=== PATIENT | female | born 1990 | race Caucasian/White ===

== ENCOUNTER → 2020-06-04 15:49 | Outpatient (CLI) | payer OTHER, SELFPAY ==
--- NOTE | ~2020-06-04 | US_ITS ---
EXAMINATION: US OB <=14 wk fetus w TV DATE: 06/04/2020 16:21 INDICATION: Establish viability and dating of during first trimester TECHNIQUE: Real-time pelvic ultrasound utilizing both a transvaginal and transabdominal probe was pe rformed. The interpreting radiologist was not present for the study. COMPARISON: None. FINDINGS: The retroverted uterus measures 9.0 x 6.4 x 7.1 cm. There is an intrauterine gestational sac. A yolk sac and pole are identified. The crown rump length measures 2.3 cm, which correlates with an e stimated gestational age of 9 weeks and 0 days. heart motion is identified measuring 171 beats per minute (bpm) by M-mode Doppler.8 x 5 x 5 mm hypoechoic subchorionic hematoma. The right ovary measures 3.1 x 1.9 x 2.6 cm. The left ovary measures 2.2 x 1.6 x 1.5 cm. 1.3 x 1.1 x 0.8 cm anechoic fluid collection along side the left ovary and favor small amount of free fluid over an exophytic cyst. IMPRESSION: 1. Single living fetus with heart rate of 171 bpm. 2. Gestational age by ultrasound of 9 weeks 0 day(s) +/- 6 day(s) with ultrasound estimated date of delivery (JAMARCUS) of 01/07/2021. 3. Very small subchorionic hematoma. Reviewed, dictated and finalized at [facility]. SALESPERSON IMPRESSION: 1. Single living fetus with heart rate of 171 bpm. 2. Gestational age by ultrasound of 9 weeks 0 day(s) +/- 6 day(s) with ultraso und estimated date of delivery (JAMARCUS) of 01/07/2021. 3. Very small subchorionic hematoma.
== END ==
PROVIDERS: Visit Provider Student in an Organized Health Care Education/Training Program
DX: Z32.00 Encounter for pregnancy test, result unknown (principal); Z3A.09 9 weeks gestation of pregnancy
CPT/HCPCS: 76801; 76817

== ENCOUNTER 2020-08-06 11:30 | Outpatient (CLI) | payer BC, SELFPAY ==
[2020-08-06 12:07] LABS: Add Urine Microscopic? YES; Appearance Urine Clear (Clear); Bacteria Urine Trace /hpf; Bilirubin Urine Negative (Negative); Blood Urine Negative (Negative); Color Urine Yellow (Yellow); Glucose Urine UA Negative (Negative); Ketones Urine Negative (Negative); Leukocyte Esterase Ur Negative LEU/UL (NEGATIVE); Mucus Urine Few /lpf; Nitrate Urine Negative (Negative); Protein Urine 1+ mg/dL (Negative); RBC Urine 0-2 /hpf (0-2); Squamous Epithelial Cell Urine Many /hpf (Few); WBC Urine 0-3 /hpf (0-3)
[2020-08-06 12:11] LABS: Basophils Percent Auto 0.2 % (0.2-1.2); Eosinophils Absolute Auto 0.2 K/mm3 (0-0.3); Eosinophils Percent Auto 1.8 % (0-4.4); Hematocrit 38.9 % (37.0-47.0); Immature Granulocyte Absolute 0.06 K/mm3 (0.00-0.031); Immature Granulocyte Percent A 0.5 % (0-0.5); Lymphocytes Absolute Auto 1.93 K/mm3 (0.9-3.2); Lymphocytes Percent Auto 17.6 % (18.3-44.2); Mean Corpuscular HGB Conc 33.4 g/dl (32-36); Mean Corpuscular Hemoglobin 30.2 pg (26-34); Mean Corpuscular Volume 90.3 fl (80-100); Mean Platelet Volume 9.1 fl (7.4-10.4); Monocytes Percent Auto 8.9 % (2.6-8.5); Neutrophils Absolute Auto 7.8 K/mm3 (1.3-6.7); Platelet Count Result 291 k/mm3 (150-375); Red Blood Count 4.31 M/mm3 (4.2-5.4); Red Cell Distribution Width 12.5 % (11.5-14.5)
[2020-08-06 13:00] LABS: Thyroid Stimulating Hormone 0.821 uIU/mL (0.465-4.680)
[2020-08-06 13:09] LABS: HIV 1/2 Ab P24 Ag Result Negative (Negative)
[2020-08-06 13:15] LABS: Vitamin D 25 Hydroxy 20.3 ng/mL
[2020-08-06 13:25] LABS: Hepatitis B Surface Antigen Negative (Negative); Rubella IgG Antibody 15.6 IU/ML
[2020-08-06 13:37] LABS: Hepatitis C Virus Antibody Negative (Negative)
[2020-08-07 14:28] LABS: Rapid Plasma Reagin Non-Reactive (NonReactive)
== END 2020-08-06 11:31 | disposition home or self-care (01) ==
LOC: ANHLAB 11:33
PROVIDERS: Visit Provider Student in an Organized Health Care Education/Training Program
DX: Z34.90 Encounter for supervision of normal pregnancy, unspecified, unspecified trimester (principal); Z3A.00 Weeks of gestation of pregnancy not specified
CPT/HCPCS: 36415; 81001; 82306; 84443; 85025; 86592; 86703; 86762; 86787; 86803; 86850; 86900; 86901; 87086; 87088; 87340; G0432

== ENCOUNTER 2020-10-02 15:16 | Outpatient (CLI) | payer BC, SELFPAY ==
[2020-10-02 16:50] LABS: Basophils Percent Auto 0.2 % (0.2-1.2); Eosinophils Absolute Auto 0.2 K/mm3 (0-0.3); Eosinophils Percent Auto 1.8 % (0-4.4); Hematocrit 34.3 % (37.0-47.0); Hemoglobin 11.2 g/dL (12.0-15.0); Immature Granulocyte Absolute 0.05 K/mm3 (0.00-0.031); Immature Granulocyte Percent A 0.4 % (0-0.5); Lymphocytes Absolute Auto 2.49 K/mm3 (0.9-3.2); Lymphocytes Percent Auto 20.7 % (18.3-44.2); Mean Corpuscular HGB Conc 32.7 g/dl (32-36); Mean Corpuscular Hemoglobin 29.2 pg (26-34); Mean Corpuscular Volume 89.3 fl (80-100); Mean Platelet Volume 8.8 fl (7.4-10.4); Monocytes Absolute Auto 0.9 K/mm3 (0.1-0.6); Monocytes Percent Auto 7.1 % (2.6-8.5); Neutrophils Absolute Auto 8.4 K/mm3 (1.3-6.7); Neutrophils Percent Auto 69.8 % (45.5-73.1); Platelet Count Result 260 k/mm3 (150-375); Red Blood Count 3.84 M/mm3 (4.2-5.4); Red Cell Distribution Width 12.6 % (11.5-14.5)
[2020-10-02 17:03] LABS: Glucose 1 Hour PP 50gm Dose 100 mg/dL
== END 2020-10-02 15:17 | disposition home or self-care (01) ==
PROVIDERS: Visit Provider Student in an Organized Health Care Education/Training Program
DX: Z34.82 Encounter for supervision of other normal pregnancy, second trimester (principal)
CPT/HCPCS: 36415; 82947; 85025

== ENCOUNTER 2020-12-04 12:39 | Outpatient (CLI) | payer BC, SELFPAY ==
[2020-12-04 13:23] LABS: Basophils Percent Auto 0.3 % (0.2-1.2); Eosinophils Absolute Auto 0.3 K/mm3 (0-0.3); Eosinophils Percent Auto 2.7 % (0-4.4); Hematocrit 33.5 % (37.0-47.0); Hemoglobin 10.5 g/dL (12.0-15.0); Immature Granulocyte Absolute 0.08 K/mm3 (0.00-0.031); Immature Granulocyte Percent A 0.7 % (0-0.5); Lymphocytes Absolute Auto 2.27 K/mm3 (0.9-3.2); Lymphocytes Percent Auto 18.9 % (18.3-44.2); Mean Corpuscular HGB Conc 31.3 g/dl (32-36); Mean Corpuscular Hemoglobin 26.8 pg (26-34); Mean Corpuscular Volume 85.5 fl (80-100); Mean Platelet Volume 9.3 fl (7.4-10.4); Monocytes Absolute Auto 1.2 K/mm3 (0.1-0.6); Monocytes Percent Auto 10.1 % (2.6-8.5); Neutrophils Absolute Auto 8.1 K/mm3 (1.3-6.7); Neutrophils Percent Auto 67.3 % (45.5-73.1); Platelet Count Result 258 k/mm3 (150-375); Red Blood Count 3.92 M/mm3 (4.2-5.4); Red Cell Distribution Width 13.3 % (11.5-14.5)
[2020-12-04 14:07] LABS: HIV 1/2 Ab P24 Ag Result Negative (Negative)
[2020-12-07 09:27] LABS: Rapid Plasma Reagin Non-Reactive (NonReactive)
== END 2020-12-04 12:40 | disposition home or self-care (01) ==
PROVIDERS: Visit Provider Student in an Organized Health Care Education/Training Program
DX: Z34.90 Encounter for supervision of normal pregnancy, unspecified, unspecified trimester (principal)
CPT/HCPCS: 36415; 85025; 86592; 86703; G0432

== ENCOUNTER 2020-12-30 11:25 | Outpatient (CLI) | payer BC, SELFPAY ==
[2020-12-30 12:15] LABS: Hematocrit 32.4 % (37.0-47.0); Hemoglobin 10.3 g/dL (12.0-15.0); Mean Corpuscular HGB Conc 31.8 g/dl (32-36); Mean Corpuscular Hemoglobin 26.4 pg (26-34); Mean Corpuscular Volume 83.1 fl (80-100); Mean Platelet Volume 9.8 fl (7.4-10.4); Platelet Count Result 235 k/mm3 (150-375); Red Cell Distribution Width 14.6 % (11.5-14.5); White Blood Count 8.9 K/mm3 (4.5-10.0)
[2020-12-31 06:49] LABS: Rapid Plasma Reagin Non-Reactive (NonReactive)
== END 2020-12-30 11:26 | disposition home or self-care (01) ==
LOC: ANHLAB 11:28
PROVIDERS: Visit Provider Student in an Organized Health Care Education/Training Program
DX: O34.211 Maternal care for low transverse scar from previous cesarean delivery (principal); Z3A.39 39 weeks gestation of pregnancy
CPT/HCPCS: 36415; 85027; 86592; 86850; 86900; 86901

== ENCOUNTER 2020-12-31 05:35 | Inpatient (IN) | payer BC, SELFPAY ==
--- NOTE | 2020-12-15 12:53 | PC.NURSE ---
VERIFIED WITH OR SCHEDULE AND PATIENT--C/S ON 12/31/20 AT 0730 PATIENT GIVEN REQUISITION FOR LAB DRAW ON 12/30/20
[2020-12-31] VITALS (54 sets, daily range): BP systolic 82–132; BP diastolic 42–81; PULSE 55–231; RESP 15–20; TEMP 36.3–36.9; O2SAT 95–100; BMI 40.6
[2020-12-31] MEDS: LACTATED RINGERS 1,000 ML 999 ML IV CONT ×3 (05:58→07:00)
--- NOTE | 2020-12-31 06:53 | LDADM ---
This patient, Yana Allan, was admitted to Labor/Delivery/Recovery 120 on 12/31/20 at 05:35. Plans for labor, pain management and were discussed with patient. Patient/family oriented to hospital policies and general routines including ID bracelet, bed and alarms, visiting hours, pain management, procedures, bathroom and other care routines, personal items, smoking policy, room service/diet and guest tray routines, infant security routines, and visiting hours. Patient/Family are encouraged to report perceived risks to care and to ask questions if they do not understand what they are told or what they should do. See OBIX for further documentation.
--- NOTE | 2020-12-31 07:11 | WPDANESEPPF ---
Anes - Initial Pre Proc Eval Procedure: Operation Date: 12/31/20 07:30 Proposed Procedures p Repeat Section - Sigrid Corley MD Date/Time: 12/31/20 07:11 Surgeon: Sigrid Corley MD Pre Op Diagnosis: Patient Data Age: 30 Gender: F Height: 1.6 m Weight: 104 kg Last Vital Signs Pulse 98 12/31/20 06:46 BP 130/59 L 12/31/20 06:46 Allergies Allergy/AdvReac Type Severity Reaction Status Date / Time mushroom Allergy Unknown Hives Verified 12/31/20 06:26 sesame oil Allergy Unknown Hives Verified 12/31/20 06:26 sunflower oil Allergy Unknown Hives Verified 12/31/20 06:26 Home Medications Medication Instructions Recorded Confirmed Type docosahexaenoic acid 200 mg capsule 200 mg PO DAILY 07/30/19 12/31/20 History Patient hx anesthesia problems: none Family hx anesthesia problems: none PMFSH Past Medical History Medical History Asthma LGSIL on Pap smear of cervix Surgical History Surgical History Delivery by section History of colposcopy Family History Family History Other Unknown family medical history Social History Social History Smoking status: Never smoker Second hand tobacco smoke exposure: No Alcohol intake: never Substance use: never Spiritual care concerns: No Anes - Eval Final PreProcedure Day of Procedure 12/31/20 07:11 Patient weight: morbidly obese Heart: regular rate and rhythm Lungs: clear to auscultation and normal air movement Airway: Mallampati scale class II Neurological: alert and oriented Last oral intake: >/= 8 hours ASA classification: III Emergent: no Anesthetic plan: proceed Anesthesia type and monitoring: regional spinal Informed Consent: The patient's anesthetic plan and its attendant risks and benefits were discussed with the patient/family/POA. Questions were solicited and answers provided to the satisfaction of the patient/family/POA.
--- NOTE | 2020-12-31 07:14 | PM.IMHP ---
H&P: HPI History of Present Illness Date/Time: 12/31/20 07:14 The patient is a 30-year-old last menstrual period 04/02/2020 currently 39 weeks gestation with estimated due date of 01/08/2020. Patient is dated by LMP consistent with ultrasound on 06/04/2020 at 9 weeks gestation. Patient presents to Labor and delivery for a scheduled repeat section. Fetus also in breech presentation. Patient reports feeling well today without complaints. Denies any vaginal bleeding, leakage of fluid, or contractions. Reports good movement. Previous section was performed for breech presentation. Chief Complaint: Previous section x 1 Breech presentation Review of Systems Review of Systems: All systems reviewed & are unremarkable except as noted in HPI and below Constitutional: Constitutional: Reports as per HPI, Reports no additional constitutional complaints, Denies chills, Denies fever(s), Denies headache(s) and Denies night sweats Eyes: Eyes: Reports as per HPI and Reports no additional eye complaints ENT: Reports system reviewed and no additional complaints, except as documented, Reports as per HPI, Reports Normal hearing present and Denies headache(s) Cardiovascular: Cardiovascular: Reports as per HPI, Reports no additional cardiovascular complaints, Denies chest pain and Denies dyspnea Respiratory: Respiratory: Reports as per HPI, Reports no additional respiratory complaints, Denies cough and Denies dyspnea Gastrointestinal: Gastrointestinal: Reports as per HPI, Reports no additional gastrointestinal complaints, Denies abdominal pain, Denies change in bowel habits, Denies change in stool character, Denies nausea and Denies vomiting Genitourinary: Genitourinary: Reports no additional female genitourinary complaints, Reports as per HPI, Denies abnormal vaginal bleeding, Denies genital lesions, Denies hot flashes, Denies dyspareunia, Denies pelvic pain, Denies sexual dysfunction, Denies urinary incontinence, Denies vaginal discharge, Denies vaginal dryness and Denies vaginal odor Musculoskeletal: Musculoskeletal: Reports no additional musculoskeletal complaints and Reports as per HPI Integumentary/Breasts: Skin/Breast: Reports system reviewed and no additional complaints, except as docu, Reports as per HPI, Denies breast pain and Denies nipple discharge Neurologic: Reports system reviewed and no additional complaints, except as documented, Reports as per HPI, Reports Normal hearing present and Denies headache(s) Psychiatric: Psychiatric: Reports no additional psychiatric complaints, Reports as per HPI, Denies anxiety and Denies depression Endocrine: Endocrine: Reports no additional endocrine complaints and Reports as per HPI Hematologic/Lymphatic: Hematologic/Lymphatic: Reports no additional hematologic/lymphatic complaints and Reports as per HPI Allergic/Immunologic: Allergic/Immunologic: Reports no additional allergic/immunologic complaints and Reports as per HPI PMFSH Past Medical History Medical History Asthma LGSIL on Pap smear of cervix Surgical History Surgical History Delivery by section History of colposcopy Family History Family History Other Unknown family medical history Social History Social History Smoking status: Never smoker Second hand tobacco smoke exposure: No Alcohol intake: never Substance use: never Spiritual care concerns: No Meds Home Medications and Allergies Home Medications Medication Instructions Recorded Confirmed Type docosahexaenoic acid 200 mg capsule 200 mg PO DAILY 07/30/19 12/31/20 History Allergies Allergy/AdvReac Type Severity Reaction Status Date / Time mushroom Allergy Unknown Hives Verified 12/31/20 06:26 sesame oi
[2020-12-31] MEDS: ceFAZolin 2 GM/D5W 50 ML 2 GM/50 ML BAG IVPB (07:16)
--- NOTE | 2020-12-31 07:21 | WPDHPUPDATE1 ---
History and Physical Update Update Date/Time: 12/31/20 07:21 History and Physical has been reviewed, including an updated exam of the patient. There are NO changes in the patient's condition. Risks, benefits, and alternatives have been discussed and questions answered. Patient agrees to proceed with procedure.
[2020-12-31] MEDS: KETOROLAC 30 MG/ML VIAL (*BKC) IV PUSH (09:15)
--- NOTE | 2020-12-31 09:23 | W.PM.PROC2 ---
Procedure Note - Detailed Date of Procedure 12/31/20 Pre-op Diagnosis Previous section x 1 Breech presentation Post-op Diagnosis same Procedure Performed Repeat low transverse section via Pfannenstiel Surgeon Sigrid Corley MD Staffing Coordinator Bonnie Limon Anesthesia spinal Findings Live female in cephalic presentation, apgars 8/9, weighing 8 lbs. 5 oz.; clear amniotic fluid; normal appearing uterus, ovaries, and fallopian tubes; two small approximately 1 cm paratubal cysts noted, one on the left side and one on the right side Description of Procedure The patient was taken to the operating room, where she self-transferred to the operating room table. Spinal anesthesia was administered and found to be adequate. The patient was placed in dorsal supine position with a leftward tilt. She was prepped and draped in the usual sterile fashion. Spinal anesthesia was tested and found to be adequate. A Pfannenstiel skin incision was made with a scalpel and carried through to underlying layer of fascia with the Bovie. Dense scar tissue was noted. The fascia was incised in the midline and the incision was extended laterally with the use of forceps and Naylor scissors. The inferior aspect of the fascial incision was grasped with Mary clamps, elevated, and the underlying rectus muscle were dissected off with Naylor scissors. Attention was then turned to the superior aspect of the fascial incision, which in a similar manner, was grasped with Mary clamps, elevated, and the underlying rectus muscles were also dissected off with Naylor scissors. The rectus muscles were in the midline and the peritoneal cavity was entered bluntly. This incision was extended superiorly and inferiorly with good visualization of the bladder and care was taken to avoid blood vessels. A bladder blade was inserted. The vesicouterine peritoneum was identified and incised sharply with Metzenbaum scissors. This incision was extended laterally with Metzenbaum scissors and a bladder flap was created digitally. The bladder blade was replaced. A low-transverse uterine incision was made with a scalpel. This incision was extended laterally with bandage scissors. Amniotomy was performed. Clear amniotic fluid was noted. Infant's buttocks were identified and guided to the uterine incision. The buttocks were then delivered through the incision. Infant was in michael breech presentation as both legs were fully extended towards head. The sacral crests were grasped and was slowly guided through incision. Terminal meconium was noted and infant voided. The was grasped with a blue towel. When infant was delivered to a level above the abdomen, the right lower extremity was flexed and completely delivered. The infant was gently rotated to the right and the left lower extremity was delivered. The infant was then guided to the level of the scapulae. was rotated to the left and the right upper extremity was flexed and delivered. The infant was then rotated to the right and the left upper extremity was flexed and delivered. The head was then flexed and delivered easily and without difficulty. The entire was delivered atraumatically. Infant's nose and mouth were suctioned bulb suction. The cord was clamped and cut and the was handed off to waiting nursing staff. A segment of cord was collected for cord gases. Cord blood was also collected. The placenta was then delivered manually with gentle uterine massage. Uterus was exteriorized and cleared of all clots and debris. The uterine incision was reapproximated with 0 Vicryl in a running, locked fashion. A second imbricating layer using 0 Monocryl performed. A small area of bleeding inferior to the uterine incision was noted. A single figure of eight suture was placed. Excellent hemostasis was noted. On inspection, the uterus, ovaries, and fallopian tubes appeared to be normal bilaterally. Two small 1cm paratubal cysts were noted, one o
[2020-12-31] MEDS: OXYTOCIN 30 UNITS/NS 500 ML 30 UNITS/500 ML BAG 125 UNITS IV CONT (10:21)
--- NOTE | 2020-12-31 12:02 | PC.NURSE ---
Patient transferred to post room #281 via stretcher. Support person present. Oriented to unit, room, information board, rooming in, admission packet and security measures. Patient verbalizes understanding.
[2020-12-31] MEDS: DEXTROSE 5%/0.45% SOD CHL 1,000 ML 125 ML IV CONT (15:00)
[2020-12-31] MEDS: HYDROcodone/acetaminophen (*CRX) 5-325 MG TABLET 1 TAB PO (21:40)
[2020-12-31] MEDS: IBUPROFEN 600 MG TABLET PO (21:40)
[2021-01-01 03:00] VITALS: BP 101/57; PULSE 90; RESP 16; TEMP 36.9
[2021-01-01 04:54] LABS: Basophils Percent Auto 0.3 % (0.2-1.2); Eosinophils Absolute Auto 0.1 K/mm3 (0-0.3); Hematocrit 28.9 % (37.0-47.0); Hemoglobin 8.7 g/dL (12.0-15.0); Immature Granulocyte Absolute 0.06 K/mm3 (0.00-0.031); Immature Granulocyte Percent A 0.6 % (0-0.5); Lymphocytes Absolute Auto 2.19 K/mm3 (0.9-3.2); Lymphocytes Percent Auto 20.5 % (18.3-44.2); Mean Corpuscular HGB Conc 30.1 g/dl (32-36); Mean Corpuscular Hemoglobin 25.3 pg (26-34); Mean Platelet Volume 10.2 fl (7.4-10.4); Monocytes Absolute Auto 1.1 K/mm3 (0.1-0.6); Monocytes Percent Auto 10.3 % (2.6-8.5); Neutrophils Absolute Auto 7.2 K/mm3 (1.3-6.7); Neutrophils Percent Auto 67.3 % (45.5-73.1); Platelet Count Result 216 k/mm3 (150-375); Red Blood Count 3.44 M/mm3 (4.2-5.4); Red Cell Distribution Width 14.5 % (11.5-14.5); White Blood Count 10.7 K/mm3 (4.5-10.0)
[2021-01-01 08:15] VITALS: BP 97/56; PULSE 89; RESP 18; TEMP 37.3; O2SAT 99
[2021-01-01] MEDS: POLYSACCHARIDE IRON COMPLEX 150 MG CAPSULE PO ×2 (08:31→17:09)
[2021-01-01] MEDS: DOCUSATE SODIUM 100 MG CAPSULE PO ×2 (08:31→17:09)
[2021-01-01] MEDS: MULTIVIT/MIN/PREN/FOL AC/IRON TABLET 1 TAB PO (08:32)
[2021-01-01] MEDS: IBUPROFEN 600 MG TABLET PO ×3 (08:32→20:47)
--- NOTE | 2021-01-01 08:52 | WPDANLDPN2 ---
Anes-Prog Note L&D Date/Time: 01/01/21 08:52 Comfortable throughout: section Neuraxial method: spinal Epidural/Spinal procedure site: clean & non-tender Neuro status: Neuro function grossly intact. Cardiovascular status: normal Respiratory status: normal Airway patency: baseline Mental status: baseline Post-Op hydration status: normal Vital Signs: Last Vital Signs Temp 36.9 C 01/01/21 03:00 Pulse 90 01/01/21 03:00 Resp 16 01/01/21 03:00 BP 101/57 L 01/01/21 03:00 Pulse Ox 99 12/31/20 16:15 Pain score (VAS): 0 I/O: Intake & Output 12/31/20 01/01/21 01/01/21 23:59 07:59 15:59 Intake Total 2700 Output Total 125 1300 Balance 2575 -1300 Post-procedural complaints: none Patient feedback: Patient satisfied with anesthetic care.
--- NOTE | 2021-01-01 08:52 | WPDANLDNPN2 ---
Anes-Prog Note L&D-Neuraxial Date/Time: 01/01/21 08:52 Neuraxial medications: intrathecal PF morphine Opiod-related complaints: none Patient feedback: Patient satisfied with post-operative pain management.
--- NOTE | 2021-01-01 10:22 | P.PNOB_ITS ---
OB - PN: Subj Subjective Date/time seen: 01/01/21 10:22 Patient doing well this morning. Pain well controlled with medication. Denies any headache, chest pain, shortness of breath, nausea, or vomiting. Tolerating PO diet. Ndiaye catheter recently removed. Ambulating without difficulty. Has voided once. No flatus yet. OB - PN: Obj Data Labs CBC & Chem 7: 01/01/21 03:41 Labs: Laboratory Results - last 24 hr 01/01/21 03:41 WBC 10.7 H RBC 3.44 L Hgb 8.7 L Hct 28.9 L MCV 84.0 MCH 25.3 L MCHC 30.1 L RDW 14.5 Plt Count 216 MPV 10.2 Immature Gran % (Auto) 0.6 H Neut % (Auto) 67.3 Lymph % (Auto) 20.5 [place] % (Auto) 10.3 H Eos % (Auto) 1.0 Baso % (Auto) 0.3 Lymph # (Auto) 2.19 [place] # (Auto) 1.1 H Eos # (Auto) 0.1 Baso # (Auto) 0.0 Abs Immat Gran (auto) 0.06 H Absolute Neuts (auto) 7.2 H Absolute Nucleated RBC 0.0 Nucleated RBC % 0.0 OB - PN A/P Assessment and Plan (1) Delivery by section for breech presentation: Code(s): O32.1XX0 - Maternal care for breech presentation, not applicable or unspecified Status: Acute Assessment and Plan: POD#1 doing well pain management PRN encourage ambulation and use of IS possible dc home tomorrow Time Spent With Patient Time: Total time spent is greater than 50% in coordination of care (as documented) at patient's floor/unit and/or counseling patient: Exam Const: General: cooperative, healthy appearing, comfortable and no acute distress GI: Inspection: non-distended GI Palp: Yes Soft to palpation and Yes Tenderness to palpation present (GI) (appropriately tender) Other: incision c/d/i Extrem: Right lower extremity: edema Details: 2+ Left lower extremity: edema Details: 2+ Other: no calf tenderness
[2021-01-01] MEDS: HYDROcodone/acetaminophen (*CRX) 5-325 MG TABLET 1 TAB PO ×2 (14:43→19:10)
[2021-01-01 20:45] VITALS: BP 115/61; PULSE 96; RESP 18; TEMP 36.5; O2SAT 98
[2021-01-02] MEDS: HYDROcodone/acetaminophen (*CRX) 5-325 MG TABLET 1 TAB PO (02:30)
[2021-01-02] MEDS: IBUPROFEN 600 MG TABLET PO ×2 (02:31→10:22)
[2021-01-02 08:00] VITALS: BP 124/74; PULSE 88; RESP 18; TEMP 36.8; O2SAT 99
--- NOTE | 2021-01-02 08:09 | PM.OBPNVD ---
OB - PN: Subj Subjective Date/time seen: 01/02/21 08:09 Patient comments: no complaints, pain well controlled, tolerating diet, flatus present and other (Ambulating and voiding without problems. Lochia similar to menses) baby status: doing well OB - PN: Obj Data Labs CBC & Chem 7: 01/01/21 03:41 OB - PN A/P Plan day: 2 (s/p C section, doing well) Plan: routine care and discharge home (Follow up in 2 weeks) Time Spent With Patient Time: Total time spent is greater than 50% in coordination of care (as documented) at patient's floor/unit and/or counseling patient: Time with patient: less than 15 minutes Exam Const: General: no acute distress Resp: Auscultation: clear to auscultation bilaterally Cardio: Rate: regular rate Rhythm: regular rhythm GI: Inspection: non-distended, incision (Intact without erythema, drainage, or induration) and other (Fundus firm and nontender below umbilicus) GI Palp: Yes abdominal tenderness (appropriate) and Yes Soft to palpation Extrem: General: no edema
--- NOTE | 2021-01-02 08:10 | PM.OBDSVD ---
DS: Admitting Diagnosis Admitting Diagnosis Admitting Diagnosis: breech presentation, prior C section DS: Discharge Diagnosis Discharge Diagnosis (1) Delivery by section for breech presentation: Code(s): O32.1XX0 - Maternal care for breech presentation, not applicable or unspecified Status: Acute OB - DS: Summary OB Procedures : None OB Procedures Intrapartum: OB Procedures: : None Peripartum Data Delivery Method: Section Procedures: Procedures Operation Date: 12/31/20 07:30 Actual Procedure Side Surgeon p Repeat Section Sigrid Corley MD complications: none Status at Discharge Functional status at discharge: independent ambulation Overall status at discharge: patient is progressing back to baseline Time Spent with Patient Time attestation: Total time spent providing and/or coordinating discharge services: Time spent: Less than 30 minutes Discharge Plan Discharge Attending physician on discharge: Sigrid Corley Discharging Clinician: Nina Apodaca Patient Disposition: Home, Self-Care Activity: may shower and pelvic rest Diet: as tolerated Wound Care Instructions: incision open to air Patient Instructions: Antibiotic Form Stand Alone Forms: General Discharge Information Follow-up/Referrals: Sigrid Corley MD [Physician] - 2 Weeks Discharge Medications: New hydrocodone-acetaminophen 5-325 mg Tablet 1 tablet PO Q4H PRN (Reason: Moderate Pain (4-6)) Qty: 30 RF: 0 ibuprofen 600 mg Tablet 600 mg PO Q6H PRN (Reason: Cramping) Qty: 60 RF: 0 Continued DHA 200 mg capsule 200 mg PO DAILY RF: 0 Date of admission: 12/31/20 05:35 Primary Care Provider: PHYSICIAN,[employer] INSTRUCTOR Admitting Provider: Sigrid Corley Attending physician on admission: Sigrid Corley Condition: Stable
[2021-01-02] MEDS: POLYSACCHARIDE IRON COMPLEX 150 MG CAPSULE PO (10:21)
[2021-01-02] MEDS: MULTIVIT/MIN/PREN/FOL AC/IRON TABLET 1 TAB PO (10:22)
[2021-01-02] MEDS: DOCUSATE SODIUM 100 MG CAPSULE PO (10:22)
[2021-01-04 10:31] VITALS: BP 136/87; PULSE 83; RESP 20; TEMP 36.9; O2SAT 100
== END 2021-01-02 14:14 | disposition home or self-care (01) | DRG 788 ==
LOC: ANHOB2 01-02 13:11 → ANHLDR 01-05 06:59 → ANHOB2 01-05 06:59
PROVIDERS: Admitting Provider Student in an Organized Health Care Education/Training Program; Visit Provider Obstetrics & Gynecology
PROC: 10D00Z1 Extraction of Products of Conception, Low, Open Approach (ICD-10-PCS; CPT 59514; principal; 2020-12-31 07:30)
DX: O34.211 Maternal care for low transverse scar from previous cesarean delivery (principal); O32.1XX0 Maternal care for breech presentation, not applicable or unspecified; O34.83 Maternal care for other abnormalities of pelvic organs, third trimester; Z3A.39 39 weeks gestation of pregnancy; Z37.0 Single live birth; N83.8 Other noninflammatory disorders of ovary, fallopian tube and broad ligament
CPT/HCPCS: 36415; 85025; A9270; J0131; J0690; J1885; J2274; J2370; J2405; J2590; J7120

== ENCOUNTER → 2022-12-22 15:35 | Outpatient (CLI) | payer OTHER, SELFPAY ==
--- NOTE | ~2022-12-22 | US_ITS ---
. US OB <=14 wk fetus w TV DATE: 12/22/2022 16:04 INDICATION: age and viability determination TECHNIQUE: Real-time imaging and Doppler analysis COMPARISON: None FINDINGS: The uterus measures 9.5 cm height, 5.0 cm AP and 5.1 cm transverse dimension. A normally sh aped intrauterine gestational sac is noted in the uterine fundus, with normal surrounding hyperechoge nicity consistent with normal decidual reaction. Yolk sac and pole are identified, with h eart rate of 176 bpm. There is an approximately 2.6 x 9 x 6 mm sonolucency and another 2.7 x 6.4 x 3 mm sonolucency subjace nt to the gestational sac, suggesting small areas of subchorionic hemorrhage, undermining only a smal l percentage of the gestational sac. [place]-rump length averages 2.04 cm, consistent with estimated gestational age of 8 weeks 4 days +/- 5 days, with JAMARCUS of 07/30/2023. Approximately 1 cm left ovarian cyst. Smaller right ovarian follicular cyst. No abnormal pelvic free fluid collection is detected. IMPRESSION: Estimated gestational age of 8 weeks 4 days +/- 5 days, with JAMARCUS of 07/30/2023 2 small areas of subchorionic hemorrhage, undermining only a very small percentage of the gestational sac Reviewed, dictated and finalized at [facility] Reviewed, dictated and finalized at [facility]. IMPRESSION: Estimated gestational age of 8 weeks 4 days +/- 5 days, with JAMARCUS of 07/30/2023 2 small areas of subchorionic hemorrhage, undermining only a very small percent age of the gestational sac
== END ==
PROVIDERS: PCP Family Medicine Sports Medicine; Visit Provider Registered Nurse
DX: Z36.87 Encounter for antenatal screening for uncertain dates (principal); O46.91 Antepartum hemorrhage, unspecified, first trimester; Z3A.08 8 weeks gestation of pregnancy
CPT/HCPCS: 76801; 76817

== ENCOUNTER 2023-01-13 16:28 | Outpatient (CLI) | payer OTHER, SELFPAY ==
--- NOTE | ~2023-01-13 | US_ITS ---
EXAMINATION: US OB <= 14 weeks fetus DATE: 01/13/2023 17:02 INDICATION: Abnormal ultrasound finding on screening during first trimester of TECHNIQUE: Real-time pelvic ultrasound utilizing transabdominal probe was performed. The [place] val[place]ia radiologist was not present for the study. COMPARISON: 12/22/2022 FINDINGS: There is an intrauterine gestational sac with single fetus. The crown rump length measures 5.4 cm, wh ich correlates with an estimated gestational age of 12 weeks and 0 days. heart motion is identi fied measuring 157 beats per minute (bpm) by M-mode Doppler. Placenta appears to be forming on the le ft. No evident subchorionic hematoma. The right ovary measures 3.0 x 1.7 x 2.2 with internal vascular flow on color Doppler. The left ovary is not visualized. There is no free fluid in the pelvis. IMPRESSION: 1. Single living fetus with heart of 157 bpm. 2. [place]-rump length concordant within 2 days of the previously estimated gestational age by ultrasou nd of 11 weeks 5 days with ultrasound estimated date of delivery (JAMARCUS) of 07/30/2023 based upon prior ultrasound performed on 12/22/2022. 3. No evident subchorionic hematoma. Reviewed, dictated and finalized at [facility]. IMPRESSION: 1. Single living fetus with heart of 157 bpm. 2. [place]-rump length concordant within 2 days of the previously estimated gesta tional age by ultrasound of 11 weeks 5 days with ultrasound estimated date of d elivery (JAMARCUS) of 07/30/2023 based upon prior ultrasound performed on 12/22/2022. 3. No evident subchorionic hematoma.
== END 2023-01-13 16:29 | disposition home or self-care (01) ==
PROVIDERS: PCP Family Medicine Sports Medicine; Visit Provider Obstetrics & Gynecology
DX: O28.3 Abnormal ultrasonic finding on antenatal screening of mother (principal); Z3A.11 11 weeks gestation of pregnancy
CPT/HCPCS: 76801

== ENCOUNTER 2023-01-19 09:45 | Outpatient (CLI) | payer OTHER, SELFPAY ==
[2023-01-19 10:34] LABS: Basophils Percent Auto 0.3 % (0.2-1.2); Eosinophils Absolute Auto 0.1 K/mm3 (0-0.3); Eosinophils Percent Auto 1.8 % (0-4.4); Hematocrit 38.5 % (37.0-47.0); Hemoglobin 12.6 g/dL (12.0-15.0); Immature Granulocyte Absolute 0.02 K/mm3 (0.00-0.031); Immature Granulocyte Percent A 0.3 % (0-0.5); Lymphocytes Absolute Auto 1.71 K/mm3 (0.9-3.2); Lymphocytes Percent Auto 23.7 % (18.3-44.2); Mean Corpuscular HGB Conc 32.7 g/dl (32-36); Mean Corpuscular Hemoglobin 28.6 pg (26-34); Mean Corpuscular Volume 87.3 fl (80-100); Mean Platelet Volume 9.1 fl (7.4-10.4); Monocytes Absolute Auto 0.6 K/mm3 (0.1-0.6); Monocytes Percent Auto 7.6 % (2.6-8.5); Neutrophils Absolute Auto 4.8 K/mm3 (1.3-6.7); Neutrophils Percent Auto 66.3 % (45.5-73.1); Platelet Count Result 314 k/mm3 (150-375); Red Blood Count 4.41 M/mm3 (4.2-5.4); Red Cell Distribution Width 13.4 % (11.5-14.5); White Blood Count 7.2 K/mm3 (4.5-10.0)
[2023-01-19 10:40] LABS: Appearance Urine Clear (Clear); Bilirubin Urine Negative (Negative); Blood Urine Negative (Negative); Color Urine Yellow (Yellow); Glucose Urine UA Negative (Negative); Ketones Urine Trace mg/dL (Negative); Leukocyte Esterase Ur Negative LEU/UL (NEGATIVE); Nitrate Urine Negative (Negative); Protein Urine Negative (Negative); Specific Grav Ur 1.028 (1.001-1.035)
[2023-01-19 10:46] LABS: Add Urine Microscopic? NO
[2023-01-19 11:15] LABS: Thyroid Stimulating Hormone 0.184 uIU/mL (0.465-4.680)
[2023-01-19 11:24] LABS: HIV 1/2 Ab P24 Ag Result Negative (Negative)
[2023-01-19 11:36] LABS: Rubella IgG Antibody 17.2 IU/ML
[2023-01-19 11:40] LABS: Hepatitis B Surface Antigen Negative (Negative)
[2023-01-19 11:50] LABS: Hepatitis C Virus Antibody Negative (Negative)
[2023-01-20 16:39] LABS: Rapid Plasma Reagin Non-Reactive (NonReactive)
[2023-01-23 18:32] LABS: Hematocrit 38.2 % (35.0-45.0); Hemoglobin 12.7 g/dL (11.7-15.5); MCH 28.6 pg (27.0-33.0); RDW 13.9 % (11.0-15.0); Red Blood Cell Count 4.44 Mill/uL (3.80-5.10)
== END 2023-01-19 09:46 | disposition home or self-care (01) ==
PROVIDERS: PCP Family Medicine Sports Medicine; Visit Provider Obstetrics & Gynecology
DX: Z34.90 Encounter for supervision of normal pregnancy, unspecified, unspecified trimester (principal); Z3A.00 Weeks of gestation of pregnancy not specified
CPT/HCPCS: 36415; 81003; 82306; 83021; 84443; 85025; 86592; 86703; 86762; 86787; 86803; 86850; 86900; 86901; 87086; 87088; 87147; 87340; G0432

== ENCOUNTER 2023-02-26 22:29 | Inpatient (IN) | payer OTHER, SELFPAY ==
[2023-02-26 22:36] VITALS: BP 133/87; PULSE 89; RESP 16; TEMP 36.2; O2SAT 100
--- NOTE | 2023-02-26 23:24 | ED.GENADULT ---
HPI - General Adult General Chief complaint: Vaginal Bleeding Stated complaint: 18 weeks vag bleeding. Time Seen by Provider: 02/26/23 22:43 History of Present Illness HPI narrative: This is a 32-year-old female G5 P 2021 with miscarriages at 12 weeks x2 presenting ED with vaginal bleeding. Patient is currently 18 weeks . There this morning she started have some cramping and is now having some spotting with increased bleeding. She has not gone through more than 1 pad. Patient reach out to her OBGYN Dr. Prabhakar was advised to come to the emergency room for evaluation. Related Data Home Medications Medication Instructions Recorded Confirmed docosahexaenoic acid 200 mg 200 mg PO DAILY 07/30/19 01/20/23 capsule ( DHA) Allergies Allergy/AdvReac Type Severity Reaction Status Date / Time mushroom Allergy Unknown Hives Verified 02/14/23 11:04 sesame oil Allergy Unknown Hives Verified 02/14/23 11:04 sunflower oil Allergy Unknown Hives Verified 02/14/23 11:04 PMFSH Past Medical History Medical History Asthma LGSIL on Pap smear of cervix Miscarriage x2 Surgical History Surgical History Delivery by section x2 History of colposcopy Family History Family History Other Unknown family medical history Social History Social History Smoking status: Never smoker Second hand tobacco smoke exposure: No Alcohol intake: never Substance use: never Lack of Transportation: No Lack of Food: Never True Current Housing: I Have Housing Concerned About Future Housing: No Difficulty Paying Gas/Electric Bills: No Difficulty Paying for Meds: No Currently Unemployed: No Education: Associate Degree Difficulty w/ Childcare or Family Care: No Spiritual care concerns: No Exam Narrative: APPEARANCE: No apparent distress. Head: atraumatic. EYES: EOMI, NOSE: Atraumatic NECK: Trachea midline RESPIRATORY: No increased rate of breathing CARDIOVASCULAR: RRR, ABDOMINAL: soft nontender no guarding or rebound MUSCULOSKELETAl: No obvious deformities NEURO: Alert. Moving 4/4 extremities SKIN:: Warm, dry. Normal color PSYCHIATRIC: Normal affec point of care transabdominal OB ultrasound revealed an intrauterine fetus with no visible heart rate.t Course Vital Signs Vital signs: Vital Signs Temperature 97.1 F L 02/26/23 22:36 Pulse Rate 89 02/26/23 22:36 Respiratory Rate 16 02/26/23 22:36 Blood Pressure 133/87 02/26/23 22:36 Pulse Oximetry 100 02/26/23 22:36 Oxygen Delivery Room Air 02/26/23 22:36 Temperature 97.1 F L 02/26/23 22:36 Pulse Rate 89 02/26/23 22:36 Respiratory Rate 16 02/26/23 22:36 Blood Pressure 133/87 02/26/23 22:36 Pulse Oximetry 100 02/26/23 22:36 Oxygen Delivery Room Air 02/26/23 22:36 Medical Decision Making MDM Narrative Medical decision making narrative: -Presentation: 32-year-old female presenting with abdominal cramping and spotting. -DDX includes but is not limited to: Intrauterine demise, spotting of , postcoital bleeding -Co-morbidities complicating care: multiple miscarriages at 12 weeks -Social determinants of health: lives with her -External Chart Review: review of OBGYN notes from February 14 - from independent Sources: at bedside -Independent interpretation of studies: point of care transabdominal ultrasound revealed no heart rate. -Discussion of Management/Consultants: Dr. Prabhakar - OB -Shared decision making / Disposition: no for heart tones on my point of care transabdominal ultrasound. No formal ultrasounds are available this time. Case was discussed with Dr. Prabhakar would like the patient admitted to [facility]
[2023-02-26 23:46] LABS: Appearance Urine Cloudy (Clear); Bacteria Urine None Seen /hpf; Bilirubin Urine Negative (Negative); Blood Urine 3+ (Negative); Color Urine Dark Yellow (Yellow); Glucose Urine UA Negative (Negative); Ketones Urine 1+ mg/dL (Negative); Leukocyte Esterase Ur 1+ LEU/UL (Negative); Nitrate Urine Negative (Negative); Non Pathogenic Casts 0-2; Protein Urine Trace mg/dL (Negative); RBC Urine >100 /hpf (0-2); Squamous Epithelial Cell Urine None seen /hpf (Few); pH Urine 5.5 (5.0-9.0)
[2023-02-26 23:49] LABS: Add Urine Microscopic? YES
[2023-02-26 23:53] LABS: Basophils Percent Auto 0.2 % (0.2-1.2); Eosinophils Absolute Auto 0.1 K/mm3 (0-0.3); Eosinophils Percent Auto 0.7 % (0-4.4); Hematocrit 35.9 % (37.0-47.0); Hemoglobin 11.9 g/dL (12.0-15.0); Immature Granulocyte Absolute 0.04 K/mm3 (0.00-0.031); Immature Granulocyte Percent A 0.3 % (0-0.5); Lymphocytes Absolute Auto 2.57 K/mm3 (0.9-3.2); Mean Corpuscular HGB Conc 33.1 g/dl (32-36); Mean Corpuscular Hemoglobin 28.5 pg (26-34); Mean Corpuscular Volume 86.1 fl (80-100); Monocytes Absolute Auto 0.9 K/mm3 (0.1-0.6); Monocytes Percent Auto 6.4 % (2.6-8.5); Neutrophils Absolute Auto 9.9 K/mm3 (1.3-6.7); Neutrophils Percent Auto 73.4 % (45.5-73.1); Platelet Count Result 253 k/mm3 (150-375); Red Blood Count 4.17 M/mm3 (4.2-5.4); Red Cell Distribution Width 12.9 % (11.5-14.5); White Blood Count 13.5 K/mm3 (4.5-10.0)
[2023-02-26] MEDS: ACETAMINOPHEN 500 MG TABLET 1000 MG PO (23:55)
[2023-02-27] VITALS (52 sets, daily range): BP systolic 90–130; BP diastolic 41–99; PULSE 52–244; RESP 15–16; TEMP 36.5–37.1; O2SAT 92–100
[2023-02-27 00:04] LABS: Partial Thromboplastin Time 26.2 SECONDS (22.3-36.8); Prothrombin Time 13.5 Seconds (11.1-14.7)
[2023-02-27] MEDS: LACTATED RINGERS 1,000 ML 125 ML IV CONT (00:30)
[2023-02-27] MEDS: HYDROmorphone HCL INJ (*CRX) 1 MG/ML SYR 0.5 MG IV PUSH (00:35)
--- NOTE | 2023-02-27 00:50 | WPDANESEPP ---
Anes - Eval Pre Procedure Procedure: labor epidural Date/Time: 02/27/23 00:50 Surgeon: merlin Preop Diagnosis: pain during labor, demise Pre Op Diagnosis: demise Patient Data Age: 32 Gender: F Height: 1.63 m Weight: 106.7 kg Last Vital Signs Temp 36.2 C L 02/26/23 22:36 Pulse 58 L 02/27/23 00:31 Resp 16 02/26/23 22:36 BP 119/68 02/27/23 00:31 Pulse Ox 98 02/27/23 00:33 O2 Del Method Room Air 02/26/23 22:36 Allergies Allergy/AdvReac Type Severity Reaction Status Date / Time mushroom Allergy Unknown Hives Verified 02/14/23 11:04 sesame oil Allergy Unknown Hives Verified 02/14/23 11:04 sunflower oil Allergy Unknown Hives Verified 02/14/23 11:04 Home Medications Medication Instructions Recorded Confirmed Type docosahexaenoic acid 200 mg 200 mg PO DAILY 07/30/19 01/20/23 History capsule ( DHA) ondansetron HCl 4 mg tablet 4 mg PO Q6H PRN nausea and 02/14/23 Rx vomiting #20 tabs Laboratory Tests 02/26/23 02/26/23 23:32 23:48 WBC 13.5 H K/mm3 (4.5-10.0) RBC 4.17 L M/mm3 (4.2-5.4) Hgb 11.9 L g/dL (12.0-15.0) Hct 35.9 L % (37.0-47.0) MCV 86.1 fl (80-100) MCH 28.5 pg (26-34) MCHC 33.1 g/dl (32-36) RDW 12.9 % (11.5-14.5) Plt Count 253 k/mm3 (150-375) MPV 9.0 fl (7.4-10.4) Immature Gran % (Auto) 0.3 % (0-0.5) Neut % (Auto) 73.4 H % (45.5-73.1) Lymph % (Auto) 19.0 % (18.3-44.2) [place] % (Auto) 6.4 % (2.6-8.5) Eos % (Auto) 0.7 % (0-4.4) Baso % (Auto) 0.2 % (0.2-1.2) Lymph # (Auto) 2.57 K/mm3 (0.9-3.2) [place] # (Auto) 0.9 H K/mm3 (0.1-0.6) Eos # (Auto) 0.1 K/mm3 (0-0.3) Baso # (Auto) 0.0 K/mm3 (0.0-0.1) Abs Immat Gran (auto) 0.04 H K/mm3 (0.00-0.031) Absolute Neuts (auto) 9.9 H K/mm3 (1.3-6.7) Absolute Nucleated RBC 0.0 K/mm3 (0.0-0.012) Nucleated RBC % 0.0 % (0.0-0.2) PT 13.5 Seconds (11.1-14.7) INR 1.0 APTT 26.2 SECONDS (22.3-36.8) Sodium Pending Potassium Pending Chloride Pending Carbon Dioxide Pending Anion Gap Pending BUN Pending Creatinine Pending Estim Creat Clear Calc Pending Estimated GFR Pending Glucose Pending Calcium Pending Beta HCG, Quant 683.61 mIU/ML Urine Color Dark yellow (Yellow) Urine Appearance Cloudy H (Clear) Urine pH 5.5 (5.0-9.0) Ur Specific [place] 1.020 (1.001-1.035) Urine Protein Trace mg/dL (Negative) Urine Glucose (UA) Negative mg/dL (Negative) Urine Ketones 1+ H mg/dL (Negative) Ur Blood (Man) 3+ H (Negative) Urine Nitrate Negative (Negative) Urine Bilirubin Negative (Negative) Urine Urobilinogen 1.0 mg/dL (<2.0) Leukocyte Esterase Rfl 1+ H ANALI/UL (Negative) Urine RBC >100 H /hpf (0-2) Urine WBC 6-10 H /hpf Ur Squamous Epith Cells None seen /hpf (Few) Urine Bacteria None seen /hpf Urine Casts 0-2 Patient hx anesthesia problems: none Family hx anesthesia problems: none Results Review: All pre-operative results and documents have been reviewed as part of the pre-operative evaluation. [facility] Past Medical History Medical History Asthma LGSIL on Pap smear of cervix Miscarriage x2 Surgical History Surgical History Delivery by section x2 History of colposcopy Family History Family History Other Unknown family medical history Social History Social History Smoking status: Never smoker Second
[2023-02-27] MEDS: fentaNYL CITRATE INJ (*CRX) 100 MCG/2 ML VIAL 50 MCG IV PUSH (00:56)
[2023-02-27 01:22] LABS: Anion Gap 9 mmol/L (8-16); Blood Urea Nitrogen 4 mg/dL (7-17); Calcium 8.4 mg/dL (8.4-10.2); Carbon Dioxide 20 mmol/L (22-30); Chloride 107 mmol/L (98-107); Estimated CRCL calculation 195 ml/min; Estimated Glomerular Filt Rate > 60; Glucose 125 mg/dL (65-110); Potassium 3.5 mmol/L (3.4-5.0); Sodium 136 mmol/L (137-145)
[2023-02-27 01:42] LABS: Free T4 Free Thyroxine 1.26 ng/mL (0.78-2.19); Hemoglobin A1C 5.4 % (<5.7); Thyroid Stimulating Hormone 0.382 uIU/mL (0.465-4.680)
[2023-02-27] MEDS: OXYTOCIN 30 UNITS/NS 500 ML 30 UNITS/500 ML BAG 999 UNITS IV CONT (02:47)
[2023-02-27] MEDS: miSOPROStol 200 MCG TABLET 600 MCG VAGINAL (02:50)
[2023-02-27 02:54] LABS: Barbiturate Screen Urine Negative (Negative); Benzodiazepines Screen Urine Negative (Negative)
--- NOTE | 2023-02-27 02:59 | PM.IMHP ---
H&P: HPI History of Present Illness Date/Time: 02/27/23 02:59 Chief Complaint: demise Narrative: Patient at 19 weeks by LMP presented to ED with complaints of vaginal bleeding. She had mild spotting early afternoon and was told to rest and if increased or cramping then call back. She called with increase bleeding and instructed to go to ED. In ED, cardiac activity could not be detected by ultrasound. She then started having severe contractions. I did another bedside ultrasound while she was in the ED and I also could not detect heart tones. The fetus was in the lower uterus. Normal amount of amniotic fluid noted. She was informed of diagnosis of demise and need to proceed with induction of labor. PNC significant for GBS in urine. She did not take all of antibiotics. Review of Systems Review of Systems: All systems reviewed & are unremarkable except as noted in HPI and below Constitutional: Constitutional: Reports no additional constitutional complaints and Denies headache(s) Eyes: Eyes: Denies spots in vision ENT: Reports system reviewed and no additional complaints, except as documented and Denies headache(s) Cardiovascular: Cardiovascular: Denies chest pain and Denies dyspnea Respiratory: Respiratory: Denies dyspnea Gastrointestinal: Gastrointestinal: Reports no additional gastrointestinal complaints Genitourinary: Genitourinary: Reports amenorrhea Musculoskeletal: Musculoskeletal: Reports no additional musculoskeletal complaints Integumentary/Breasts: Skin/Breast: Denies breast mass and Denies rash Neurologic: Denies headache(s) Psychiatric: Psychiatric: Reports no additional psychiatric complaints PMFSH Past Medical History Medical History Asthma LGSIL on Pap smear of cervix Miscarriage x2 Surgical History Surgical History Delivery by section x2 History of colposcopy Family History Family History Other Unknown family medical history Social History Social History Smoking status: Never smoker Second hand tobacco smoke exposure: No Alcohol intake: never Substance use: never Lack of Transportation: No Lack of Food: Never True Current Housing: I Have Housing Concerned About Future Housing: No Difficulty Paying Gas/Electric Bills: No Difficulty Paying for Meds: No Currently Unemployed: No Education: Don't Know Difficulty w/ Childcare or Family Care: No Spiritual care concerns: No Meds Home Medications and Allergies Home Medications Medication Instructions Recorded Confirmed Type docosahexaenoic acid 200 mg 200 mg PO DAILY 07/30/19 01/20/23 History capsule ( DHA) ondansetron HCl 4 mg tablet 4 mg PO Q6H PRN nausea and 02/14/23 Rx vomiting #20 tabs Allergies Allergy/AdvReac Type Severity Reaction Status Date / Time mushroom Allergy Unknown Hives Verified 02/14/23 11:04 sesame oil Allergy Unknown Hives Verified 02/14/23 11:04 sunflower oil Allergy Unknown Hives Verified 02/14/23 11:04 Vital Signs Vital Signs - 24 hr 02/26/23 22:36 02/27/23 00:20 02/27/23 00:21 Temperature 97.1 F L Pulse Rate 89 52 L Respiratory Rate 16 Blood Pressure 133/87 115/50 L Pulse Oximetry 100 100 Oxygen Delivery Room Air 02/27/23 00:31 02/27/23 00:33 02/27/23 01:01 Temperature Pulse Rate 58 L 62 Respiratory Rate Blood Pressure 119/68 127/58 L Pulse Oximetry 98 92 Oxygen Delivery 02/27/23 01:02 02/27/23 01:06 02/27/23 01:07 Temperature Pulse Rate 67 Respiratory Rate Blood Pressure 130/99 H Pulse Oximetry 96 96 Oxygen Delivery 02/27/23 01:10 02/27/23 01:12 02/27/23 01:13 Temperature Pulse Rate 78 69 Respiratory Rate Blood Pressure 111/61 110/
--- NOTE | 2023-02-27 03:13 | PM.OBPRVD ---
OB - Delivery Note Procedure Delivery date: 02/27/23 Procedure: Spontaneous vaginal delivery Route of delivery: Episiotomy description: None Specimen: Yes (placenta) Anesthesia type: Epidural Disposition: Floor Narrative: She was admitted and had epidural placed. With a few hours of arriving on L and D prior to misoprostol, she had leaking blood tinged fluid, fetus was in vagina. She was placed in lithotomy position and pushed once and delivered a nonviable male infant. No heart activity or breathing. The cord was wrapped around under the arm, around the neck and the trunk. The abdomen appeared more macerated than the rest of the fetus. The cord was cut and the placenta was palpated at the lower cervix. She pushed twice and the placenta delivered intact. The membranes appeared partially sheared. Some membranes was retrieved from the lower uterine segment and bleeding improved. Vaginal swab cultures were obtained. No lacerations. EBL 50cc. [place] Baby Date of : 02/27/23 Weeks of gestation at delivery: 19 gender: Male presentation: vertex score one minute: 0 score five minutes: 0
[2023-02-27] MEDS: OXYTOCIN 30 UNITS/NS 500 ML 30 UNITS/500 ML BAG 125 UNITS IV CONT (03:21)
[2023-02-27] MEDS: AZITHROMYCIN 500 MG/NS 250 ML 500 MG/250 ML BAG 250 MG IVPB (03:34)
[2023-02-27 03:51] LABS: Amphetamine Screen Urine Negative (Negative); Cannabinoid Screen Urine Negative (Negative); Cocaine Screen Urine Negative (Negative); Methadone Screen Urine Negative (Negative); Opiate Screen Urine Positive (Negative); Phencyclidine Screen Urine Negative (Negative)
--- NOTE | 2023-02-27 04:21 | PC.NURSE ---
This RN notified [facility] of demise at 0424.
[2023-02-27 04:28] LABS: Rubella IgG Antibody 11.1 IU/ML
[2023-02-27 07:41] LABS: Rapid Plasma Reagin Non-Reactive (NonReactive)
--- NOTE | 2023-02-27 10:05 | PC.NURSE ---
Dr. Prabhakar at the bedside. All questions answered by provider and discharge instruction given. Order received to discharge pt.
--- NOTE | 2023-02-27 10:09 | PM.OBPNVD ---
OB - PN: Subj Subjective Date/time seen: 02/27/23 10:09 Interval history: She denies cramping. She has ambulated in room. Minimal bleeding. Patient comments: no complaints OB - PN: Obj Data Labs 02/26/23 23:48 02/26/23 23:48 Labs: Laboratory Results - last 24 hr 02/26/23 02/26/23 02/27/23 23:32 23:48 00:30 WBC 13.5 H RBC 4.17 L Hgb 11.9 L Hct 35.9 L MCV 86.1 MCH 28.5 MCHC 33.1 RDW 12.9 Plt Count 253 MPV 9.0 Immature Gran % (Auto) 0.3 Neut % (Auto) 73.4 H Lymph % (Auto) 19.0 [place] % (Auto) 6.4 Eos % (Auto) 0.7 Baso % (Auto) 0.2 Lymph # (Auto) 2.57 [place] # (Auto) 0.9 H Eos # (Auto) 0.1 Baso # (Auto) 0.0 Abs Immat Gran (auto) 0.04 H Absolute Neuts (auto) 9.9 H Absolute Nucleated RBC 0.0 Nucleated RBC % 0.0 PT 13.5 INR 1.0 APTT 26.2 Sodium 136 L Potassium 3.5 Chloride 107 Carbon Dioxide 20 L Anion Gap 9 BUN 4 L Creatinine 0.40 L Estim Creat Clear Calc 195 Estimated GFR > 60 Glucose 125 H Hemoglobin A1c 5.4 Calcium 8.4 TSH 0.382 L Free T4 1.26 Beta HCG, Quant 683.61 Urine Color Dark yellow Urine Appearance Cloudy H Urine pH 5.5 Ur Specific [place] 1.020 Urine Protein Trace Urine Glucose (UA) Negative Urine Ketones 1+ H Ur Blood (Man) 3+ H Urine Nitrate Negative Urine Bilirubin Negative Urine Urobilinogen 1.0 Leukocyte Esterase Rfl 1+ H Urine RBC >100 H Urine WBC 6-10 H Ur Squamous Epith Cells None seen Urine Bacteria None seen Urine Casts 0-2 Urine Opiates Screen Positive A Urine Methadone Screen Negative Ur Barbiturates Screen Negative Ur Phencyclidine Scrn Negative Ur Amphetamine Screen Negative U Benzodiazepines Scrn Negative Urine Cocaine Screen Negative U Cannabinoids Screen Negative RPR Rubella IgG Antibody 11.1 Blood Type B Positive Antibody Screen Negative 02/27/23 00:31 WBC RBC Hgb Hct MCV MCH MCHC RDW Plt Count MPV Immature Gran % (Auto) Neut % (Auto) Lymph % (Auto) [place] % (Auto) Eos % (Auto) Baso % (Auto) Lymph # (Auto) [place] # (Auto) Eos # (Auto) Baso # (Auto) Abs Immat Gran (auto) Absolute Neuts (auto) Absolute Nucleated RBC Nucleated RBC % PT INR APTT Sodium Potassium Chloride Carbon Dioxide Anion Gap BUN Creatinine Estim Creat Clear Calc Estimated GFR Glucose Hemoglobin A1c Calcium TSH Free T4 Beta HCG, Quant Urine Color Urine Appearance Urine pH Ur Specific [place] Urine Protein Urine Glucose (UA) Urine Ketones Ur Blood (Man) Urine Nitrate Urine Bilirubin Urine Urobilinogen Leukocyte Esterase Rfl Urine RBC Urine WBC Ur Squamous Epith Cells Urine Bacteria Urine Casts Urine Opiates Screen Urine Methadone Screen Ur Barbiturates Screen Ur Phencyclidine Scrn Ur Amphetamine Screen U Benzodiazepines Scrn Urine Cocaine Screen U Cannabinoids Screen RPR Non-reactive [place]ella IgG Antibody Blood Type Antibody Screen OB - PN A/P Assessment and Plan (1) demise: Status: Acute Assessment and Plan: Doing well. Declined chromosome analysis. Discussed precautions. Follow up in 2-3 weeks. Time Spent With Patient Time: Total time spent is greater than 50% in coordination of care (as documented) at patient's floor/unit and/or counseling patient:
[2023-02-27] MEDS: POLYSACCHARIDE IRON COMPLEX 150 MG CAPSULE PO (10:24)
[2023-02-27] MEDS: MULTIVIT/MIN/PREN/FOL AC/IRON TABLET 1 TAB PO (10:25)
[2023-03-02 10:22] LABS: CMV IgM Antibody <30.00 AU/mL (<30.00)
[2023-03-02 22:50] LABS: Lupus dRVVT Screen 37 sec (<=45); PTT-LA Screen 30 sec (<=40)
[2023-03-03 11:55] LABS: CMV IgG Antibody <0.60 U/mL (<0.60)
[2023-03-03 17:06] LABS: Toxoplasma IgG Antibody <7.20 IU/mL (<7.20)
[2023-03-03 19:31] LABS: Toxoplasma IgM Antibody <8.00 AU/mL (<8.00)
[2023-03-03 22:38] LABS: Anti Cardio Antibody IgM <2.0 MPL-U/mL (<20.0); Anti Cardiolipin Antibody IgA <2.0 APL-U/mL (<20.0); Anti Cardiolipin Antibody IgG <2.0 GPL-U/mL (<20.0); PS/PT AB IgG <9 U (<=30); PS/PT AB IgM 15 U (<=30)
[2023-03-04 01:58] LABS: Anti Cardio Antibody IgM 2.1 MPL-U/mL (<20.0); Anti Cardiolipin Antibody IgA <2.0 APL-U/mL (<20.0); Anti Cardiolipin Antibody IgG <2.0 GPL-U/mL (<20.0)
--- NOTE | 2023-03-23 21:21 | PM.OBDSVD ---
DS: Admitting Diagnosis Discharge Date 02/27/23 Admitting Diagnosis demise DS: Discharge Diagnosis Discharge Diagnosis (1) demise: Status: Acute OB - DS: Summary Hospital Course Hospital Course: She was admitted from ED after being diagnosed with demise. She started going into labor in ED. She was transferred to OB floor. demise labs drawn. She had epidural. She subsequently had a vaginal delivery of a nonviable fetus. The cord was around arm, neck and upper torso at delivery. No other obvious abnormalities seen. Placenta delivered soon after and intact. She had minimal bleeding. She was doing ok the following morning. She had adequate pain control and was discharged to home. OB Procedures : Ultrasound OB Procedures Intrapartum: Spontaneous Vag Delivery OB Procedures: : None Peripartum Data Infant Delivery Method: Natural Vaginal Time Spent with Patient Time attestation: Total time spent providing and/or coordinating discharge services: DS: Data Data Completed and Pending Completed studies during hospitalization: Pending at discharge 02/27/23 05:52 Surgical [PTH] Routine Discharge Plan Discharge Attending physician on discharge: Wilner Prabhakar Consulting providers: Olga Lozada; Phil Hutchinson Discharging Clinician: Wilner Prabhakar Anticipated Discharge Date/Time: 02/27/23 10:13 Patient Disposition: Home, Self-Care Activity: may shower and pelvic rest Diet: regular Discharge Instructions: Follow-Up: Call your Provider's office for an appointment to be seen in: [facility] to [facility] for a follow-up visit: Appointment Date/Time: at What to expect at your follow-up visit: Call [phone] if you are unable to keep your appointment time. EPISIOTOMY/PERINEAL CARE: * Until bleeding stops, use your brooke bottle after urinating * Change your pad frequently throughout the day * You may take sitz baths several times a day (fill your bathtub with warm water and soak for 20 minutes.) Do NOT bathe in the water * No tub baths until seen by your physician - You may shower BLEEDING: * Each individual will experience vaginal bleeding, but it will vary with each situation and individual woman. * Vaginal bleeding will go thru cycles-from bright red, to pinkish to a white, creamy discharge. This is considered normal. You may also experience a brownish discharge which is also normal. DIET AND NUTRITION: * Eat at least 3 regular, well-balanced meals per day: include all 4 food groups daily. * You may prefer 6 small meals. * Drink 6-8 glasses of water or non-caffeinated beverages per day. * Loss of appetite is common with loss. We encourage you to try to eat; this will help with both your physical and emotional health. ACTIVITY: * Rest as much as possible during the day. * Do not exercise or lift anything heavier than 10 pounds (such as laundry or other children.) * Avoid stairs or driving as much as possible, especially if you are taking pain medication. * Do not put anything into the vagina. No douching, tampons, or sexual activity until seen and released by your physician. * Listen to your body, and do not do what is uncomfortable or painful. EMOTIONAL HEALTH: * This is a very difficult and sad time for you and your family, friends, and other children. It may be helpful to refer to the booklets on loss that you received. * It is okay to be sad and to cry. Denial, anger, and guilt are also normal stages that you and your family may go thru during this time. Each person reaches these stages at their own pace. * Keep the lines of communication open between family and friends, and ask for help if needed. NOTIFY PHYSICIAN IF YOU HAVE ANY QUESTIONS OR IF ANY OF THE FOLLOWING SYMPTOMS OCCUR: * If your episiotomy or incision becomes red, swollen, or more painful than what you have experienced in the h
== END 2023-02-27 10:46 | disposition home or self-care (01) | DRG 807 ==
LOC: ANHED 23:30 → ANHLDR 02-27 10:15
PROVIDERS: Admitting Provider Obstetrics & Gynecology; Emergency Provider Emergency Medicine; PCP Family Medicine Sports Medicine; Visit Provider Obstetrics & Gynecology
DX: O02.1 Missed abortion (principal); Z37.1 Single stillbirth; O69.81X0 Labor and delivery complicated by cord around neck, without compression, not applicable or unspecified; Z3A.18 18 weeks gestation of pregnancy
CPT/HCPCS: 36415; 80048; 80307; 81001; 83036; 84439; 84443; 84702; 85025; 85610; 85613; 85730; 86146; 86147; 86592; 86644; 86645; 86695; 86696; 86747; 86762; 86777; 86850; 86900; 86901; 87070; 87075; 87081; 87086; 87088; 87147; 87181; 87186; 87205; 88307; 99285; A9270; G0378; J0456; J1170; J2590; J2795; J3010; J7120

== ENCOUNTER 2024-01-17 08:18 | Outpatient (CLI) | payer OTHER, SELFPAY ==
--- NOTE | ~2024-01-17 | US_ITS ---
EXAMINATION: US OB <=14 wk fetus w TV DATE: 01/17/2024 08:47 INDICATION: with inconclusive viability. TECHNIQUE: Real-time transabdominal and transvaginal pelvic ultrasound was performed. COMPARISON: Ultrasound 01/13/2023 FINDINGS: TRANSABDOMINAL ULTRASOUND: The uterus measures 7.0 x 5.6 x 4.7 cm. TRANSVAGINAL ULTRASOUND: There is an intrauterine gestational sac. A yolk sac is identified. The fet al crown rump length measures 5 mm, which correlates with an estimated gestational age of 6 weeks and 2 day(s) (+/-) 4 day(s). heart motion is identified measuring 131 beats per minute (bpm) by M- mode Doppler. The right ovary measures 2.1 x 2.5 x 2.1 cm. The left ovary measures 1.4 x 1.2 x 1.7 cm . There is physiologic free fluid in the pelvis. IMPRESSION: 1. Single living intrauterine gestation with estimated date of delivery of 09/09/2024. Reviewed, dictated and finalized at location A. IMPRESSION: 1. Single living intrauterine gestation with estimated date of delivery of 08/18.
== END 2024-01-17 08:19 ==
LOC: GOSHIMG 08:21
PROVIDERS: PCP Family Medicine Sports Medicine; Visit Provider Nurse Practitioner Family
DX: O36.80X0 Pregnancy with inconclusive fetal viability, not applicable or unspecified (principal); Z3A.00 Weeks of gestation of pregnancy not specified
CPT/HCPCS: 76801; 76817

== ENCOUNTER 2024-02-14 16:14 | Outpatient (CLI) | payer OTHER, SELFPAY ==
[2024-02-14 16:36] LABS: Basophils Percent Auto 0.4 % (0.2-1.2); Eosinophils Absolute Auto 0.4 K/mm3 (0-0.3); Eosinophils Percent Auto 3.3 % (0-4.4); Hemoglobin 13.5 g/dL (12.0-15.0); Immature Granulocyte Absolute 0.03 K/mm3 (0.00-0.031); Immature Granulocyte Percent A 0.3 % (0-0.5); Lymphocytes Absolute Auto 2.21 K/mm3 (0.9-3.2); Lymphocytes Percent Auto 20.4 % (18.3-44.2); Mean Corpuscular HGB Conc 32.9 g/dl (32-36); Mean Corpuscular Hemoglobin 28.1 pg (26-34); Mean Corpuscular Volume 85.2 fl (80-100); Mean Platelet Volume 9.1 fl (7.4-10.4); Monocytes Absolute Auto 0.9 K/mm3 (0.1-0.6); Monocytes Percent Auto 7.9 % (2.6-8.5); Neutrophils Absolute Auto 7.3 K/mm3 (1.3-6.7); Neutrophils Percent Auto 67.7 % (45.5-73.1); Platelet Count Result 339 k/mm3 (150-375); Red Blood Count 4.81 M/mm3 (4.2-5.4); Red Cell Distribution Width 13.3 % (11.5-14.5); White Blood Count 10.8 K/mm3 (4.5-10.0)
[2024-02-14 17:07] LABS: Add Urine Microscopic? YES; Appearance Urine Clear (Clear); Bacteria Urine 2+ /hpf; Bilirubin Urine Negative (Negative); Blood Urine Negative (Negative); Color Urine Yellow (Yellow); Glucose Urine UA Negative (Negative); Ketones Urine Trace mg/dL (Negative); Leukocyte Esterase Ur Negative LEU/UL (Negative); Nitrate Urine Negative (Negative); Non Pathogenic Casts 0-2; Protein Urine Trace mg/dL (Negative); RBC Urine 0-2 /hpf (0-2); Specific Grav Ur 1.032 (1.001-1.035); Squamous Epithelial Cell Urine Moderate /hpf (Few)
[2024-02-14 17:36] LABS: Hemoglobin A1C 5.7 % (<5.7)
[2024-02-14 17:40] LABS: Hepatitis B Surface Antigen Negative (Negative); Rubella IgG Antibody 20.6 IU/ML
[2024-02-14 17:47] LABS: HIV 1/2 Ab P24 Ag Result Negative (Negative)
[2024-02-14 17:56] LABS: Hepatitis C Virus Antibody Negative (Negative)
[2024-02-15 10:33] LABS: Rapid Plasma Reagin Non-Reactive (NonReactive)
[2024-02-16 17:17] LABS: Hematocrit 42.3 % (35.0-45.0); Hemoglobin 13.7 g/dL (11.7-15.5); MCH 27.8 pg (27.0-33.0); MCV 85.8 fL (80.0-100.0); RDW 13.6 % (11.0-15.0); Red Blood Cell Count 4.93 Million/uL (3.80-5.10)
== END 2024-02-14 16:15 | disposition home or self-care (01) ==
LOC: ANHLAB 16:15
PROVIDERS: PCP Family Medicine Sports Medicine; Visit Provider Obstetrics & Gynecology
DX: Z34.90 Encounter for supervision of normal pregnancy, unspecified, unspecified trimester (principal)
CPT/HCPCS: 36415; 81001; 83021; 83036; 85025; 86592; 86703; 86762; 86787; 86803; 86850; 86900; 86901; 87340; G0432

== ENCOUNTER 2024-06-08 09:52 | Outpatient (CLI) | payer OTHER, SELFPAY ==
[2024-06-08 11:35] LABS: Basophils Percent Auto 0.2 % (0.2-1.2); Eosinophils Absolute Auto 0.3 K/mm3 (0-0.3); Eosinophils Percent Auto 2.9 % (0-4.4); Hemoglobin 10.5 g/dL (12.0-15.0); Immature Granulocyte Absolute 0.04 K/mm3 (0.00-0.031); Immature Granulocyte Percent A 0.4 % (0-0.5); Lymphocytes Absolute Auto 1.78 K/mm3 (0.9-3.2); Lymphocytes Percent Auto 19.5 % (18.3-44.2); Mean Corpuscular HGB Conc 30.9 g/dl (32-36); Mean Corpuscular Hemoglobin 26.7 pg (26-34); Mean Corpuscular Volume 86.5 fl (80-100); Mean Platelet Volume 8.9 fl (7.4-10.4); Monocytes Absolute Auto 0.6 K/mm3 (0.1-0.6); Monocytes Percent Auto 6.6 % (2.6-8.5); Neutrophils Absolute Auto 6.4 K/mm3 (1.3-6.7); Neutrophils Percent Auto 70.4 % (45.5-73.1); Platelet Count Result 271 k/mm3 (150-375); Red Blood Count 3.93 M/mm3 (4.2-5.4); Red Cell Distribution Width 13.6 % (11.5-14.5); White Blood Count 9.1 K/mm3 (4.5-10.0)
[2024-06-08 11:46] LABS: Glucose 1 Hour PP 50gm Dose 149 mg/dL
== END 2024-06-08 09:53 | disposition home or self-care (01) ==
LOC: ANHLAB 09:54
PROVIDERS: PCP Family Medicine Sports Medicine; Visit Provider Obstetrics & Gynecology
DX: Z34.90 Encounter for supervision of normal pregnancy, unspecified, unspecified trimester (principal)
CPT/HCPCS: 36415; 82947; 85025

== ENCOUNTER 2024-07-01 07:07 | Outpatient (CLI) | payer OTHER, SELFPAY ==
[2024-07-01 07:33] LABS: Glucose Fasting Gestational 89 mg/dL (>/=95)
[2024-07-01 09:13] LABS: Glucose 1 Hour Gest 136 mg/dL (>/=180)
[2024-07-01 10:05] LABS: Glucose 2 Hour Gest 80 mg/dL (>/= 155)
[2024-07-01 10:59] LABS: Glucose 3 Hour Gest 107 mg/dL (>/=140)
--- OUTSIDE RECORDS SUMMARY | 2024-07-06 15:53 | XMS_ITS | Clinical Summary ---
Author Organization [address] - [address] [address] Phone Care Team Providers Care Ramp Jockey Name Role Phone Nando Briscoe MD Primary Care Provider [phone] Allergies No known active allergies Medications No known medications Active Problems Problem Noted Date Diagnosed Date hydronephrosis duri ng in third trimester, antepartum 10/24/2016 Encounters Date Type Department Care Team Description 06/17/2024 9:13 AM INSPECTOR [employer] - 06/17/2024 11:59 PM INSPECTOR FINAL [employer] Hospital Encounter [facility] Elian Sharma [address] [place] [phone] Davian Gonzalez MD Discharge Disposition: Home or Self Care 04/22/2024 9:13 AM CDT - 04/22/2024 11:59 PM CDT Hospital Encounter [facility] Elian Sharma [address] [place] [phone] Ashlee Richter MD Discharge Disposition: Home or Self Care 04/09/2024 External Device Data STL ABSTRACTION Provider, Abstract from Last 3 Months Social History Tobacco Use Types Packs/Day Years Used Date Smoking Tobacco: Never Assessed Sex and Gender Information Value Date Recorded Sex Assigned at Not on file Gender Identity Not on file Sexual Orientation Not on file Last Filed Vital Signs Vital Sign Reading Time Taken Comments Blood Pressure 120/70 10/24/2016 3:48 PM CDT Pulse - - Temperature 36.2 ??C (97.2 ??F) 10/24/2016 3:48 PM CD T Respiratory Rate - - Oxygen Saturation - - Inhaled Oxygen Concentration - - Weight 99.8 kg (220 lb) 10/24/2016 3:48 PM CDT Height 160 cm (5' 3 ) 10/24/2016 3:48 PM CDT Body Mass Index 38.97 10/24/2016 3:48 PM CDT Plan of Treatment Upcoming Encounters Date Type Department Care Team (Late st Contact Info) Description 07/15/2024 1:00 PM INSPECTOR FINAL [employer] Appointment [facility] [address] El[address] Sharma [address] [place] [address] Davian Gonzalez MD [address] [facility] [address] [place] [address] Health Maintenance Due Date Last Done Comments DTAP/TDAP/TD VACCINES (1 - Tdap) 2009 HEPATITIS B VACCINES (1 of 3 - 19+ 3-dose series) 2009 CERVICAL CANCER SCREENING 2020 INFLUENZA VACCINE (#1) 2024 HPV VACCINES Aged Out No longer eligi ble based on patient's age to complete this topic PNEUMOCOCCAL VACCINE 0-64 YEARS Aged Out No longer eligible based on patient's age to complete this topic Procedures Procedure Name Priority Date/Time Associated Diagnosis Comments US OB FOLLOW UP PER FETUS Routine 06/17/2024 9:42 AM INSPECTOR FIN[employer] Obesity affecting in third trimester, unspecified obesity type History of US OB DETAIL SINGLE GEST Routine 04/22/2024 10:05 AM CDT Encounter for routine screening for malformation using ultrasound from Last 3 Months Results * US OB FOLLOW UP PER FETUS (06/17/2024 9:42 AM INSPECTOR FINAL ASSEM[employer]LECTRICAL) Anatomical Region Laterality Modality Pelvis Ultrasound 06/17/2024 9:25 AM INSPECTOR FINAL [employer] Narrative 06/17/2024 9:47 AM INSPECTOR FINAL ASSEMBLY [employer]LECTRICAL STL FOLLOW UP ----- Pat. Name: YANA ALLAN Study Date: 06/17/2024 9:25am Pat. NO: [id number] Referring ??MD: ASHLEE RICHTER MD Site: [employer] Manager: Sherry Pak RDMS : 1990 Age: 33 ----- INDICATION ----- Screening Follow-Up Previous Miscarriage ? loss @ 18 weeks G3 Maternal Obesity (BMI>40) Complicating Maternal Care for Low Transverse Scar from ? x 2 Previous Delivery (Previous ) CODING ----- Diagnoses ? Z3A.28: Weeks of gestation ?O34.211: Maternal care for low transverse scar from previous delivery ?O99.213: Obesity complicating ?O09.293: Supervision of with other poor reproductive or obstetric history ?Z3A.28: Weeks of gestation ?O99.213: Obesity complicating ?O09.293: Supervision of with other poor reproductive or obstetric history ?Z36.3: Encounter for screening for malformations ?Z3A.28: Weeks of gestation ?O99.213: Obesity complicating ?O09.293: Supervision of with other poor reproductive or obstetric history ?Z36.2: Encounter for other screening follow-up Procedures ?11973: Ultrasound, uterus, real time with image documentation, follow up, transabdominal ?approach per fetus HISTORY ----- OB History ? 4. Para 2 ?Hu children born living (T) 2. Miscarriages 1 ?T2A1L2 MATERNAL ASSESSMENT ----- Physical Exam ? Weight 118 kg. Initial weight 109 kg, 240 lb. BMI 46.07 kg/m??. Initial BMI 42.53 kg/m??. Weight gain 9 kg, ?20 lb METHOD ----- Transabdominal ultrasound examination ----- Hu . Number of fetuses: 1 DATING ----- GA by prior assessment 28 w + 3 d JAMARCUS by prior assessment: 09/06/2024 Ultrasound examination on: 06/17/2024 GA by U/S based upon: AC, BPD, EFW, Femur, HC GA by U/S 28 w + 4 d JAMARCUS by U/S: 09/05/2024 Method of dating: Restore dating from previous exam Assigned: based on stated JAMARCUS, selected on 03/28/2024 Assigned GA 28 w + 3 d Assigned JAMARCUS: 09/06/2024 BIOMETRY ----- BPD ?73.4 ? mm ?29w 3d ?71% ?Hadlock OFD ?96.9 ? mm ?31w 2d ?98% ?Valorie HC ? 271.9 ?mm ?29w 5d ?57% ?Hadlock AC ? 239.2 ?mm ?28w 1d ?36% ?Hadlock Femur ?51.7 ? mm ?27w 4d ?15% ?Hadlock HC / AC ?1.14 ? 76% ?Nicolaides Weight Calculation: EFW ? 1,194 ? g ? 27w 6d ?30% ?Hadlock EFW (lb,oz) ? 2 lb 10 ? oz EFW by ?Hadlock ([id number]) Extremities / Bony Struc Biometry: FL / BPD ?0.70 FL / HC ? 0.19 FL / AC ? 0.22 GENERAL EVALUATION ----- Cardiac activity present. FHR 126 bpm. movements: present. Presentation: cephalic Placenta: Placental site: anterior Umbilical cord: Cord vessels: 3 vessel cord Amniotic fluid: Amount of AF: normal amount. MVP 5.0 cm. MARGOT 16.8 cm. Q1 4.2 cm, Q2 3.3 cm, Q3 4.3 cm, Q4 5.0 cm ANATOMY ----- The following structures appear normal: Head / Neck ? Cranium. Lateral ventricles. Choroid plexus. Midline falx. Cavum septi pellucidi. Cerebellum. Cisterna ?magna. Face ?Profile. Heart / Thorax ?4-chamber view. RVOT view. LVOT view. 3-vessel view. ?Diaphragm. Abdomen ? Stomach. Kidneys. Bladder. GROWTH OVERVIEW ----- Exam date ?GA ?BPD (mm) ? HC (mm) ?AC (mm) ? FL (mm) ?HL (mm) ?EFW (g) 04/22/2024 ?20w 3d ?47.8 ?51% ?175.1 ? 24% ?153.6 ?48% ?33.4 ?43% ?31.7 ?57% ?356 ?47% 06/17/2024 ?28w 3d ?73.4 ?71% ?271.9 ? 57% ?239.2 ?36% ?51.7 ?15% ? 1,194 ? 30% COMMENT ----- Patient's name and date of were verified by the farmworker fry[employer] farm prior to the exam IMPRESSION ----- Hu @ 28w 3d complicated by BMI and prior deliveries. - The biometry is consistent with dates with the EFW at the 30% percentile. - Amniotic fluid indices are within normal limits. - Limited anatomy is unremarkable. - The placenta is anterior and without evidence of placenta accreta spectrum, though color Doppler imaging was not performed. A follow up is scheduled in 4 weeks to follow growth and to reassess the placenta. Thank you for allowing us to participate in the care of this patient. Procedure Note Saray You MD - 06/17/2024 STL FOLLOW UP ----- Pat. Name:Jose Luis ALLAN Date:06/17/2024 9:25am Pat. NO: [id number] MD:ASHLEE RICHTER MD [facility] RDMS :1990Age:33 ----- INDICATION ----- Screening Follow-Up Previous Miscarriage loss @ 18 weeks G3 Maternal Obesity (BMI>40) Complicating Maternal Care for Low Transverse Scar from x 2 Previous Delivery (Previous ) CODING ----- Diagnoses Z3A.28: Weeks of gestation O34.211: Maternal care for low transverse scarfrom previous delivery O99.213: Obesity complicating O09.293: Supervision of with other poorreproductive or obstetric history Z3A.28: Weeks of gestation O99.213: Obesity complicating O09.293: Supervision of with other poorreproductive or obstetric history Z36.3: Encounter for screening formalformations Z3A.28: Weeks of gestation O99.213: Obesity complicating O09.293: Supervision of with other poorreproductive or obstetric history Z36.2: Encounter for other screeningfollow-up Procedures 42860: Ultrasound, uterus, real time withimage documentation, follow up, transabdominal approach per fetus HISTORY ----- OB History 4. Para 2 Hu children born living (T) 2. Miscarriages1 T2A1L2 MATERNAL ASSESSMENT ----- Physical Exam Weight 118 kg. Initial weight 109 kg, 240 lb. BMI46.07 kg/m??. Initial BMI 42.53 kg/m??. Weight gain 9 kg, 20 lb METHOD ----- Transabdominal ultrasound examination ----- Hu . Number of fetuses: 1 DATING ----- GA by prior [id number] w + 3 d JAMARCUS by prior assessment:09/06/2024 Ultrasound examination on:06/17/2024 GA by U/S based upon:AC, BPD, EFW, Femur, HC GA by U/S28 w + 4 d JAMARCUS by U/S:09/05/2024 Method of dating:Restore dating from previous exam Assigned:based on stated JAMARCUS, selected on 03/28/2024 Assigned GA28 w + 3 d Assigned JAMARCUS:09/06/2024 BIOMETRY ----- BPD 73.4 mm 29w 3d 71%Hadlock OFD 96.9 mm 31w 2d 98%Valorie HC 271.9 mm 29w 5d 57%Hadlock AC 239.2 mm 28w 1d 36%Hadlock Femur 51.7 mm 27w 4d 15%Hadlock HC / AC 1.14 76%Nicolaides Weight Calculation: EFW 1,194 g 27w 6d30% Hadlock EFW (lb,oz) 2 lb 10 oz EFW by Hadlock ([id number]) Extremities / Bony Struc Biometry: FL / BPD 0.70 FL / HC 0.19 FL / AC 0.22 GENERAL EVALUATION ----- Cardiac activity present. FHR 126 bpm. movements: present.Presentation: cephalic Placenta: Placental site: anterior Umbilical cord: Cord vessels: 3 vessel cord Amniotic fluid: Amount of AF: normal amount. MVP 5.0 cm. MARGOT 16.8 cm. Q14.2 cm, Q2 3.3 cm, Q3 4.3 cm, Q4 5.0 cm ANATOMY ----- The following structures appear normal: Head / Neck Cranium. Lateral ventricles. Choroid plexus.Midline falx. Cavum septi pellucidi. Cerebellum. Cisterna magna. Face Profile. Heart / Thorax 4-chamber view. RVOT view. LVOT view. 3-vesselview. Diaphragm. Abdomen Stomach. Kidneys. Bladder. GROWTH OVERVIEW ----- Exam date GA BPD (mm) HC (mm) AC (mm) FL(mm) HL (mm) EFW (g) 04/22/2024 20w 3d 47.8 51% 175.1 24% 153.6 48%33.4 43% 31.7 57% 356 47% 06/17/2024 28w 3d 73.4 71% 271.9 57% 239.2 36%51.7 15% 1,194 30% COMMENT ----- Patient's name and date of were verified by the farmworker fryer farm prior tothe exam IMPRESSION ----- Hu @ 28w 3d complicated by BMI and prior cesareandeliveries. - The biometry is consistent with dates with the EFW at the 30%percentile. - Amniotic fluid indices are within normal limits. - Limited anatomy is unremarkable. - The placenta is anterior and without evidence of placenta accretaspectrum, though color Doppler imaging was not performed. A follow up is scheduled in 4 weeks to follow growth and to reassessthe placenta. Thank you for allowing us to participate in the care of this patient. Davian Gonazlez MD US ORDERABLES * US OB DETAIL SINGLE GEST (04/22/2024 10:05 AM CDT) Anatomical Region Laterality Modality Pelvis Ultrasound 04/22/2024 9:22 AM CDT Narrative 04/22/2024 10:20 AM CDT STL COMP ----- Pat. Name: YANA ALLAN Study Date: 04/22/2024 9:22am Pat. NO: [id number] Referring ??MD: ASHLEE RICHTER MD Site: [employer] Manager: Sherry Pak RDMS : 1990 Age: 33 ----- INDICATION ----- Anatomy Survey Previous Miscarriage ? loss @ 18 weeks G3 Maternal Obesity (BMI>40) Complicating Maternal Care for Low Transverse Scar from ? x 2 Previous Delivery (Previous ) CODING ----- Diagnoses ? Z3A.20: Weeks of gestation ?O34.211: Maternal care for low transverse scar from previous delivery ?O99.212: Obesity complicating ?O09.292: Supervision of with other poor reproductive or obstetric history ?Z3A.20: Weeks of gestation ?O99.212: Obesity complicating ?O09.292: Supervision of with other poor reproductive or obstetric history ?Z36.3: Encounter for screening for malformations Procedures ?05343: Ultrasound, uterus, real time with image documentation, and maternal evaluation ?plus detailed anatomic examination, transabdominal approach HISTORY ----- OB History ? 4. Para 2 ?Hu children born living (T) 2. Miscarriages 1 ?T2A1L2 MATERNAL ASSESSMENT ----- Physical Exam ? Weight 109 kg. BMI 42.53 kg/m?? METHOD ----- Transabdominal ultrasound examination ----- Hu . Number of fetuses: 1 DATING ----- GA by prior assessment 20 w + 3 d JAMARCUS by prior assessment: 09/06/2024 Ultrasound examination on: 04/22/2024 GA by U/S based upon: AC, BPD, EFW, Femur, HC GA by U/S 20 w + 3 d JAMARCUS by U/S: 09/06/2024 Method of dating: Restore dating from previous exam Assigned: based on stated JAMARCUS, selected on 03/28/2024 Assigned GA 20 w + 3 d Assigned JAMARCUS: 09/06/2024 BIOMETRY ----- BPD ?47.8 ? mm ? 20w 3d ? 51% ?Hadlock OFD ?61.8 ? mm ? 21w 1d ? 77% ?Valorie HC ? 175.1 ?mm ? 20w 0d ? 24% ?Hadlock Cerebellum tr ?20.4 ? mm ? 20w 1d ? 40% ?Palacio Nuchal fold ?5.0 ?mm AC ? 153.6 ?mm ? 20w 4d ? 48% ?Hadlock Femur ?33.4 ? mm ? 20w 3d ? 43% ?Hadlock Humerus ?31.7 ? mm ? 20w 4d ? 57% ?Valorie HC / AC ?1.14 ?31% ? Nicolaides Weight Calculation: EFW ?356 ? g ?20w 3d ?47% ?Hadlock EFW (lb,oz) ?0 lb 13 ? oz EFW by ?Hadlock ([id number]) Head / Face / Neck Biometry: Demographer ? 6.2 ? mm CM ? 5.4 ? mm ? 60% ?Nicolaides Outer IOD ? 31.4 ?mm ? 20w 2d ?21% ?Valorie Extremities / Bony Struc Biometry: FL / BPD ? 0.70 ?39% ?Hadlock FL / HC ?0.19 ?55% ?Hadlock FL / AC ?0.22 ?43% ?Hadlock GENERAL EVALUATION ----- Cardiac activity present. FHR 141 bpm. movements: present. Presentation: cephalic Placenta: Placental site: anterior Umbilical cord: Cord vessels: 3 vessel cord Amniotic fluid: Amount of AF: normal amount. MVP 5.8 cm ANATOMY ----- The following structures appear normal: Head / Neck ? Cranium. Lateral ventricles. Choroid plexus. Midline falx. Cavum septi pellucidi. Cerebellum. Cisterna ?magna. Thalami. ?Nuchal fold. Face ?Lips. Profile. Nose. Palate. Orbits. Heart / Thorax ?4-chamber view. RVOT view. LVOT view. 3-vessel view. 1-pyimrc-xgeasdx view. Situs. Aortic arch view. ?Ductal arch view. Superior vena cava. Inferior vena cava. High short axis view. Cardiac rhythm. ?Diaphragm. Abdomen ? Abdominal wall. Stomach. Kidneys. Bladder. Spine ? Cervical spine. Thoracic spine. Lumbar spine. Sacral spine. Extremities / ? Arms. Right hand. Left hand. Legs. Right foot. Left foot. Skeleton MATERNAL STRUCTURES ----- Cervix ?Visualized ?Approach - Transabdominal: Cervical length 39.1 mm Right Ovary ? Normal ?Size 21 mm x 23 mm x 20 mm. Vol 4.8 cm?Cyst(s) Size 14 mm x 15 mm x 19 mm. Mean 16.0 mm. Vol 2.089 cm?? Left Ovary ?Suboptimal GROWTH OVERVIEW ----- Exam date ?GA ?BPD (mm) ? HC (mm) ?AC (mm) ? FL (mm) ?HL (mm) ?EFW (g) 04/22/2024 ?20w 3d ?47.8 ?51% ?175.1 ? 24% ?153.6 ?48% ?33.4 ?43% ?31.7 ?57% ?356 ?47% COMMENT ----- Patient's name and date of were verified by the farmworker [employer] before the exam IMPRESSION ----- Viable at 20 weeks gestation complicated by maternal obesity and previous x 2 The biometry is consistent with the established gestational age No structural malformations or markers of aneuploidy were identified Amniotic fluid volume is normal Anterior placenta with normal placental cord insertion appreciated; placenta is not low-lying and there are no ultrasound findings to suggest the presence of a placenta accreta spectrum disorder Normal cervical length based upon transabdominal ultrasound assessment Ultrasound cannot identify all structural malformations nor exclude a diagnosis of aneuploidy Recommendations: -Recommend a follow-up ultrasound at 28 weeks gestation to assess growth and development. Follow-up ultrasound was scheduled at 28 weeks gestation -Recommend serial growth ultrasounds in the third trimester -Recommend twice-weekly modified biophysical profile starting at 36 weeks gestation Procedure Note Davian Gonzalez MD - 04/22/2024 STL COMP ----- Pat. Name:Jose Luis ALLAN Date:04/22/2024 9:22am Pat. NO: [id number] MD:ASHLEE RICHTER MD [facility]herry Pak RDMS :1990Age:33 ----- INDICATION ----- Anatomy Survey Previous Miscarriage loss @ 18 weeks G3 Maternal Obesity (BMI>40) Complicating Maternal Care for Low Transverse Scar from x 2 Previous Delivery (Previous ) CODING ----- Diagnoses Z3A.20: Weeks of gestation O34.211: Maternal care for low transverse scarfrom previous delivery O99.212: Obesity complicating O09.292: Supervision of with other poorreproductive or obstetric history Z3A.20: Weeks of gestation O99.212: Obesity complicating O09.292: Supervision of with other poorreproductive or obstetric history Z36.3: [facility] Procedures 20994: Ultrasound, uterus, real time withimage documentation, and maternal evaluation plus detailed anatomic examination,transabdominal approach HISTORY ----- OB History 4. Para 2 Hu children born living (T) 2. Miscarriages1 T2A1L2 MATERNAL ASSESSMENT ----- Physical Exam Weight 109 kg. BMI 42.53 kg/m?? METHOD ----- Transabdominal ultrasound examination ----- Hu . Number of fetuses: 1 DATING ----- GA by prior [id number] w + 3 d JAMARCUS by prior assessment:09/06/2024 Ultrasound examination on:04/22/2024 GA by U/S based upon:AC, BPD, EFW, Femur, HC GA by U/S20 w + 3 d JAMARCUS by U/S:09/06/2024 Method of dating:Restore dating from previous exam Assigned:based on stated JAMARCUS, selected on 03/28/2024 Assigned GA20 w + 3 d Assigned JAMARCUS:09/06/2024 BIOMETRY ----- BPD 47.8 mm 20w 3d51% Hadlock OFD 61.8 mm 21w 1d77% Valorie HC 175.1 mm 20w 0d24% Hadlock Cerebellum tr 20.4 mm 20w 1d40% Palacio Nuchal fold 5.0 mm AC 153.6 mm 20w 4d48% Hadlock Femur 33.4 mm 20w 3d43% Hadlock Humerus 31.7 mm 20w 4d57% Valorie HC / AC 1.14 31%Dwayne Weight Calculation: EFW 356 g 20w 3d 47%Hadlock EFW (lb,oz) 0 lb 13 oz EFW by Hadlock ([id number]) Head / Face / Neck Biometry: Demographer 6.2 mm CM 5.4 mm 60%Nicolaides Outer IOD 31.4 mm 20w 2d 21%Valorie Extremities / Bony Struc Biometry: FL / BPD 0.70 39%Hadlock FL / HC 0.19 55%Hadlock FL / AC 0.22 43%Hadlock GENERAL EVALUATION ----- Cardiac activity present. FHR 141 bpm. movements: present.Presentation: cephalic Placenta: Placental site: anterior Umbilical cord: Cord vessels: 3 vessel cord Amniotic fluid: Amount of AF: normal amount. MVP 5.8 cm ANATOMY ----- The following structures appear normal: Head / Neck Cranium. Lateral ventricles. Choroid plexus.Midline falx. Cavum septi pellucidi. Cerebellum. Cisterna magna. Thalami. Nuchal fold. Face Lips. Profile. Nose. Palate. Orbits. Heart / Thorax 4-chamber view. RVOT view. LVOT view. 3-vesselview. 5-owmcaa-stssqtx view. Situs. Aortic arch view. Ductal arch view. Superior vena cava. Inferiorvena cava. High short axis view. Cardiac rhythm. Diaphragm. Abdomen Abdominal wall. Stomach. Kidneys. Bladder. Spine Cervical spine. Thoracic spine. Lumbar spine.Sacral spine. Extremities / Arms. Right hand. Left hand. Legs. Right foot.Left foot. Skeleton MATERNAL STRUCTURES ----- Cervix Visualized Approach - Transabdominal: Cervical length 39.1mm Right Ovary Normal Size 21 mm x 23 mm x 20 mm. Vol 4.8 cm?? Cyst(s) Size 14 mm x 15 mm x 19 mm. Mean 16.0 mm.Vol 2.089 cm?? Left Ovary Suboptimal GROWTH OVERVIEW ----- Exam date GA BPD (mm) HC (mm) AC (mm) FL(mm) HL (mm) EFW (g) 04/22/2024 20w 3d 47.8 51% 175.1 24% 153.6 48%33.4 43% 31.7 57% 356 47% COMMENT ----- Patient's name and date of were verified by the farmworker fryer farm beforethe exam IMPRESSION ----- Viable at 20 weeks gestation complicated by maternal obesity andprevious x 2 The biometry is consistent with the established gestational age No structural malformations or markers of aneuploidy wereidentified Amniotic fluid volume is normal Anterior placenta with normal placental cord insertion appreciated;placenta is not low-lying and there are no ultrasound findings to suggest the presence of a placenta accreta spectrum disorder Normal cervical length based upon transabdominal ultrasound assessment Ultrasound cannot identify all structural malformations nor exclude adiagnosis of aneuploidy Recommendations: -Recommend a follow-up ultrasound at 28 weeks gestation to assess fetalgrowth and development. Follow-up ultrasound was scheduled at 28 weeks gestation -Recommend serial growth ultrasounds in the third trimester -Recommend twice-weekly modified biophysical profile starting at 36 weeksgestation Ashlee Richter MD ORDERABLES from Last 3 Months Care Teams Ramp Jockey Relationship Specialty Start Date End Date Nando Briscoe MD [address] [place] [phone] PCP - General Family Practice 04/26/16
--- OUTSIDE RECORDS SUMMARY | 2024-07-06 15:53 | XMS_ITS | Encounter Summary ---
Author Organization [facility] Address [address] [place] [address] Care Team Providers Care Mill Beam Fitter Name Role Phone Nando Briscoe MD Primary Care Provider [phone] Reason for Referral * Radiology Services (Routine) - Closed Specialty Diagnoses / Procedures Referred By Contac t Referred To Contact Diagnoses Obesity affecting in third trimester, unspecified obesity type History of Procedures US OB FOLLOW UP PER FETUS Davian Gonzalez MD [address] [address] [facility] Maternal And [facility] Elian Sharma [address] [place] [phone] Referral ID Status Reason Start Date Expiration Date Visits Re quested Visits Authorized [id number] Closed 04/22/2024 05/23/2025 1 1 MINOUS PAVING MACHINE OPERATOR Reason for Visit * Radiology Services (Routine) - Closed Specialty Diagnoses / Procedures Referred By Contac t Referred To Contact Diagnoses Obesity affecting in third trimester, unspecified obesity type History of Procedures US OB FOLLOW UP PER FETUS Davian Gonzalez MD [address], [place] [address] [facility] Maternal And [facility] [place] Elian Sharma [address] [place] [phone] Referral ID Status Reason Start Date Expiration Date Visits Re quested Visits Authorized [id number] Closed 04/22/2024 05/23/2025 1 1 Encounter Details Date Type Department Care Team (Latest Contact Info) Description 06/17/2024 9:13 AM BITUMINOUS PAVING MACHINE OPERATOR - 06/17/2024 11:59 PM BITUMINOUS PAVING MACHINE OPERATOR Hospital Encounter [facility] [address] [place] [phone] Davian Gonzalez MD [address] [address] Discharge Disposition: Home or Self Care Social History Tobacco Use Types Packs/Day Years Used Date Smoking Tobacco: Never Assessed Sex and Gender Information Value Date Recorded Sex Assigned at Not on file Gender Identity Not on file Sexual Orientation Not on file documented as of this encounter Plan of Treatment Upcoming Encounters Date Type Department Care Team (Late st Contact Info) Description 07/15/2024 1:00 PM BITUMINOUS PAVING MACHINE OPERATOR Appointment [facility] [address] [place] [phone] Davian Gonzalez MD [address] [place] [address] documented as of this encounter Procedures Procedure Name Priority Date/Time Associated Diagnosis Comments US OB FOLLOW UP PER FETUS Routine 06/17/2024 9:42 AM BITUMINOUS PAVING MACHINE OPERATOR Obesity affecting in third trimester, unspecified obesity type History of documented in this encounter Results * US OB FOLLOW UP PER FETUS (06/17/2024 9:42 AM BITUMINOUS PAVING MACHINE OPERATOR) Anatomical Region Laterality Modality Pelvis Ultrasound 06/17/2024 9:25 AM BITUMINOUS PAVING MACHINE OPERATOR Narrative 06/17/2024 9:47 AM BITUMINOUS PAVING MACHINE OPERATOR STL FOLLOW UP ----- Pat. Name: YANA ALLAN Study Date: 06/17/2024 9:25am Pat. NO: [id number] Referring ??MD: ASHLEE RICHTER MD Site: [place] Boot Repairer: Sherry Pak RDMS : 1990 Age: 33 [...] ?Z36.2: Encounter for other screening follow-up Procedures ?19443: Ultrasound, uterus, real time with image documentation, [...] lb 10 ? oz EFW by ?Hadlock ([id number]) Extremities / Bony Struc Biometry: FL / [...] ? 57% ?239.2 ?36% ?51.7 ?15% ? 194 ? 30% COMMENT ----- Patient's name and date of were verified by the ring facer prior to the exam IMPRESSION ----- Hu [...] Name:Jose Luis ALLAN Date:06/17/2024 9:25am Pat. NO: [id number] MD:ASHLEE RICHTER MD [facility]Sherry Pak RDMS :1990Age:33 ----- INDICATION ----- Screening [...] history Z36.2: Encounter for other screeningfollow-up Procedures 71587: Ultrasound, uterus, real time withimage documentation, follow [...] fetuses: 1 DATING ----- GA by prior [email or web address] w + 3 d JAMARCUS by prior assessment:09/06/2024 Ultrasound examination on:06/17/2024 GA by U/S based upon:AC, BPD, EFW, Femur, HC GA by U/S28 w + 4 d JAMARCUS by U/S:09/05/2024 Method of dating:Restore dating from previous exam Assigned:based on stated JAMARCUS, selected on 03/28/2024 Assigned GA28 w + 3 d Assigned JAMARUCS:09/06/2024 BIOMETRY ----- BPD 73.4 mm 29w 3d 71%Hadlock OFD 96.9 mm 31w 2d 98%Valorie HC 271.9 mm 29w 5d 57%Hadlock AC 239.2 mm 28w 1d 36%Hadlock Femur 51.7 mm 27w 4d 15%Hadlock HC / AC 1.14 76%Nicolaides Weight Calculation: EFW 1,194 g 27w 6d30% Hadlock EFW (lb,oz) 2 lb 10 oz EFW by Hadlock ([id number]) Extremities / Bony Struc Biometry: FL / [...] and date of were verified by the ring facer prior tothe exam IMPRESSION ----- Hu @ [...] in the care of this patient. Davian Gonzalez MD ORDERABLES documented in this encounter Visit Diagnoses Diagnosis Obesity affecting in third trimester, unspecified obesity type History of Other postprocedural status documented in this encounter Care Teams Mill Beam Fitter Relationship Specialty Start Date End Date Nando Briscoe MD [address] [place] [address] PCP - General Family Practice 04/26/16 documented as of this encounter
--- OUTSIDE RECORDS SUMMARY | 2024-07-06 15:54 | XMS_ITS | Encounter Summary ---
Author Organization [facility] Address [address] [place] [address] Care Team Providers Care Pharmaceutical Sales Name Role Phone Nando Briscoe MD Primary Care Provider [phone] Reason for Referral * Outpatient Services (Routine) - Closed Specialty Diagnoses / Procedures Referred By Contac t Referred To Contact Diagnoses Maternal obesity affecting , antepartum Suspected damage to fetus from other disease in mother, affecting management of mother, antepartum condition or complication, not applicable or unspecified fetus Procedures US OB FOLLOW UP PER FETUS Davian Gonzalez MD [address] [address] Referral ID Status Reason Start Date Expiration Date Visits Re quested Visits Authorized [id number] Closed 09/22/2016 10/23/2017 1 1 Reason for Visit * Auth/Cert Specialty Diagnoses / Procedures Referred By Contac t Referred To Contact Radiology [facility] Maternal And [facility] [address] [place] [address] Referral ID Status Reason Start Date Expiration Date Visits Re quested Visits Authorized [id number] 1 1 Encounter Details Date Type Department Care Team (Latest Contact Info) Description 11/03/2016 3:30 PM CDT - 11/03/2016 11:59 PM CDT Hospital Encounter [facility] and [facility] [address] [place] [address] Davian Gonzalez MD [address] [place] [address] Discharge Disposition: Home or Self Care Social History Tobacco Use Types Packs/Day Years Used Date Smoking Tobacco: Never Assessed Comments Yes Sex and Gender Information Value Date Recorded Sex Assigned at Not on file Gender Identity Not on file Sexual Orientation Not on file documented as of this encounter Plan of Treatment Upcoming Encounters Date Type Department Care Team (Late st Contact Info) Description 07/15/2024 1:00 PM HOUSE PRINCIPAL Appointment [facility] Maternal and [facility] [address] [place] [phone] Davian Gonzalez MD [address] [place] [address] documented as of this encounter Procedures Procedure Name Priority Date/Time Associated Diagnosis Comments US OB FOLLOW UP PER FETUS Routine 11/03/2016 4:22 PM CDT Maternal obesity affecting , antepartum Suspected damage to fetus from other disease in mother, affecting management of mother, antepartum condition or complication, not applicable or unspecified fetus documented in this encounter Results * US OB FOLLOW UP PER FETUS (11/03/2016 4:22 PM CDT) Anatomical Region Laterality Modality Pelvis Ultrasound 11/03/2016 3:45 PM CDT Impressions 11/03/2016 4:15 PM CDT IMPRESSION ----- Interval growth is appropriate. There is stable bilateral pyelectasis noted. The right renal pelvis measures 9.3mm carmine left renal pelvis measures 7.7 mm. There is a grade 2 hydronephrosis of the right kidney which is stable. The left kidney is suboptimally imaged but appears consistent with a grade 1 hydronephrosis. There is renal parenchyma noted, the bladder is normal in appearance. There is no evidence of hydroureter. Normal fluid and placentation. Narrative 11/03/2016 4:15 PM CDT Follow Up Basic ----- Pat. Name: YANA ALLAN Study Date: 11/03/2016 3:45pm Pat. NO: [id number] Referring ??MD: ASHLEE RICHTER MD Site: [place] Sub Prior: Carolina Jimenes RDMS : 1990 Age: 26 ----- INDICATION ----- Pyelectasis Maternal Obesity (bmi>30 but bmi<40) CODING ----- Procedures ?72395: OB follow-up/Target per fetus. HISTORY ----- OB History ?: 1. MATERNAL ASSESSMENT ----- Physical Exam ? Weight 100 kg. BMI 38.98 kg/m?. METHOD ----- Transabdominal ultrasound examination. ----- Hu . Number of fetuses: 1. DATING ----- LMP on: 03/04/2016 Cycle: regular cycle GA by LMP 34 w + 6 d JAMARCUS by LMP: 12/09/2016 Ultrasound examination on: 11/03/2016 GA by U/S based upon: AC, BPD, EFW, Femur, HC GA by U/S 35 w + 2 d JAMARCUS by U/S: 12/06/2016 Assigned: Dating performed on 04/28/2016, based on the LMP Assigned GA 34 w + 6 d Assigned JAMARCUS: 12/09/2016 BIOMETRY ----- Main Biometry: BPD ?82.6 ? mm ?11% ? 33w 2d ? Hadlock HC ? 325.1 ?mm ?66% ? 36w 6d ? Hadlock AC ? 322.7 ?mm ?88% ? 36w 1d ? Hadlock Femur ?67.2 ? mm ?34% ? 34w 4d ? Hadlock Weight Calculation: EFW ?2,696 ?g ? 65% ? 35w 3d ? Hadlock EFW (lb,oz) ?5 lb ? oz ? 15 Calculated by ?Hadlock ([id number]) Proportionality Ratios: HC / AC ?1.01 ? 34% ?Nicolaides FL / BPD ? 0.81 ? FL / AC ?0.21 ? GENERAL EVALUATION ----- Cardiac activity: present. FHR 138 bpm. movements: visualized. Presentation: breech. Placenta: Placental site: posterior. Umbilical cord: Cord vessels: 3 vessel cord. Amniotic fluid: MARGOT 10.8 cm. Q1 2.3 cm, Q2 3.0 cm, Q3 5.5 cm. ANATOMY ----- The following structures were visualized with normal appearance: Head: Head shape and size appear normal. Brain: Lateral cerebral ventricles, midline falx and cavum septi pellucidi appear normal. Thorax: No thoracic abnormalities detected. Heart: Cardiac rhythm appears normal. Stomach: Stomach size and situs appear normal. Bladder: size and shape. The following structures were abnormal: Kidneys ? Right kidney: Hydronephrosis of the right kidney; Rt renal pelvis 9.3 mm. Left kidney: Pyelectasis of the ?left kidney 7.7 mm. The following structures were visualized: Upper extremities. Lower extremities. Other findings: Face ?previously seen. Spine ? previously seen. Heart ? Four chamber view: previously seen. Abdominal wall ?previously seen. FOLLOW-UP ----- follow-up is recommended, the patient has previously met with Dr. Goldberg and is planning for followup. Procedure Note Lorraine Quintero DO - 11/03/2016 Follow Up Basic ----- Pat. Name:Jose Luis ALLAN Date:11/03/2016 3:45pm Pat. NO: [id number] :ASHLEE RICHTER MD [facility]Carolinadandre Jimenes RDMS :1990Age:26 ----- INDICATION ----- Pyelectasis Maternal Obesity (bmi>30 but bmi<40) CODING ----- Procedures [id number]: OB follow-up/Target per fetus. HISTORY ----- OB History : 1. MATERNAL ASSESSMENT ----- Physical Exam Weight 100 kg. BMI 38.98 kg/m?. METHOD ----- Transabdominal ultrasound examination. ----- Hu . Number of fetuses: 1. DATING ----- LMP on:03/04/2016 Cycle:regular cycle GA by LMP34 w + 6 d JAMARCUS by LMP:12/09/2016 Ultrasound examination on:11/03/2016 GA by U/S based upon:AC, BPD, EFW, Femur, HC GA by U/S35 w + 2 d JAMARCUS by U/S:12/06/2016 Assigned:Dating performed on 04/28/2016, based on the LMP Assigned GA34 w + 6 d Assigned JAMARCUS:12/09/2016 BIOMETRY ----- Main Biometry: BPD 82.6 mm 11% 33w 2dHadlock HC 325.1 mm 66% 36w 6dHadlock AC 322.7 mm 88% 36w 1dHadlock Femur 67.2 mm 34% 34w 4dHadlock Weight Calculation: EFW 2,696 g 65% 35w 3dHadlock EFW (lb,oz) 5 lb oz 15 Calculated by Maurice ([id number]) Proportionality Ratios: HC / AC 1.01 34%Nicolaides FL / BPD 0.81 FL / AC 0.21 GENERAL EVALUATION ----- Cardiac activity: present. FHR 138 bpm. movements: visualized. Presentation: breech. Placenta: Placental site: posterior. Umbilical cord: Cord vessels: 3 vessel cord. Amniotic fluid: MARGOT 10.8 cm. Q1 2.3 cm, Q2 3.0 cm, Q3 5.5 cm. ANATOMY ----- The following structures were visualized with normal appearance: Head: Head shape and size appear normal. Brain: Lateral cerebral ventricles, midline falx and cavum septi pellucidiappear normal. Thorax: No thoracic abnormalities detected. Heart: Cardiac rhythm appears normal. Stomach: Stomach size and situs appear normal. Bladder: size and shape. The following structures were abnormal: Kidneys Right kidney: Hydronephrosis of the right kidney;Rt renal pelvis 9.3 mm. Left kidney: Pyelectasis of the left kidney 7.7 mm. The following structures were visualized: Upper extremities. Lower extremities. Other findings: Face previously seen. Spine previously seen. Heart Four chamber view: previously seen. Abdominal wall previously seen. FOLLOW-UP ----- follow-up is recommended, the patient has previously met withDr. Goldberg and is planning for followup. IMPRESSION IMPRESSION ----- Interval growth is appropriate. There is stable bilateral pyelectasis noted. The right renal pelvis measures 9.3mm carmine left renal pelvis measures 7.7mm. There is a grade 2 hydronephrosis of the right kidney which is stable. The left kidney is suboptimally imaged but appears consistent with a grade1 hydronephrosis. There is renal parenchyma noted, the bladder is normal in appearance.There is no evidence of hydroureter. Normal fluid and placentation. Davian Gonzalez MD ORDERABLES documented in this encounter Visit Diagnoses Diagnosis Maternal obesity affecting , antepartum Suspected damage to fetus from other disease in mother, affecting management of mother, antepartum condition or complication, not applicable or unspecified fetus documented in this encounter Care Teams Pharmaceutical Sales Relationship Specialty Start Date End Date Nando Briscoe MD [address] [place] [address] PCP - General Family Practice 04/26/16 documented as of this encounter
--- OUTSIDE RECORDS SUMMARY | 2024-07-06 15:54 | XMS_ITS | Encounter Summary ---
Author Organization [facility] Address [address] [facility] Attn: Epic Prelude ADT IAN BOB [address] Care Team Providers Care Practical Nursing Faculty Name Role Phone Nando Briscoe MD Primary Care Provider [phone] Encounter Details Date Type Department Care Team (Latest Contact Info) Description 08/17/2020 Travel Social History Tobacco Use Types Packs/Day Years Used Date Smoking Tobacco: Never Assessed Sex and Gender Information Value Date Recorded Sex Assigned at Not on file Gender Identity Not on file Sexual Orientation Not on file COVID-19 Exposure Response Date Recorded In the last month, have you been in contact with someone who was confirmed or suspected to have Coronavirus / COVID-19? 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 documented as of this encounter Plan of Treatment Upcoming Encounters Date Type Department Care Team (Late st Contact Info) Description 07/15/2024 1:00 PM CONSTRUCTION OR LEAK GANG LABORER Appointment [facility] Maternal and Health [facility] [address] [place] [address] Davian Gonzalez MD [address] [facility] [address] [place] [address] documented as of this encounter Visit Diagnoses Not on filedocumented in this encounter Care Teams Practical Nursing Faculty Relationship Specialty Start Date End Date Nando Briscoe MD [address] [place] [phone] PCP - General Family Practice 04/26/16 documented as of this encounter
--- OUTSIDE RECORDS SUMMARY | 2024-07-06 15:54 | XMS_ITS | Encounter Summary ---
Author Organization [facility] Address [address] [facility] Attn: [place] [address] Care Team Providers Care Vascular Surgery Physician Name Role Phone Nando Briscoe MD Primary Care Provider [phone] Encounter Details Date Type Department Care Team (Latest Contact Info) Description 11/30/2020 Travel Social History Tobacco Use Types Packs/Day [...] have Coronavirus / COVID-19? No / Unsure 11/30/2020 9:53 AM CDT documented as of this encounter Plan of Treatment Upcoming Encounters Date Type Department Care Team (Late Contact Info) Description 07/15/2024 1:00 PM CORSETS SALESPERSON Appointment [facility] Maternal and [facility] [address] [place] [address] Davian Gonzalez MD [address] [facility] [address] [place] [address] documented as of this encounter Visit Diagnoses Not on filedocumented in this encounter Care Teams Vascular Surgery Physician Relationship Specialty Start Date End Date Nando Briscoe MD [address] [place] [phone] PCP - General Family Practice 04/26/16 documented as of this encounter
--- OUTSIDE RECORDS SUMMARY | 2024-07-06 15:54 | XMS_ITS | Encounter Summary ---
Author Organization [facility] Address [address] [place] [address] Care Team Providers Care Therapy Director Name Role Phone Nando Briscoe MD Primary Care Provider [phone] Reason for Referral * Radiology Services (Routine) - Closed Specialty Diagnoses / Procedures Referred By Contac t Referred To Contact Diagnoses Encounter for ultrasound to assess growth Procedures US OB FOLLOW UP PER FETUS Sigrid Corley MD [address] [place] [phone] Referral ID Status Reason Start Date Expiration Date V isits Requested Visits Authorized [id number] Closed [facility] CTS 10/06/2020 11/06/2021 1 1 Reason for Visit * Auth/Cert Specialty Diagnoses / Procedures Referred By Contac t Referred To Contact Radiology [facility] [address] [place] [address] Referral ID Status Reason Start Date Expiration Date Visits Re quested Visits Authorized [id number] 1 1 Encounter Details Date Type Department Care Team (Latest Contact Info) Description 10/19/2020 10:00 AM CDT - 10/19/2020 11:59 PM CDT Hospital Encounter [facility] [address] [place] [address] Sigrid Corley MD [address] [place] [address] Discharge Disposition: Home or Self Care Social [...] have Coronavirus / COVID-19? No / Unsure 10/19/2020 9:55 AM CDT documented as of this encounter Plan of Treatment Upcoming Encounters Date Type Department Care Team (Late st Contact Info) Description 07/15/2024 1:00 PM COLLAR SHAPER OPERATOR Appointment [facility] [address] [place] [phone] Davian Gonzalez MD [address] [facility] [address] [place] [address] documented as of this encounter Procedures Procedure Name Priority Date/Time Associated Diagnosis Comments US OB FOLLOW UP PER FETUS Routine 10/19/2020 10:33 AM CDT Encounter for ultrasound to assess growth documented in this encounter Results * US OB FOLLOW UP PER FETUS (10/19/2020 10:33 AM CDT) Anatomical Region Laterality Modality Pelvis Ultrasound 10/19/2020 10:1 7 AM CDT Impressions 10/19/2020 11:26 AM CDT IMPRESSION ----- Hu intrauterine with positive cardiac activity. The fetus is in a breech presentation. The fetus shows an adequate pattern of interval growth with an overall mean estimated weight at the 23rd percentile for the assigned gestational age and an abdominal circumference at the 38th percentile. The anatomic survey is limited to the usual follow-up assessment. No new findings identified within the limitations of today's sonogram. The amniotic fluid volume appears normal for gestational age with amniotic fluid index of 18.3 cm. Recommendations: Consider a follow-up sonogram in approximately 6 weeks to reassess growth given the patient's comorbidities. An earlier sonogram can be completed as clinically indicated. Narrative 10/19/2020 11:26 AM CDT STL Follow Up ----- Pat. Name: YANA ALLAN Study Date: 10/19/2020 10:17am Pat. NO: [id number] Referring ??: ASHLEE RICHTER MD Site: [place] Adoption Counselor: Carolina Jimenes : 1990 Age: 30 ----- INDICATION ----- Maternal Obesity (bmi greater than 30 but bmi less than 40) Previous Maternal Asthma History of PTD ? @ 36 weeks due to non-reassuring testing CODING ----- Diagnosis ? O99.213: Obesity complicating ?E66.8: Other obesity ?O34.21: Maternal care for scar from previous delivery ?O99.513: Diseases of the respiratory system complicating ?O09.213: Supervision of with history of pre-term labor ?Z3A.28: Weeks Gestation of Procedures ?95177: OB follow-up/Target per fetus HISTORY ----- OB History ? 2. Para 1 ?Hu children born living (P) 1 ?P1L1 MATERNAL ASSESSMENT ----- Physical Exam ? Weight 100 kg. BMI 38.98 kg/m?. METHOD ----- Transabdominal ultrasound examination ----- Hu . Number of fetuses: 1. DATING ----- GA by stated dating 28 w + 4 d JAMARCUS by stated dating : 01/07/2021 Ultrasound examination on: 10/19/2020 GA by U/S based upon: AC, BPD, EFW, Femur, HC GA by U/S 28 w + 0 d JAMARCUS by U/S: 01/11/2021 Method of dating: Restore dating from previous exam Assigned: Dating performed on 08/17/2020, based on the external assessment Assigned GA 28 w + 4 d Assigned JAMARCUS: 01/07/2021 BIOMETRY ----- Main Biometry: BPD ? 68.6 ? mm ? 27w 4d ?12% ? Hadlock HC ?264.8 ?mm ? 28w 6d ?25% ? Hadlock AC ?241.6 ?mm ? 28w 3d ?38% ? Hadlock Femur ? 51.7 ? mm ? 27w 4d ?13% ? Hadlock HC / AC ? 1.10 ?54% ? Nicolaides Weight Calculation: EFW ? 1,180 ?g ?27w 6d ?23% ? Hadlock EFW (lb,oz) ? 2 lb 10 ?oz EFW by ? Hadlock ([id number]) Extremities / Bony Struc Biometry: FL / BPD ?0.75 ? FL / AC ? 0.21 ? Other Structures Biometry: AF MVP ?5.4 ?cm ? MARGOT ? 18.3 ? cm ? 77% ? Jones FHR ? 144 ?bpm ? GENERAL EVALUATION ----- Cardiac activity present. FHR 144 bpm. movements present. Presentation breech. Placenta Placental site: posterior. Umbilical cord Cord vessels: 3 vessel cord. Cord insertion: placental insertion: normal. Amniotic fluid Amount of AF: normal amount. MVP 5.4 cm. MARGOT 18.3 cm. Q1 4.4 cm, Q2 4.4 cm, Q3 4.1 cm, Q4 5.4 cm. ANATOMY ----- The following structures appear normal: Head / Neck ? Cranium. Midline falx. Cavum septi pellucidi. Heart / Thorax ?4-chamber view. ?Diaphragm. Abdomen ? Stomach. Kidneys. Bladder. Gender: female. COMMENT ----- Patient's name and date of were verified by the benefits administrator prior to the exam FOLLOW-UP ----- See Above. Procedure Note Kathe Mcdermott MD - 10/19/2020 STL Follow Up ----- Pat. Name:Jose Luis ALLAN Date:10/19/2020 10:17am Pat. NO: [id number] MD:ASHLEE RICHTER [facility] Jimenes :1990Age:30 ----- INDICATION ----- Maternal Obesity (bmi greater than 30 but bmi less than 40) Previous Maternal Asthma History of PTD @ 36 weeks due tonon-reassuring testing CODING ----- Diagnosis O99.213: Obesity complicating E66.8: Other obesity O34.21: Maternal care for scar from previouscesarean delivery O99.513: Diseases of the respiratory systemcomplicating O09.213: Supervision of with history ofpre-term labor Z3A.28: Weeks Gestation of Procedures 90977: OB follow-up/Target per fetus HISTORY ----- OB History 2. Para 1 Hu children born living (P) 1 P1L1 MATERNAL ASSESSMENT ----- Physical Exam Weight 100 kg. BMI 38.98 kg/m?. METHOD ----- Transabdominal ultrasound examination ----- Hu . Number of fetuses: 1. DATING ----- GA by stated dating 28 w + 4 d JAMARCUS by stated dating :01/07/2021 Ultrasound examination on:10/19/2020 GA by U/S based upon:AC, BPD, EFW, Femur, HC GA by U/S28 w + 0 d JAMARCUS by U/S:01/11/2021 Method of dating:Restore dating from previous exam Assigned:Dating performed on 08/17/2020, based on the externalassessment Assigned GA28 w + 4 d Assigned JAMARCUS:01/07/2021 BIOMETRY ----- Main Biometry: BPD 68.6 mm 27w 4d12% Hadlock HC 264.8 mm 28w 6d25% Hadlock AC 241.6 mm 28w 3d38% Hadlock Femur 51.7 mm 27w 4d13% Hadlock HC / AC 1.1054% Nicolaides Weight Calculation: EFW 1,180 g 27w 6d23% Hadlock EFW (lb,oz) 2 lb 10 oz EFW by Hadlock ([id number]) Extremities / Bony Struc Biometry: FL / BPD 0.75 FL / AC 0.21 Other Structures Biometry: AF MVP 5.4 cm MARGOT 18.3 cm77% Jones FHR 144 bpm GENERAL EVALUATION ----- Cardiac activity present. FHR 144 bpm. movements present. Presentation breech. Placenta Placental site: posterior. Umbilical cord Cord vessels: 3 vessel cord. Cord insertion: placentalinsertion: normal. Amniotic fluid Amount of AF: normal amount. MVP 5.4 cm. MARGOT 18.3 cm. Q14.4 cm, Q2 4.4 cm, Q3 4.1 cm, Q4 5.4 cm. ANATOMY ----- The following structures appear normal: Head / Neck Cranium. Midline falx. Cavum septi pellucidi. Heart / Thorax 4-chamber view. Diaphragm. Abdomen Stomach. Kidneys. Bladder. Gender: female. COMMENT ----- Patient's name and date of were verified by the benefits administrator prior tothe exam FOLLOW-UP ----- See Above. IMPRESSION ----- Hu intrauterine with positive cardiac activity. The fetus is in a breech presentation. The fetus shows an adequate pattern of interval growth with an overallmean estimated weight at the 23rd percentile for the assigned gestational age and an abdominal circumference at the 38thpercentile. The anatomic survey is limited to the usual follow-up assessment. Nonew findings identified within the limitations of today's sonogram. The amniotic fluid volume appears normal for gestational age with amnioticfluid index of 18.3 cm. Recommendations: Consider a follow-up sonogram in approximately 6 weeks to reassess fetalgrowth given the patient's comorbidities. An earlier sonogram can be completed as clinically indicated. Sigrid Corley MD US ORDERABLES documented in this encounter Visit Diagnoses Diagnosis Encounter for ultrasound to assess growth documented in this encounter Care Teams Therapy Director Relationship Specialty Start Date End Date Nando Briscoe MD [facility] [place] [address] PCP - General Family Practice 04/26/16 documented as of this encounter
--- OUTSIDE RECORDS SUMMARY | 2024-07-06 15:54 | XMS_ITS | Encounter Summary ---
Author Organization [facility] Address [address] [place] [address] Care Team Providers Care Veneer Marker Name Role Phone Nando Briscoe MD Primary Care Provider [phone] Reason for Visit * Reason Comments Establish Care * Eval and Treat (Routine) - Closed Specialty Diagnoses / Procedures Referred By Contac t Referred To Contact Pediatric Urology / Urology Diagnoses Procedures OFFICE VISIT NEW PATIENT Nando Briscoe MD [address] [place] [address] Farhat [place] MD [address] [address] Referral ID Status Reason Start Date Expiration Date Visits Re quested Visits Authorized [id number] Closed 10/24/2016 11/24/2017 1 1 Encounter Details Date Type Department Care Team (Latest Contact Info) Description 10/24/2016 3:40 PM CDT Office Visit [facility] [address] [place] [address] Farhat [place] MD [address] [place] [address] hydronephrosis during in third trimester, antepartum (Primary Dx) Social History Tobacco Use Types Packs/Day Years Used Date Smoking Tobacco: Never Assessed Comments Yes Sex and Gender Information Value Date Recorded Sex Assigned at Not on file Gender Identity Not on file Sexual Orientation Not on file documented as of this encounter Last Filed Vital Signs Vital Sign Reading [...] Mass Index 38.97 10/24/2016 3:48 PM CDT documented in this encounter Progress Notes * Farhat Jean MD - 10/24/2016 3:51 PM CDT [facility] [place] [facility] Date: 10/24/2016 Name: Yana Allan : 1990 Age: 26 y.o. Sex: .female Referral: Nando Briscoe MD [facility] [place] [address] Family Members Present: self and Allergies: No Known Allergies History of Present Illness: ?? 26 y.o. year old female is referred by Nando Briscoe MD for further evaluation and management of bilateral hydronephosis. Currently 33 weeks gestation. Gender determined to be male. Normalamniotic fluid levels to date. Serial ultrasounds rreveal bilateral grade 2 hydronephrosis. Presents today to discuss management. Current Medications: No current outpatient prescriptions on file. No current facility-administered medications for this visit. No past medical history on file. No past surgical history on file. No family history on file. Family History: negativefor bleeding issues, negative for issues with anesthesia, paternal history of bladder cancer Social History: Lives with , is not exposed to smoke at home Review of Symptoms:Review of Systems Constitutional: Negative. HENT: Negative. Eyes: Negative. Respiratory: Negative. Cardiovascular: Negative. Gastrointestinal: Negative. Genitourinary: Negative. Musculoskeletal: Negative. Skin: Negative. Neurological: Negative. Endo/Heme/Allergies: Negative. Psychiatric/Behavioral: Negative. Physical Exam: Visit Vitals ??? BP 120/70 (BP Location: Left arm, Patient Position (BP): Standing) ??? Temp 97.2 ??F (36.2 ??C) (Temporal) ??? Ht 5' 3 (1.6 m) ??? Wt 99.8 kg (220 lb) ??? BMI 38.97 kg/m2 ? General: Pertinent Imaging Results:No results found. ASSESSMENT: 1. hydronephrosis - Bilateral grade 2 hydronephrosis No hydroureter No bladder abnormalities Normal amniotic fluid level Gender is male 33 weeks gestation DECISION MAKING AND PLAN OF MANAGEMENT: 1. Discussed in great detail with the expectant mother the etiology and management of Hydronephrosis. Various etiologies may be present and are as follows: A) vesicoureteral reflux B) Ureteropelvic junction obstruction C) normal variant 2. management will be as follows: A) Close monitoring of urine output during first 24 hours of life B) UTI prophylaxis in the form of Amoxicillin (15 mg/kg POqhs) C) Renal/Bladder ultrasound to be performed after 48 hours of life D) A voiding cystourethrogram will be performed within the first 2 weeks of life to rule out vesicoureteral reflux 3. The images of the most recent ultrasound were personally reviewed. 4. Dog And Cat Food Cook has not been determined at the current time 5. Yana will be delivering at [facility] in [place] 6. Thank you for the kind referral and please call us with any questions 45 minutes were spent with the patient/family during the visit in which greater than 50 % of the time was spent counseling and/ coordinating the patient's care. Farhat [place] MD documented in this encounter Plan of Treatment Upcoming Encounters Date Type Department Care Team (Late st Contact Info) Description 07/15/2024 1:00 PM DRUG AND ALCOHOL COUNSELOR Appointment [facility] [address] [place] [address] Davian Gonzalez MD [address] [facility] [address] [place] [phone] documented as of this encounter Visit Diagnoses Diagnosis hydronephrosis during in third trimester, antepartum- Primary documented in this encounter Care Teams Veneer Marker Relationship Specialty Start Date End Date Nando Briscoe MD [address] [place] [phone] PCP - General Family Practice 04/26/16 documented as of this encounter
--- OUTSIDE RECORDS SUMMARY | 2024-07-06 15:54 | XMS_ITS | Encounter Summary ---
Author Organization [facility] Address [address] [place] [address] Care Team Providers Care Equipment Specialist Name Role Phone Nando Briscoe MD Primary Care Provider [phone] Reason for Referral * Radiology Services (Routine) - Closed Specialty Diagnoses / Procedures Referred By Contac t Referred To Contact Diagnoses Encounter for screening for malformation Procedures US OB DETAIL SINGLE Sigrid Xie MD [address] [place] [address] Referral ID Status Reason Start Date Expiration Date V isits Requested Visits Authorized [id number] Closed STL CTS 08/06/2020 09/06/2020 1 1 SEOLOGIST Reason for Visit * Radiology Services (Routine) - Closed Specialty Diagnoses / Procedures Referred By Contac t Referred To Contact Diagnoses Encounter for screening for malformation Procedures US OB DETAIL SINGLE Sigrid Xie MD [address] [address] Referral ID Status Reason Start Date Expiration Date V isits Requested Visits Authorized [id number] Closed STL CTS 08/06/2020 09/06/2020 1 1 Encounter Details Date Type Department Care Team (Latest Contact Info) Description 08/17/2020 9:30 AM KINESEOLOGIST - 08/17/2020 11:59 PM KINESEOLOGIST Hospital Encounter [facility] Maternal and [facility] [address] [place] [address] Sigrid Corley MD [address] [place] [address] Discharge Disposition: Home or Self Care Social [...] COVID-19? No / Unsure 08/17/2020 9:39 AM KINESEOLOGIST documented as of this encounter Plan of Treatment Upcoming Encounters Date Type Department Care Team (Late st Contact Info) Description 07/15/2024 1:[address] [facility] Maternal and Health [facility] [address] [place] [address] Davian Gonzalez MD [address] [facility] [address] [place] [address] documented as of this encounter Procedures Procedure Name Priority Date/Time Associated Diagnosis Comments US OB DETAIL SINGLE GEST Routine 08/17/2020 10:40 AM KINESEOLOGIST Encounter for screening for malformation documented in this encounter Results * US OB DETAIL SINGLE GEST (08/17/2020 10:40 AM KINESEOLOGIST) Anatomical Region Laterality Modality Pelvis Ultrasound 08/17/2020 9:52 AM KINESEOLOGIST Impressions 08/17/2020 10:51 AM KINESEOLOGIST IMPRESSION ----- Hu intrauterine with positive cardiac activity. The fetus is in the cephalic presentation. The biometry is consistent with the assigned gestational age. The anatomic survey is limited due to lie and position. The amniotic fluid volume appears normal for gestational age. Narrative 08/17/2020 10:51 AM KINESEOLOGIST STL Comp ----- Pat. Name: YANA ALLAN Study Date: 08/17/2020 9:52am Pat. NO: [id number] Referring ??MD: ASHLEE RICHTER MD Site: [facility] [employer]: Carolina Jimenes : 1990 Age: 30 ----- INDICATION ----- Encounter for anatomic survey ?No genetic testing Maternal Obesity (bmi greater than 30 but bmi less than 40) Previous ? X 1 (breech, non-reassuring testing) History of PTD ? @ 36 weeks due to non-reassuring testing Maternal Asthma CODING ----- Diagnosis ? Z36: Encounter for screening of mother ?O99.212: Obesity complicating ?E66.8: Other obesity ?O34.21: Maternal care for scar from previous delivery ?O09.212: Supervision of with history of pre-term labor ?O99.512: Diseases of the respiratory system complicating ?Z3A.19: Weeks Gestation of Procedures ?00594: OB with Detail (Comprehensive) HISTORY ----- OB History ? 2. Para 1 ?Hu children born living (P) 1 ?P1L1 MATERNAL ASSESSMENT ----- Physical Exam ? Weight 91 kg. BMI 35.44 kg/m?. METHOD ----- Transabdominal ultrasound examination ----- Hu . Number of fetuses: 1. DATING ----- Method of dating: based on the external assessment GA by stated dating 19 w + 4 d JAMARCUS by stated dating : 01/07/2021 Ultrasound examination on: 08/17/2020 GA by U/S based upon: AC, BPD, EFW, Femur, HC GA by U/S 19 w + 1 d JAMARCUS by U/S: 01/10/2021 Assigned: Dating performed on 08/17/2020, based on the external assessment Assigned GA 19 w + 4 d Assigned JAMARCUS: 01/07/2021 BIOMETRY ----- Main Biometry: BPD ? 44.1 ? mm ? 19w 2d ?40% ? Hadlock HC ?162.5 ?mm ? 19w 0d ?19% ? Hadlock Cerebellum tr ? 19.2 ? mm ? 19w 2d ?38% ? Palacio AC ?142.7 ?mm ? 19w 4d ?47% ? Hadlock Femur ? 28.9 ? mm ? 18w 6d ?20% ? Hadlock Humerus ? 27.4 ? mm ? 18w 5d ?24% ? Valorie HC / AC ? 1.14 ?27% ? Nicolaides Weight Calculation: EFW ? 282 ?g ?19w 1d ?28% ? Hadlock EFW (lb,oz) ? 0 lb 10 ?oz EFW by ? Hadlock ([id number]) Head / Face / Neck Biometry: CM ?3.6 ?mm ? 12% ? Nicolaides Outer IOD ? 29.2 ? mm ? 19w 0d ?17% ? Valorie Nuchal fold ? 4.4 ?mm ? Extremities / Bony Struc Biometry: FL / BPD ?0.66 ?22% ? Hadlock FL / AC ? 0.20 ?12% ? Hadlock Tibia ? 25.4 ? mm ? 19w 0d ?38% ? Valorie Other Structures Biometry: AF MVP ?3.7 ?cm ? FHR ? 134 ?bpm ? GENERAL EVALUATION ----- Cardiac activity present. FHR 134 bpm. movements present. Presentation cephalic. Placenta Placental site: posterior. Umbilical cord Cord vessels: 3 vessel cord. Cord insertion: placental insertion: normal. Amniotic fluid Amount of AF: normal amount. MVP 3.7 cm. ANATOMY ----- The following structures appear normal: Head / Neck ? Cranium. Lateral ventricles. Choroid plexus. Midline falx. Cavum septi pellucidi. Cerebellum. Cisterna ?magna. Thalami. ?Nuchal fold. Face ?Lips. Nose. Palate. Orbits. Heart / Thorax ?Situs. Aortic arch view. Ductal arch view. Superior vena cava. Inferior vena cava. 3-vessel view. Cardiac ?rhythm. ?Diaphragm. Abdomen ? Abdominal wall. Stomach. Kidneys. Bladder. Spine ? Cervical spine. Thoracic spine. Lumbar spine. Sacral spine. Extremities / ? Right hand. Left hand. Right foot. Left foot. Skeleton The following structures could not be adequately visualized: Face ?Profile. Heart / Thorax ?4-chamber view. RVOT view. LVOT view. High short axis view. 2-jzbxii-kfmjzku view. Gender: female. MATERNAL STRUCTURES ----- Cervix ?Visualized ?Approach - Transabdominal: Cervical length 35.6 mm Right Ovary ? Suboptimal Left Ovary ?Suboptimal COMMENT ----- Patient's name and date of were verified by the life management teacher before the exam FOLLOW-UP ----- Recommendations: Consider follow-up sonogram in approximately 4 weeks to reassess growth and complete the anatomic survey. Procedure Note Kathe Mcdermott MD - 08/17/2020 STL Comp ----- Pat. Name:Jose Luis ALLAN Date:08/17/2020 9:52am Pat. NO: [id number] MD:ASHLEE RICHTER MD [facility] Jimenes :1990Age:30 ----- INDICATION ----- Encounter for anatomic survey No genetic testing Maternal Obesity (bmi greater than 30 but bmi less than 40) Previous X 1 (breech,non-reassuring testing) History of PTD @ 36 weeks due tonon-reassuring testing Maternal Asthma CODING ----- Diagnosis Z36: Encounter for screening of mother O99.212: Obesity complicating E66.8: Other obesity O34.21: Maternal care for scar from previouscesarean delivery O09.212: Supervision of with history ofpre-term labor O99.512: Diseases of the respiratory systemcomplicating Z3A.19: Weeks Gestation of Procedures 99059: OB with Detail (Comprehensive) HISTORY ----- OB History 2. Para 1 Hu children born living (P) 1 P1L1 MATERNAL ASSESSMENT ----- Physical Exam Weight 91 kg. BMI 35.44 kg/m?. METHOD ----- Transabdominal ultrasound examination ----- Hu . Number of fetuses: 1. DATING ----- Method of dating:based on the external assessment GA by stated dating 19 w + 4 d JAMARCUS by stated dating :01/07/2021 Ultrasound examination on:08/17/2020 GA by U/S based upon:AC, BPD, EFW, Femur, HC GA by U/S19 w + 1 d JAMARCUS by U/S:01/10/2021 Assigned:Dating performed on 08/17/2020, based on the externalassessment Assigned GA19 w + 4 d Assigned JAMARCUS:01/07/2021 BIOMETRY ----- Main Biometry: BPD 44.1 mm 19w 2d40% Hadlock HC 162.5 mm 19w 0d19% Hadlock Cerebellum tr 19.2 mm 19w 2d38% Palacio AC 142.7 mm 19w 4d47% Hadlock Femur 28.9 mm 18w 6d20% Hadlock Humerus 27.4 mm 18w 5d24% Valorie HC / AC 1.1427% Nicolaides Weight Calculation: EFW 282 g 19w 1d28% Hadlock EFW (lb,oz) 0 lb 10 oz EFW by Hadlock ([id number]) Head / Face / Neck Biometry: CM 3.6 mm12% Nicolaides Outer IOD 29.2 mm 19w 0d17% Valorie Nuchal fold 4.4 mm Extremities / Bony Struc Biometry: FL / BPD 0.6622% Hadlock FL / AC 0.2012% Hadlock Tibia 25.4 mm 19w 0d38% Valorie Other Structures Biometry: AF MVP 3.7 cm FHR 134 bpm GENERAL EVALUATION ----- Cardiac activity present. FHR 134 bpm. movements present. Presentation cephalic. Placenta Placental site: posterior. Umbilical cord Cord vessels: 3 vessel cord. Cord insertion: placentalinsertion: normal. Amniotic fluid Amount of AF: normal amount. MVP 3.7 cm. ANATOMY ----- The following structures appear normal: Head / Neck Cranium. Lateral ventricles. Choroid plexus.Midline falx. Cavum septi pellucidi. Cerebellum. Cisterna magna. Thalami. Nuchal fold. Face Lips. Nose. Palate. Orbits. Heart / Thorax Situs. Aortic arch view. Ductal arch view.Superior vena cava. Inferior vena cava. 3-vessel view. Cardiac rhythm. Diaphragm. Abdomen Abdominal wall. Stomach. Kidneys. Bladder. Spine Cervical spine. Thoracic spine. Lumbar spine.Sacral spine. Extremities / Right hand. Left hand. Right foot. Left foot. Skeleton The following structures could not be adequately visualized: Face Profile. Heart / Thorax 4-chamber view. RVOT view. LVOT view. High shortaxis view. 2-styofz-ullkmhp view. Gender: female. MATERNAL STRUCTURES ----- Cervix Visualized Approach - Transabdominal: Cervical length 35.6mm Right Ovary Suboptimal Left Ovary Suboptimal COMMENT ----- Patient's name and date of were verified by the life management teacher beforethe exam FOLLOW-UP ----- Recommendations: Consider follow-up sonogram in approximately 4 weeks to reassess fetalgrowth and complete the anatomic survey. IMPRESSION ----- Hu intrauterine with positive cardiac activity. The fetus is in the cephalic presentation. The biometry is consistent with the assigned gestational age. The anatomic survey is limited due to lie and position. The amniotic fluid volume appears normal for gestational age. Sigrid Corley MD ORDERABLES documented in this encounter Visit Diagnoses Diagnosis Encounter for screening for malformation documented in this encounter Care Teams Equipment Specialist Relationship Specialty Start Date End Date Nando Briscoe MD [address] [place] [address] PCP - General Family Practice 04/26/16 documented as of this encounter
--- OUTSIDE RECORDS SUMMARY | 2024-07-06 15:54 | XMS_ITS | Encounter Summary ---
Author Organization [facility] Address [address] [place] [address] Care Team Providers Care Stage Electrician Name Role Phone Nando Briscoe MD Primary Care Provider [phone] Encounter Details Date Type Department Care Team (Late st Contact Info) Description 04/02/2024 External Device Data STL ABSTRACTION Provider, Abstract NO ADDRESS ON FILE Social History Tobacco Use Types Packs/Day Years Used Date Smoking Tobacco: Never Assessed Sex and Gender Information Value Date Recorded Sex Assigned at Not on file Gender Identity Not on file Sexual Orientation Not on file documented as of this encounter Plan of Treatment Upcoming Encounters Date Type Department Care Team (Late st Contact Info) Description 07/15/2024 1:00 PM MAMMOGRAPHY TECHNICIAN Appointment [facility] Maternal and Health [facility] [address] [facility] 3[address] [place] [address] Davian Gonzalez MD [address] [facility] [address] [place] [phone] documented as of this encounter Visit Diagnoses Not on filedocumented in this encounter Care Teams Stage Electrician Relationship Specialty Start Date End Date Nando Briscoe MD [address] [place] [address] PCP - General Family Practice 04/26/16 documented as of this encounter
--- OUTSIDE RECORDS SUMMARY | 2024-07-06 15:54 | XMS_ITS | Continuity of Care Document ---
Author Organization [facility] Address [address] [place] [address] Phone Care Team Providers Care Live In Housekeeper Name Role Phone Unavailable Unavailable Unavailable Advance Directives Directive Yes / No Effective Date File Name No Information Encounters Encounter Description Practice Location Reason(s) For Visit Diagnoses Date Provider Providers Copied on Encounter [facility], [address] [facility], [place], [place], [id number], tel:[phone] [facility] No Information 0201 [id number] No Information Referring Provider: ASHLEE RICHTER, [address] [place] [address],[place], [address]. tel:[phone] Family History Family Member Type Diagnosis Age At Onset No Information Payers Payer name Insurance type Covered constitution party ID Authormedhata dion(s) [facility] POS [id number] CI [id number] Social History Type Description Quantity Date Captured Comments Sex Female Smoking Status No Information Chief Complaint And Reason For Visit No Information History Of Present Illness Encounter Date Complaint History Of Prese nt Illness No Information Instructions Date Instruction Additional Infor mation No Information Assessments Type Assessment Date No Information
--- OUTSIDE RECORDS SUMMARY | 2024-07-06 15:54 | XMS_ITS | Encounter Summary ---
Author Organization [facility] Address [address] [place] [address] Care Team Providers Care Twister Frame Tender Name Role Phone Nando Briscoe MD Primary Care Provider [phone] Reason for Referral * Outpatient Services (Routine) - Closed Specialty Diagnoses / Procedures Referred By Contac t Referred To Contact Diagnoses Normal first in first trimester Procedures US OB LESS THAN 14 WKS SINGLE GEST Ashlee Richter MD [address] [address] Referral ID Status Reason Start Date Expiration Date Visits Re quested Visits Authorized [id number] Closed 04/26/2016 05/27/2017 1 1 Reason for Visit * Auth/Cert Specialty Diagnoses / Procedures Referred By Contac t Referred To Contact Radiology [facility] Maternal And [facility] [address] [place] [address] Referral ID Status Reason Start Date Expiration Date Visits Re quested Visits Authorized [id number] 1 1 Encounter Details Date Type Department Care Team (Latest Contact Info) Description 04/28/2016 2:00 PM CDT - 04/28/2016 11:59 PM CDT Hospital Encounter [facility] [address] [place] [address] Ashlee Richter MD [address] [phone] Discharge Disposition: Home or Self Care Social [...] st Contact Info) Description 07/15/2024 1:00 PM FOOD ASSEMBLER KITCHEN Appointment [facility] Maternal and Health [facility] [address] [place] [phone] Davian Gonzalez MD [address] [facility] [place] [address] documented as of this encounter Procedures Procedure Name Priority Date/Time Associated Diagnosis Comments US OB LESS THAN 14 WKS SINGLE GEST Routine 04/28/2016 2:57 PM CDT Normal first in first trimester documented in this encounter Results * US OB LESS THAN 14 WKS SINGLE GEST (04/28/2016 2:57 PM CDT) Anatomical Region Laterality Modality Pelvis Ultrasound 04/28/2016 2:35 PM CDT Impressions 04/28/2016 2:59 PM CDT IMPRESSION ----- Hu viable intrauterine . CRL is consistent with the menstrual age. Normal heart rate observed. Ovaries appear normal. No adnexal masses or free fluid. Narrative 04/28/2016 2:59 PM CDT 1st Trimester <10 weeks ----- Pat. Name: YANA ALLAN Study Date: 04/28/2016 2:35pm Pat. NO: [id number] Referring ??MD: ASHLEE RICHTER MD Site: [facility] [employer] Worker: Carolina Jimenes RDMS : 1990 Age: 25 ----- INDICATION ----- Encounter to determine viability ? Dating CODING ----- Diagnosis ? O36.80X0: with inconclusive viability: Unspecified Fetus. ?Z3A.01: Weeks Gestation of . Procedures ?49860: OB ABD <14 wks (1st trimester). ?05216: OB Transvaginal - Cervical length. HISTORY ----- OB History ?: 1. MATERNAL ASSESSMENT ----- Physical Exam ? Weight 86 kg. BMI 33.66 kg/m?. METHOD ----- Transabdominal and transvaginal ultrasound examination. ----- Hu . Number of gestational sacs: 1. DATING ----- LMP on: 03/04/2016 Cycle: regular cycle GA by LMP 7 w + 6 d JAMARCUS by LMP: 12/09/2016 Ultrasound examination on: 04/28/2016 GA by U/S based upon: CRL GA by U/S 7 w + 6 d JAMARCUS by U/S: 12/09/2016 Assigned: Dating performed on 04/28/2016, based on the LMP Assigned GA 7 w + 6 d Assigned JAMARCUS: 12/09/2016 ASSESSMENT ----- Gestational sac: visualized. Location: intrauterine. Yolk sac: visualized. Embryo: visualized. Cardiac activity: present. CRL ?14.6 ? mm ?7w 6d ?Hadlock FHR ?167 ?bpm ? MATERNAL STRUCTURES ----- Uterus ?Long 9.1 cm x AP 4.6 cm x Tr 4.8 cm. Vol. 105.2 cm?. Cervix ?Patient states she is not allergic to latex and a latex probe cover was used. Right Ovary ? Size 2.6 cm x 2.1 cm x 1.4 cm. Mean 2.0 cm. Vol. 3.8 cm?. Left Ovary ?Size 2.1 cm x 1.5 cm x 1.4 cm. Mean 1.7 cm. Vol. 2.3 cm?. COMMENT ----- Viable IUP Size equals dates, based on LMP Pt sees today No follow up scheduled at this time Carolina Jimenes RDMS. Procedure Note Davian Gonzalez MD - 04/28/2016 1st Trimester <10 weeks ----- Pat. Name:Jose Luis ALLAN Date:04/28/2016 2:35pm Pat. NO: [id number] MD:ASHLEE RICHTER MD [facility]ina Jimenes RDMS :1990Age:25 ----- INDICATION ----- Encounter to determine viability Dating CODING ----- Diagnosis O36.80X0: with inconclusive fetalviability: Unspecified Fetus. Z3A.01: Weeks Gestation of . Procedures 67193: OB ABD <14 wks (1st trimester). 56477: OB Transvaginal - Cervical length. HISTORY ----- OB History : 1. MATERNAL ASSESSMENT ----- Physical Exam Weight 86 kg. BMI 33.66 kg/m?. METHOD ----- Transabdominal and transvaginal ultrasound examination. ----- Hu . Number of gestational sacs: 1. DATING ----- LMP on:03/04/2016 Cycle:regular cycle GA by LMP7 w + 6 d JAMARCUS by LMP:12/09/2016 Ultrasound examination on:04/28/2016 GA by U/S based upon:CRL GA by U/S7 w + 6 d JAMARCUS by U/S:12/09/2016 Assigned:Dating performed on 04/28/2016, based on the LMP Assigned GA7 w + 6 d Assigned JAMARCUS:12/09/2016 ASSESSMENT ----- Gestational sac: visualized. Location: intrauterine. Yolk sac: visualized. Embryo: visualized. Cardiac activity: present. CRL 14.6 mm 7w 6dHadlock FHR 167 bpm MATERNAL STRUCTURES ----- Uterus Long 9.1 cm x AP 4.6 cm x Tr 4.8 cm. Vol. 105.2cm?. Cervix Patient states she is not allergic to latex and alatex probe cover was used. Right Ovary Size 2.6 cm x 2.1 cm x 1.4 cm. Mean 2.0 cm. Vol.3.8 cm?. Left Ovary Size 2.1 cm x 1.5 cm x 1.4 cm. Mean 1.7 cm. Vol.2.3 cm?. COMMENT ----- Viable IUP Size equals dates, based on LMP Pt sees today No follow up scheduled at this time Carolina Jimenes RDMS. IMPRESSION IMPRESSION ----- Hu viable intrauterine . CRL is consistent with the menstrual age. Normal heart rate observed. Ovaries appear normal. No adnexal masses or free fluid. Ashlee Richter MD ORDERABLES documented in this encounter Visit Diagnoses Diagnosis Normal first in first trimester documented in this encounter Care Teams Twister Frame Tender Relationship Specialty Start Date End Date Nando Briscoe MD [address] [place] [address] PCP - General Family Practice 04/26/16 documented as of this encounter
--- OUTSIDE RECORDS SUMMARY | 2024-07-06 15:54 | XMS_ITS | Encounter Summary ---
Author Organization Address [address] [facility] Attn: [place] [address] Care Team Providers Care Supervisor Water Treatment Plant Name Role Phone Nando Briscoe MD Primary Care Provider [phone] Encounter Details Date Type Department Care Team (Latest Contact Info) Description 10/15/2020 Travel Social History Tobacco Use Types Packs/Day [...] have Coronavirus / COVID-19? No / Unsure 10/15/2020 11:59 AM CDT documented as of this encounter Plan of Treatment Upcoming Encounters Date Type Department Care Team (Late st Contact Info) Description 07/15/2024 1:00 PM COMPENSATION EXPERT Appointment [facility] Maternal and [facility] [address] [place] [address] Davian Gonzalez MD [address] [facility] [address] [place] [address] documented as of this encounter Visit Diagnoses Not on filedocumented in this encounter Care Teams Supervisor Water Treatment Plant Relationship Specialty Start Date End Date Nando Briscoe MD [address] [place] [phone] PCP - General Family Practice 04/26/16 documented as of this encounter
--- OUTSIDE RECORDS SUMMARY | 2024-07-06 15:54 | XMS_ITS | Encounter Summary ---
Author Organization [facility] Address [address] [place] [address] Care Team Providers Care Machine Shop Apprentice Name Role Phone Nando Briscoe MD Primary Care Provider [phone] Encounter Details Date Type Department Care Team [...] st Contact Info) Description 07/15/2024 1:00 PM SEARCH MARKETING ANALYST Appointment [facility] Maternal and Health [facility] [address] [facility] 3rd [place] [address] Davian Gonzalez MD [address] [facility] [address] [place] [address] documented as of this encounter Visit Diagnoses Not on filedocumented in this encounter Care Teams Machine Shop Apprentice Relationship Specialty Start Date End Date Nando Briscoe MD [address] [place] [phone] PCP - General Family Practice 04/26/16 documented as of this encounter
--- OUTSIDE RECORDS SUMMARY | 2024-07-06 15:54 | XMS_ITS | Encounter Summary ---
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
--- OUTSIDE RECORDS SUMMARY | 2024-07-06 15:54 | XMS_ITS | Encounter Summary ---
Author Organization [facility] Address [address] [place] [address] Care Team Providers Care Market Survey Representative Name Role Phone Nando Briscoe MD Primary Care Provider [phone] Reason for Referral * Outpatient Services (Routine) - Closed Specialty Diagnoses / Procedures Referred By Contac t Referred To Contact Radiology Diagnoses Encounter for anatomic survey Procedures US OB FOLLOW UP PER FETUS Ashlee Richter MD [address] [facility] [address] [address] [facility] Maternal And [facility] [address] [place] [address] Referral ID Status Reason Start Date Expiration Date Visits Re quested Visits Authorized [id number] Closed 07/21/2016 08/21/2017 1 1 DIGGER Reason for Visit * Auth/Cert Specialty Diagnoses / Procedures Referred By Contac t Referred To Contact Radiology [facility] Maternal And [facility] [address] [place] [address] Referral ID Status Reason Start Date Expiration Date Visits Re quested Visits Authorized [id number] 1 1 Encounter Details Date Type Department Care Team (Latest Contact Info) Description 08/18/2016 2:49 PM HERB DIGGER - 08/18/2016 11:59 PM HERB DIGGER Hospital Encounter [facility] Maternal and [facility] [address] [place] [address] Ashlee Richter MD [address] [place] [phone] Discharge Disposition: Home or Self Care Social [...] st Contact Info) Description 07/15/2024 1:00 PM HERB DIGGER Appointment [facility] Maternal and Health [facility] [address] [place] [address] Davian Gonzalez MD [address] [facility] [address] [place] [address] documented as of this encounter Procedures Procedure Name Priority Date/Time Associated Diagnosis Comments US OB FOLLOW UP PER FETUS Routine 08/18/2016 4:00 PM HERB DIGGER Encounter for anatomic survey documented in this encounter Results * US OB FOLLOW UP PER FETUS (08/18/2016 4:00 PM HERB DIGGER) Anatomical Region Laterality Modality Pelvis Ultrasound 08/18/2016 3:11 PM HERB DIGGER Impressions 08/18/2016 11:54 PM HERB DIGGER IMPRESSION ----- Here today for completion of the anatomical survey. The biometry is consistent with her estabslished dates. The amniotic fluid volume is normal and there were movements noted. The remainder of the anatomical survey showed no gross abnormalities, except for new finding of mild bilateral pyelectasis. The bladder appeared to be normal and no other abnormalities were noted. This may be a transient event and may spontaneously resolve with advancing gestation. However, if it were to persist/worsen than will need renal ultrasound and Peds urology evaluation based on those findings. In children, this is known as reflux and is usually treated expectantly with prophylaxis antibiotics and surgical intervention for refractory to treatment or worsening condition. Ultrasound has it's limitations in detecting all congenital anomalies and chromosomal abnormalities/inherited disorders or genetic syndromes. Narrative 08/18/2016 11:54 PM HERB DIGGER Follow Up Basic ----- Pat. Name: YANA ALLAN Study Date: 08/18/2016 3:11pm Pat. NO: [id number] Referring ??MD: ASHLEE RICHTER MD Site: [place] [employer] Officer: Carolina Jimenes RDMS : 1990 Age: 26 ----- INDICATION ----- Maternal Obesity (bmi>30 but bmi<40) Other Condition ?Complete anatomy CODING ----- Diagnosis ? O99.212: Obesity complicating . ?E66.8: Other obesity. ?XXX.10: Other condition. ?Z3A.23: Weeks Gestation of . Procedures ?46379: OB follow-up/Target per fetus. HISTORY ----- OB History ?: 1. METHOD ----- Transabdominal ultrasound examination. ----- Hu . Number of fetuses: 1. DATING ----- LMP on: 03/04/2016 Cycle: regular cycle GA by LMP 23 w + 6 d JAMARCUS by LMP: 12/09/2016 Ultrasound examination on: 08/18/2016 GA by U/S based upon: AC, BPD, EFW, Femur, HC GA by U/S 24 w + 1 d JAMARCUS by U/S: 12/07/2016 Assigned: Dating performed on 04/28/2016, based on the LMP Assigned GA 23 w + 6 d Assigned JAMARCUS: 12/09/2016 BIOMETRY ----- Main Biometry: BPD ?58.3 ? mm ?44% ? 23w 6d ? Hadlock HC ? 229.1 ?mm ?74% ? 25w 0d ? Hadlock AC ? 190.0 ?mm ?37% ? 23w 5d ? Hadlock Femur ?43.2 ? mm ?47% ? 24w 1d ? Hadlock Weight Calculation: EFW ?652 ?g ? 48% ? 23w 6d ? Hadlock EFW (lb,oz) ?1 lb 7 ? oz Calculated by ?Hadlock (HZC-HB-SM-FL) Proportionality Ratios: HC / AC ?1.21 ? 85% ?Nicolaides FL / BPD ? 0.74 ? FL / AC ?0.23 ? Urinary Tract Biometry: Rt Kidney ?16.7 ? mm x ?17.0 mm x 31.7 mm Lt Kidney ?17.0 ? mm x ?17.3 mm x 28.7 mm Rt Kidney vol ?4.712 ?cm? 69% ?Chitty Lt Kidney vol ?4.420 ?cm? 63% ?Chitty Rt Iglesia. Pelvis ?5.1 mm Lt Iglesia. Pelvis ?6.1 mm GENERAL EVALUATION ----- Cardiac activity: present. FHR 136 bpm. movements: visualized. Presentation: breech. Placenta: Placental site: posterior. Umbilical cord: Cord vessels: 3 vessel cord. Amniotic fluid: MVP 7.4 cm. ANATOMY ----- The following structures were visualized with normal appearance: Head ?Head shape and size appear normal. Brain ? Cerebellum, choroid plexus, cisterna magna, lateral cerebral ventricles, midline falx and cavum septi ?pellucidi appear normal. Face ?Profile,nose, upper lipappear normal. Spine ? Cervical, thoracic, lumbar and sacral spine appear normal. Thorax ?No thoracic abnormalities detected. Heart ? Four chamber view of the heart and outflow tracts appear normal. ?3-vessel - trachea view. Bicaval view. Aortic arch view. Ductal arch view. Abdominal wall ?Abdominal wall and cord insertion appear normal. Stomach ? Stomach size and situs appear normal. Bladder ? size and shape. The following structures were abnormal: Kidneys: Pyelectasis; Left is 6.1mm Right is 5.1mm. The following structures were visualized: Upper extremities. Other findings: Lower extremities: previously seen. Gender: male. FOLLOW-UP ----- To return at 28 weeks for reevaluation of the kidneys and if the pyelectasis were to persists, than would refer to Care Team for coordination of care and Peds urology consultation. Thank you for allowing us to partake in your patient's care. Procedure Note Jose Juan Morales DO - 08/18/2016 Follow Up Basic ----- Pat. Name:Jose Luis ALLAN Date:08/18/2016 3:11pm Pat. NO: [id number] MD:ASHLEE RICHTER MD [facility]Carolina Jimenes [facility] :1990Age:26 ----- INDICATION ----- Maternal Obesity (bmi>30 but bmi<40) Other Condition Complete anatomy CODING ----- Diagnosis O99.212: Obesity complicating . E66.8: Other obesity. XXX.10: Other condition. Z3A.23: Weeks Gestation of . Procedures 71990: OB follow-up/Target per fetus. HISTORY ----- OB History : 1. METHOD ----- Transabdominal ultrasound examination. ----- Hu . Number of fetuses: 1. DATING ----- LMP on:03/04/2016 Cycle:regular cycle GA by LMP23 w + 6 d JAMARCUS by LMP:12/09/2016 Ultrasound examination on:08/18/2016 GA by U/S based upon:AC, BPD, EFW, Femur, HC GA by U/S24 w + 1 d JAMARCUS by U/S:12/07/2016 Assigned:Dating performed on 04/28/2016, based on the LMP Assigned GA23 w + 6 d Assigned JAMARCUS:12/09/2016 BIOMETRY ----- Main Biometry: BPD 58.3 mm 44% 23w 6dHadlock HC 229.1 mm 74% 25w 0dHadlock AC 190.0 mm 37% 23w 5dHadlock Femur 43.2 mm 47% 24w 1dHadlock Weight Calculation: EFW 652 g 48% 23w 6dHadlock EFW (lb,oz) 1 lb 7 oz Calculated by Maurice (KVZ-FN-LL-FL) Proportionality Ratios: HC / AC 1.21 85%Nicolaides FL / BPD 0.74 FL / AC 0.23 Urinary Tract Biometry: Rt Kidney 16.7 mm x 17.0 mm x 31.7mm Lt Kidney 17.0 mm x 17.3 mm x 28.7mm Rt Kidney vol 4.712 cm? 69%Chitty Lt Kidney vol 4.420 cm? 63%Chitty Rt Iglesia. Pelvis 5.1 mm Lt Iglesia. Pelvis 6.1 mm GENERAL EVALUATION ----- Cardiac activity: present. FHR 136 bpm. movements: visualized. Presentation: breech. Placenta: Placental site: posterior. Umbilical cord: Cord vessels: 3 vessel cord. Amniotic fluid: MVP 7.4 cm. ANATOMY ----- The following structures were visualized with normal appearance: Head Head shape and size appear normal. Brain Cerebellum, choroid plexus, cisterna magna,lateral cerebral ventricles, midline falx and cavum septi pellucidi appear normal. Face Profile,nose, upper lipappear normal. Spine Cervical, thoracic, lumbar and sacral spine appearnormal. Thorax No thoracic abnormalities detected. Heart Four chamber view of the heart and outflow tractsappear normal. 3-vessel - trachea view. Bicaval view. Aortic archview. Ductal arch view. Abdominal wall Abdominal wall and cord insertion appearnormal. Stomach Stomach size and situs appear normal. Bladder size and shape. The following structures were abnormal: Kidneys: Pyelectasis; Left is 6.1mm Right is 5.1mm. The following structures were visualized: Upper extremities. Other findings: Lower extremities: previously seen. Gender: male. FOLLOW-UP ----- To return at 28 weeks for reevaluation of the kidneys and if thepyelectasis were to persists, than would refer to Care Team for coordination of care and Peds urology prenatalconsultation. Thank you for allowing us to partake in your patient's care. IMPRESSION IMPRESSION ----- Here today for completion of the anatomical survey. The biometry is consistent with her estabslished dates. The amniotic fluid volume is normal and there were movementsnoted. The remainder of the anatomical survey showed no gross abnormalities,except for new finding of mild bilateral pyelectasis. The bladder appeared to be normal and no other abnormalities were noted.This may be a transient event and may spontaneously resolve with advancing gestation. However, if it were to persist/worsenthan will need renal ultrasound and Peds urology evaluation based on those findings. In children, this isknown as reflux and is usually treated expectantly with prophylaxis antibiotics and surgical intervention for refractory totreatment or worsening condition. Ultrasound has it's limitations in detecting all congenital anomalies andchromosomal abnormalities/inherited disorders or genetic syndromes. Ashlee Richter MD ORDERABLES documented in this encounter Visit Diagnoses Diagnosis Encounter for anatomic survey documented in this encounter Care Teams Market Survey Representative Relationship Specialty Start Date End Date Nando Briscoe MD [facility] [place] [phone] PCP - General Family Practice 04/26/16 documented as of this encounter
--- OUTSIDE RECORDS SUMMARY | 2024-07-06 15:54 | XMS_ITS | Encounter Summary ---
Author Organization [facility] Address [address] [place] [address] Care Team Providers Care Grinder Set Up Operator Name Role Phone Nando Briscoe MD Primary Care Provider [phone] Reason for Referral * Radiology Services (Routine) - Closed Specialty Diagnoses / Procedures Referred By Contac t Referred To Contact Diagnoses Encounter for screening for malformation Procedures US OB LTD 1 OR MORE FETUS + TV CHG US UTERUS LIMITED 1/> FETUSES CHG US PREG UTERUS REAL TIME W/IMAGE DCMTN TRANSAshlee Bang MD [address] [address] [facility] Maternal And [facility] [address] [place] [address] Referral ID Status Reason Start Date Expiration Date Visits Re quested Visits Authorized [id number] Closed 03/19/2024 04/19/2025 1 1 Reason for Visit * Radiology Services (Routine) - Closed Specialty Diagnoses / Procedures Referred By Contac t Referred To Contact Diagnoses Encounter for screening for malformation Procedures US OB LTD 1 OR MORE FETUS + TV CHG US UTERUS LIMITED 1/> FETUSES CHG US PREG UTERUS REAL TIME W/IMAGE DCMTN TRANSAshlee Bang MD [address] [place] [phone] [facility] Maternal And [facility] [address] [place] [address] Referral ID Status Reason Start Date Expiration Date Visits Re quested Visits Authorized [id number] Closed 03/19/2024 04/19/2025 1 1 Encounter Details Date Type Department Care Team (Latest Contact Info) Description 03/28/2024 10:23 AM CDT - 03/28/2024 11:59 PM CDT Hospital Encounter [facility] [place] [facility] Maternal and [facility] [address] [place] [address] Ashlee Prabhakar MD [address] [facility] 162 [facility] [address] [place] [phone] Discharge Disposition: Home or Self Care Social [...] st Contact Info) Description 07/15/2024 1:00 PM HEALTH CONSULTANT Appointment [facility] [place] [facility] Maternal and [facility] [address] [place] [address] Davian Gonzalez MD [address] [facility] [address] [place] [phone] documented as of this encounter Procedures Procedure Name Priority Date/Time Associated Diagnosis Comments US OB LTD 1 OR MORE FETUS + TV Routine 03/28/2024 11:01 AM CDT Encounter for screening for malformation documented in this encounter Results * US OB LTD 1 OR MORE FETUS + TV (03/28/2024 11:01 AM CDT) Anatomical Region Laterality Modality Pelvis Ultrasound 03/28/2024 10:3 6 AM CDT Narrative 03/28/2024 11:04 AM CDT STL LIMITED ----- Pat. Name: YANA ALLAN Study Date: 03/28/2024 10:36am Pat. NO: [id number] Referring ??MD: ASHLEE PRABHAKAR MD Site: [place] [facility] Public Health Nursing: Sherry Pak RDMS : 1990 Age: 33 ----- INDICATION ----- Previous Miscarriage ? @ 18 weeks G3 Maternal Obesity (BMI>40) Complicating Maternal Care for Low Transverse Scar from ? x 2 Previous Delivery (Previous ) CODING ----- Diagnoses ? Z3A.16: Weeks of gestation ?O34.211: Maternal care for low transverse scar from previous delivery ?O99.212: Obesity complicating ?O09.292: Supervision of with other poor reproductive or obstetric history Procedures ?27108: Ultrasound, uterus, real time with image documentation, limited one or more fetuses ?53585: Ultrasound, uterus, real time with image documentation HISTORY ----- OB History ? 4. Para 2 ?Hu children born living (T) 2. Miscarriages 1 ?T2A1L2 MATERNAL ASSESSMENT ----- Physical Exam ? Weight 109 kg. BMI 42.53 kg/m?? METHOD ----- Transabdominal and transvaginal ultrasound examination ----- Hu . Number of fetuses: 1 DATING ----- Method of dating: based on stated JAMARCUS GA by prior assessment 16 w + 6 d JAMARCUS by prior assessment: 09/06/2024 Assigned: based on stated JAMARCUS, selected on 03/28/2024 Assigned GA 16 w + 6 d Assigned JAMARCUS: 09/06/2024 GENERAL EVALUATION ----- Cardiac activity present. FHR 145 bpm. movements: present. Presentation: breech Placenta: Placental site: anterior. Placental hbuh-zo-mvdxwerk os distance 53 mm Umbilical cord: Cord vessels: 3 vessel cord. Insertion site: placental insertion: normal Amniotic fluid: Amount of AF: normal amount. MVP 5.1 cm ANATOMY ----- The following structures appear normal: Head / Neck ? Cranium. Heart / Thorax ?Cardiac rhythm. Abdomen ? Stomach. Bladder. MATERNAL STRUCTURES ----- Cervix ?Normal ?Approach - Transvaginal: Cervical length 38.0 mm COMMENT ----- Patient's name and date of were verified by the band attacher prior to the exam. Kamila Garcia was present for the transvaginal ultrasound and served as a biofuels engineering manager. IMPRESSION ----- IUP at 16w 6d breech presentation Normal amniotic fluid volume, MVP 5.1 cm Normal Transvaginal cervical length, 38 mm with no funneling Recommendations: - Serial cervical lengths can be performed if indicated every 2 weeks 16-23 weeks - Recommend detailed anatomic survey at 20 weeks Procedure Note Victoria Carolina MD - 03/28/2024 STL LIMITED ----- Pat. Name:Jose Luis ALLAN Date:03/28/2024 10:36am Pat. NO: [id number] :ASHLEE PRABHAKAR MD [facility]Sherry ZamudioReva TY :1990Age:33 ----- INDICATION ----- Previous Miscarriage @ 18 weeks G3 Maternal Obesity (BMI>40) Complicating Maternal Care for Low Transverse Scar from x 2 Previous Delivery (Previous ) CODING ----- Diagnoses Z3A.16: Weeks of gestation O34.211: Maternal care for low transverse scarfrom previous delivery O99.212: Obesity complicating O09.292: Supervision of with other poorreproductive or obstetric history Procedures 60943: Ultrasound, uterus, real time withimage documentation, limited one or more fetuses 89392: Ultrasound, uterus, real time withimage documentation HISTORY ----- OB History 4. Para 2 Hu children born living (T) 2. Miscarriages1 T2A1L2 MATERNAL ASSESSMENT ----- Physical Exam Weight 109 kg. BMI 42.53 kg/m?? METHOD ----- Transabdominal and transvaginal ultrasound examination ----- Hu . Number of fetuses: 1 DATING ----- Method of dating:based on stated JAMARUCS GA by prior irexrbavro40 w + 6 d JAMARCUS by prior assessment:09/06/2024 Assigned:based on stated JAMARCUS, selected on 03/28/2024 Assigned GA16 w + 6 d Assigned JAMARCUS:09/06/2024 GENERAL EVALUATION ----- Cardiac activity present. FHR 145 bpm. movements: present.Presentation: breech Placenta: Placental site: anterior. Placental pjyw-ja-dhxngdpw os eqvyvnmc07 mm Umbilical cord: Cord vessels: 3 vessel cord. Insertion site: placentalinsertion: normal Amniotic fluid: Amount of AF: normal amount. MVP 5.1 cm ANATOMY ----- The following structures appear normal: Head / Neck Cranium. Heart / Thorax Cardiac rhythm. Abdomen Stomach. Bladder. MATERNAL STRUCTURES ----- Cervix Normal Approach - Transvaginal: Cervical length 38.0 mm COMMENT ----- Patient's name and date of were verified by the band attacher prior tothe exam. Kamila Garcia was present for the transvaginal ultrasound and served as achaperone. IMPRESSION ----- IUP at 16w 6d breech presentation Normal amniotic fluid volume, MVP 5.1 cm Normal Transvaginal cervical length, 38 mm with no funneling Recommendations: - Serial cervical lengths can be performed if indicated every 2 eopsg13-49 weeks - Recommend detailed anatomic survey at 20 weeks Ashlee Prabhakar MD ORDERABLES documented in this encounter Visit Diagnoses Diagnosis Encounter for screening for malformation documented in this encounter Care Teams Grinder Set Up Operator Relationship Specialty Start Date End Date Nando Briscoe MD [address] [place] [phone] PCP - General Family Practice 04/26/16 documented as of this encounter
--- OUTSIDE RECORDS SUMMARY | 2024-07-06 15:54 | XMS_ITS | Encounter Summary ---
Author Organization [facility] Address [address] [facility] Attn: Epic Prelude ADT IAN BOB [address] Care Team Providers Care Tile Erector Name Role Phone Nando Briscoe MD Primary Care Provider [phone] Encounter Details Date Type Department Care Team (Latest Contact Info) Description 09/10/2020 Travel Social History Tobacco Use Types Packs/Day [...] have Coronavirus / COVID-19? No / Unsure 09/10/2020 8:09 AM FERRY TERMINAL SUPERVISOR documented as of this encounter Plan of Treatment Upcoming Encounters Date Type Department Care Team (Late st Contact Info) Description 07/15/2024 1:00 PM FERRY TERMINAL SUPERVISOR Appointment [facility] Maternal and Health [facility] [address] [place] [address] Davian Gonzalez MD [address] [facility] [address] [place] [address] documented as of this encounter Visit Diagnoses Not on filedocumented in this encounter Care Teams Tile Erector Relationship Specialty Start Date End Date Nando Briscoe MD [address] [place] [phone] PCP - General Family Practice 04/26/16 documented as of this encounter
--- OUTSIDE RECORDS SUMMARY | 2024-07-06 15:54 | XMS_ITS | Encounter Summary ---
Author Organization [facility] Address [address] [place] [address] Care Team Providers Care Felt Strip Finisher Name Role Phone Nando Briscoe MD Primary Care Provider [phone] Reason for Referral * Outpatient Services (Routine) - Closed Specialty Diagnoses / Procedures Referred By Contac t Referred To Contact Diagnoses size accords with dates, second trimester Procedures US OB FOLLOW UP PER FETUS Ashlee Richter MD [address] [address] Referral ID Status Reason Start Date Expiration Date Visits Re quested Visits Authorized [id number] Closed 08/18/2016 09/18/2017 1 1 NG PAN TENDER Reason for Visit * Auth/Cert Specialty Diagnoses / Procedures Referred By Contac t Referred To Contact Radiology [facility] Maternal And [facility] [address] [place] [address] Referral ID Status Reason Start Date Expiration Date Visits Re quested Visits Authorized [id number] 1 1 Encounter Details Date Type Department Care Team (Latest Contact Info) Description 09/19/2016 2:30 PM MIXING PAN TENDER - 09/19/2016 11:59 PM MIXING PAN TENDER Hospital Encounter [facility] Maternal and Health [facility] [address] [place] [address] Ashlee Richter MD [address] [address] Discharge Disposition: Home or Self Care Social History Tobacco Use Types Packs/Day Years Used Date Smoking Tobacco: Never Assessed Sex and Gender Information Value Date Recorded Sex Assigned at Not on file Gender Identity Not on file Sexual Orientation Not on file documented as of this encounter Progress Notes * Kamila Olvera RN - 09/19/2016 3:36 PM CST Telehealth Visit This is a telehealth visit and the patient is being seen on 09/19/2016 viaTelehealth Services with bi-directional real time audio/video. Patient and met with Dr. France to discuss ultrasound findings. The ultrasound discovered an enlarged liver and Dr. Castle would like patient to come to [place] to get another ultrasound and a better look at the liver. She made an appt for 09/22/16 at 9:45am. Conference started at 1525 and ended at 1530. Kamila Olvera RN [place] PAN TENDER documented in this encounter Plan of Treatment Upcoming Encounters Date Type Department Care Team (Late st Contact Info) Description 07/15/2024 1:00 PM MIXING PAN TENDER Appointment [facility] Maternal and Health [facility] [address] [place] [phone] Davian Gonzalez MD [address] [facility] [address] [address] documented as of this encounter Procedures Procedure Name Priority Date/Time Associated Diagnosis Comments US OB FOLLOW UP PER FETUS Routine 09/19/2016 3:18 PM MIXING PAN TENDER size accords with dates, second trimester documented in this encounter Results * US OB FOLLOW UP PER FETUS (09/19/2016 3:18 PM MIXING PAN TENDER) Anatomical Region Laterality Modality Pelvis Ultrasound 09/19/2016 2:35 PM MIXING PAN TENDER Impressions 09/19/2016 3:34 PM MIXING PAN TENDER IMPRESSION ----- Appropriate interval growth EFW = 50th %'ile The AP diameters of the renal pelvis are normal today measuring 5 mm on the right and 3 mm on the left; however, there is grade 2 hydronephrosis of the right kidney; no hydronephrosis of the left kidney appreciated but that kidney is difficult to image in the current position There is also suspicion for hepatomegaly No other structural malformations or abnormalities noted AFV normal Patient counseled via webcam on the findings. Narrative 09/19/2016 3:34 PM MIXING PAN TENDER Follow Up Basic ----- Pat. Name: YANA ALLAN Study Date: 09/19/2016 2:35pm Pat. NO: [id number] Referring ??: ASHLEE RICHTER MD Site: [place] [facility] Attendant: Carolina Jimenes RDMS : 1990 Age: 26 ----- INDICATION ----- Maternal Obesity (bmi>30 but bmi<40) Pyelectasis CODING ----- Diagnosis ? O99.213: Obesity complicating . ?E66.8: Other obesity. ?O35.8XX0: Maternal care for other (suspected) abnormality and damage: Unspecified Fetus. ?Z3A.28: Weeks Gestation of . Procedures ?69329: OB follow-up/Target per fetus. HISTORY ----- OB History ?: 1. METHOD ----- Transabdominal ultrasound examination. ----- Hu . Number of fetuses: 1. DATING ----- LMP on: 03/04/2016 Cycle: regular cycle GA by LMP 28 w + 3 d JAMARCUS by LMP: 12/09/2016 Ultrasound examination on: 09/19/2016 GA by U/S based upon: AC, BPD, EFW, Femur, HC GA by U/S 28 w + 4 d JAMARCUS by U/S: 12/08/2016 Assigned: Dating performed on 04/28/2016, based on the LMP Assigned GA 28 w + 3 d Assigned JAMARCUS: 12/09/2016 BIOMETRY ----- Main Biometry: BPD ?70.7 ? mm ?36% ? 28w 3d ? Hadlock HC ? 265.4 ?mm ?32% ? 28w 6d ? Hadlock AC ? 257.3 ?mm ?84% ? 29w 6d ? Hadlock Femur ?50.5 ? mm ?8% ?27w 1d ? Hadlock Weight Calculation: EFW ?1,284 ?g ? 50% ? 28w 3d ? Hadlock EFW (lb,oz) ?2 lb ? oz ? 13 Calculated by ?Hadlock ([id number]) Proportionality Ratios: HC / AC ?1.03 ? 16% ?Nicolaides FL / BPD ? 0.71 ? FL / AC ?0.20 ? GENERAL EVALUATION ----- Cardiac activity: present. FHR 132 bpm. movements: visualized. Presentation: breech. Placenta: Placental site: posterior. Umbilical cord: Cord vessels: 3 vessel cord. Cord insertion: placental insertion: normal. Amniotic fluid: MVP 8.2 cm. MARGOT 20.7 cm. Q1 5.4 cm, Q2 1.7 cm, Q3 8.2 cm, Q4 5.4 cm. ANATOMY ----- The following structures were visualized with normal appearance: Head: Head shape and size appear normal. Brain: Lateral cerebral ventricles, midline falx and cavum septi pellucidi appear normal. Thorax: No thoracic abnormalities detected. Heart: Four chamber view of the heart and outflow tracts appear normal. Stomach: Stomach size and situs appear normal. Bladder: size and shape. Lower extremities: Both lower extremities are seen and appear normal. The following structures were visualized: Kidneys. Upper extremities. Other findings: Face: previously seen. Spine: previously seen. FOLLOW-UP ----- A targeted ultrasound scheduled at [facility] on to confirm findings; if indicated consultation will also be performed at that time. Procedure Note Davian Gonzalez MD - 09/19/2016 Follow Up Basic ----- Pat. Name:Jose Luis ALLAN Date:09/19/2016 2:35pm Pat. NO: [id number] MD:ASHLEE RICHTER MD [facility]:Carolina Jimenes RDMS :1990Age:26 ----- INDICATION ----- Maternal Obesity (bmi>30 but bmi<40) Pyelectasis CODING ----- Diagnosis O99.213: Obesity complicating . E66.8: Other obesity. O35.8XX0: Maternal care for other (suspected) abnormality and damage: Unspecified Fetus. Z3A.28: Weeks Gestation of . Procedures 78283: OB follow-up/Target per fetus. HISTORY ----- OB History : 1. METHOD ----- Transabdominal ultrasound examination. ----- Hu . Number of fetuses: 1. DATING ----- LMP on:03/04/2016 Cycle:regular cycle GA by LMP28 w + 3 d JAMARCUS by LMP:12/09/2016 Ultrasound examination on:09/19/2016 GA by U/S based upon:AC, BPD, EFW, Femur, HC GA by U/S28 w + 4 d JAMARCUS by U/S:12/08/2016 Assigned:Dating performed on 04/28/2016, based on the LMP Assigned GA28 w + 3 d Assigned JAMARCUS:12/09/2016 BIOMETRY ----- Main Biometry: BPD 70.7 mm 36% 28w 3dHadlock HC 265.4 mm 32% 28w 6dHadlock AC 257.3 mm 84% 29w 6dHadlock Femur 50.5 mm 8% 27w 1dHadlock Weight Calculation: EFW 1,284 g 50% 28w 3dHadlock EFW (lb,oz) 2 lb oz 13 Calculated by Maurice (YEI-IH-ZI-FL) Proportionality Ratios: HC / AC 1.03 16%Nicolaides FL / BPD 0.71 FL / AC 0.20 GENERAL EVALUATION ----- Cardiac activity: present. FHR 132 bpm. movements: visualized. Presentation: breech. Placenta: Placental site: posterior. Umbilical cord: Cord vessels: 3 vessel cord. Cord insertion: placentalinsertion: normal. Amniotic fluid: MVP 8.2 cm. MARGOT 20.7 cm. Q1 5.4 cm, Q2 1.7 cm, Q3 8.2 cm,Q4 5.4 cm. ANATOMY ----- The following structures were visualized with normal appearance: Head: Head shape and size appear normal. Brain: Lateral cerebral ventricles, midline falx and cavum septi pellucidiappear normal. Thorax: No thoracic abnormalities detected. Heart: Four chamber view of the heart and outflow tracts appear normal. Stomach: Stomach size and situs appear normal. Bladder: size and shape. Lower extremities: Both lower extremities are seen and appear normal. The following structures were visualized: Kidneys. Upper extremities. Other findings: Face: previously seen. Spine: previously seen. FOLLOW-UP ----- A targeted ultrasound scheduled at [facility] on to confirmfindings; if indicated consultation will also be performed at that time. IMPRESSION IMPRESSION ----- Appropriate interval growth EFW = 50th %'ile The AP diameters of the renal pelvis are normal today measuring 5 mm onthe right and 3 mm on the left; however, there is grade 2 hydronephrosis of the right kidney; no hydronephrosis of the left kidneyappreciated but that kidney is difficult to image in the current position There is also suspicion for hepatomegaly No other structural malformations or abnormalities noted AFV normal Patient counseled via webcam on the findings. Ashlee Richter MD ORDERABLES documented in this encounter Visit Diagnoses Diagnosis size accords with dates, second trimester documented in this encounter Care Teams Felt Strip Finisher Relationship Specialty Start Date End Date Nando Briscoe MD [address] [place] [phone] PCP - General Family Practice 04/26/16 documented as of this encounter
--- OUTSIDE RECORDS SUMMARY | 2024-07-06 15:54 | XMS_ITS | Encounter Summary ---
Author Organization [facility] Address [address] [place] [address] Care Team Providers Care Jewelry Polisher Name Role Phone Nando Briscoe MD Primary Care Provider [phone] Reason for Referral * Outpatient Services (Routine) - Closed Specialty Diagnoses / Procedures Referred By Contac t Referred To Contact Radiology Diagnoses Maternal obesity affecting , antepartum Ultrasound recheck of pyelectasis, antepartum, not applicable or unspecified fetus Procedures US OB FOLLOW UP PER FETUS Davian Gonzalez MD [address] [address] [facility] Maternal And [facility] [address] [place] [address] Referral ID Status Reason Start Date Expiration Date Visits Re quested Visits Authorized [id number] Closed 09/19/2016 10/20/2017 1 1 HOSTESS Reason for Visit * Auth/Cert Specialty Diagnoses / Procedures Referred By Contac t Referred To Contact Radiology [facility] Maternal And [facility] [address] [place] [address] Referral ID Status Reason Start Date Expiration Date Visits Re quested Visits Authorized [id number] 1 1 Encounter Details Date Type Department Care Team (Latest Contact Info) Description 09/22/2016 9:45 AM MEAT HOSTESS - 09/22/2016 11:59 PM MEAT HOSTESS Hospital Encounter [facility] Maternal and Ground [address] [place] [phone] Davian Gonzalez MD [address] [place] [address] Discharge Disposition: Home or Self Care Social History Tobacco Use Types Packs/Day Years Used Date Smoking Tobacco: Never Assessed Sex and Gender Information Value Date Recorded Sex Assigned at Not on file Gender Identity Not on file Sexual Orientation Not on file documented as of this encounter Progress Notes * Bonnie Verdin RN - 09/23/2016 6:13 PM CST Images from the original note were not included. [facility] CARE TEAM [address] [facility] [place] [address] CARE TEAM ENROLLMENT CONSULT NOTE To view Reports/Consultation notes please visit the below tabs in Chart Review: Ultrasound Reports-???Images?? tab MFM Consultation (if applicable)- Media tab Pediatric Specialty Consultation- Notes tab PRIMARY FCT COORDINATOR: Bonnie Verdin RN PATIENT DEMOGRAPHICS: PATIENT NAME: Yana Allan DATE OF : 1990 PATIENT ESTIMATED DUE DATE: 12/09/16 /PARA: SUPPLY CHAIN PROGRAM MANAGER: Dr. [place] DIAGNOSIS: US findings 09/22/16 of bilateral pyelectasis (AP diameters of both kidneys 7-8mm) with bilateral grade 2 hydronephrosis, AFV normal DELIVERY PLAN: TBD- anticipate delivery at [place] per Dr [place] ENROLLMENT NOTE: Referral to the Care Team by Dr Gonzalez . Met with Yana Allan for initial consult on 09/22/16 at [facility]. The Care Team was explained and the role of the Nurse Coordinators was reviewed. Pt was receptive to being followed by the team and contact information was given. Ultrasound findings and the following plan of care was reviewed with patient by Dr Gonzalez. Care Appointment: 1. Co-mangangement of this patient by [facility] and Dr. [place] 2. Continue routine care appointments with Dr. [place]ter Surveillance: ([facility]) 1. Follow up basic ultrasound completed 09/19/16 at [facility]; target US completed 09/22/16 at [facility] 2. Next ultrasound for growth: Scheduled for 11/03/16 at [facility] Consultations: 1. consultation with [facility], Dr Park to be coordinate to accommodate parents scheduling needs. Dr Richter was updated per Dr. Gonzalez. Yana was reminded to call Dr Richter's office with any medical issues or concerns. All Yana Allan questions were addressed by Dr Gonzalez. Patient states understanding of information provided today. FCT contact information reviewed. Will continue to follow and support this family via FCT. Bonnie Verdin, RNC-MNN, BSN Nurse Coordinator, Care Team [phone] HOSTESS documented in this encounter Plan of Treatment Upcoming Encounters Date Type Department Care Team ([facility] Contact Info) Description 07/15/2024 1:00 PM MEAT HOSTESS Appointment [facility] Maternal and Health [facility] [address] [place] [address] Davian Gonzalez MD [address] [address] documented as of this encounter Procedures Procedure Name Priority Date/Time Associated Diagnosis Comments US OB FOLLOW UP PER FETUS Routine 09/22/2016 11:34 AM MEAT HOSTESS Maternal obesity affecting , antepartum Ultrasound recheck of pyelectasis, antepartum, not applicable or unspecified fetus documented in this encounter Results * US OB FOLLOW UP PER FETUS (09/22/2016 11:34 AM MEAT HOSTESS) Anatomical Region Laterality Modality Pelvis Ultrasound 09/22/2016 10:1 4 AM MEAT HOSTESS Impressions 09/22/2016 11:06 AM MEAT HOSTESS IMPRESSION ----- A limited ultrasound performed today as a follow-up to ultrasound 3 days ago. The liver appears normal. Bilateral pyelectasis noted (AP diameters of both kidneys 7-8 mm) with bilateral grade 2 hydronephrosis AFV normal While the need for eventual surgery is low, follow-up is indicated. Referral made to care team. Letter to follow. Narrative 09/22/2016 11:06 AM MEAT HOSTESS Target Study ----- Pat. Name: YANA ALLAN Study Date: 09/22/2016 10:14am Pat. NO: [id number] Referring ??MD: ASHLEE RICHTER MD Site: [facility] Instructor: Alessandra Laureano RDMS : 1990 Age: 26 ----- INDICATION ----- Known or Suspected anomaly ? hepatomegaly Pyelectasis ?Right side Maternal Obesity (bmi>30 but bmi<40) CODING ----- Diagnosis ? O35.8XX0: Maternal care for suspected abnormality: Unspecified Fetus. ?O35.8XX0: Maternal care for other (suspected) abnormality and damage: Unspecified Fetus. ?O99.213: Obesity complicating . ?E66.8: Other obesity. ?Z3A.28: Weeks Gestation of . Procedures ?25650: OB follow-up/Target per fetus. HISTORY ----- OB History ?: 1. MATERNAL ASSESSMENT ----- Physical Exam ? Weight 95 kg. BMI 37.20 kg/m?. METHOD ----- Transabdominal ultrasound examination. ----- Hu . Number of fetuses: 1. DATING ----- LMP on: 03/04/2016 Cycle: regular cycle GA by LMP 28 w + 6 d JAMARCUS by LMP: 12/09/2016 Assigned: Dating performed on 04/28/2016, based on the LMP Assigned GA 28 w + 6 d Assigned JAMARCUS: 12/09/2016 GENERAL EVALUATION ----- Cardiac activity: present. FHR 133 bpm. Presentation: breech. Placenta: posterior. Amniotic fluid: normal amount. MARGOT 17.7 cm. Q1 5.4 cm, Q2 4.6 cm, Q3 3.4 cm, Q4 4.2 cm. ANATOMY ----- The following structures were visualized with normal appearance: Thorax ?Diaphragm. Heart ? Cardiac rhythm. Stomach ? Stomach size and situs appear normal. Bladder ? size and shape. The following structures were abnormal: Kidneys ? Right kidney: Hydronephrosis of the right kidney. Left kidney: Pyelectasis of the left kidney. FOLLOW-UP ----- A follow-up ultrasound scheduled in 5-6 weeks at [facility]. Procedure Note Davian Gonzalez MD - 09/22/2016 Target Study ----- Pat. Name:Jose Luis ALLAN Date:09/22/2016 10:14am Pat. NO: [id number] MD:ASHLEE RICHTER MD [facility]Alessandra Laureano RDMS :1990Age:26 ----- INDICATION ----- Known or Suspected anomaly hepatomegaly Pyelectasis Right side Maternal Obesity (bmi>30 but bmi<40) CODING ----- Diagnosis O35.8XX0: Maternal care for suspected fetalabnormality: Unspecified Fetus. O35.8XX0: Maternal care for other (suspected) abnormality and damage: Unspecified Fetus. O99.213: Obesity complicating . E66.8: Other obesity. Z3A.28: Weeks Gestation of . Procedures [id number]: OB follow-up/Target per fetus. HISTORY ----- OB History : 1. MATERNAL ASSESSMENT ----- Physical Exam Weight 95 kg. BMI 37.20 kg/m?. METHOD ----- Transabdominal ultrasound examination. ----- Hu . Number of fetuses: 1. DATING ----- LMP on:03/04/2016 Cycle:regular cycle GA by LMP28 w + 6 d JAMARCUS by LMP:12/09/2016 Assigned:Dating performed on 04/28/2016, based on the LMP Assigned GA28 w + 6 d Assigned JAMARCUS:12/09/2016 GENERAL EVALUATION ----- Cardiac activity: present. FHR 133 bpm. Presentation: breech. Placenta: posterior. Amniotic fluid: normal amount. MARGOT 17.7 cm. Q1 5.4 cm, Q2 4.6 cm, Q3 3.4cm, Q4 4.2 cm. ANATOMY ----- The following structures were visualized with normal appearance: Thorax Diaphragm. Heart Cardiac rhythm. Stomach Stomach size and situs appear normal. Bladder size and shape. The following structures were abnormal: Kidneys Right kidney: Hydronephrosis of the right kidney.Left kidney: Pyelectasis of the left kidney. FOLLOW-UP ----- A follow-up ultrasound scheduled in 5-6 weeks at [facility]. IMPRESSION IMPRESSION ----- A limited ultrasound performed today as a follow-up to ultrasound 3 daysago. The liver appears normal. Bilateral pyelectasis noted (AP diameters of both kidneys 7-8 mm) withbilateral grade 2 hydronephrosis AFV normal While the need for eventual surgery is low, follow-up is indicated.Referral made to care team. Letter to follow. Davian Gonzalez MD US ORDERABLES documented in this encounter Visit Diagnoses Diagnosis Maternal obesity affecting , antepartum Ultrasound recheck of pyelectasis, antepartum, not applicable or unspecified fetus documented in this encounter Care Teams Jewelry Polisher Relationship Specialty Start Date End Date Nando Briscoe MD [address] [place] [phone] PCP - General Family Practice 04/26/16 documented as of this encounter
--- OUTSIDE RECORDS SUMMARY | 2024-07-06 15:54 | XMS_ITS | Encounter Summary ---
Author Organization [facility] Address [address] [place] [address] Care Team Providers Care Probation And Parole Officer Name Role Phone Nando Briscoe MD Primary Care Provider [phone] Reason for Referral * Radiology Services (Routine) - Closed Specialty Diagnoses / Procedures Referred By Contac t Referred To Contact Diagnoses Maternal obesity syndrome in third trimester Previous section Maternal asthma Procedures US OB FOLLOW UP PER FETUS Kathe Mcdermott MD NO ADDRESS ON FILE Referral ID Status Reason Start Date Expiration Date V isits Requested Visits Authorized [id number] Closed [facility] CTS 10/19/2020 11/19/2021 1 1 Reason for Visit * Auth/Cert Specialty Diagnoses / Procedures Referred By Contac t Referred To Contact Radiology [facility] [address] [place] [address] Referral ID Status Reason Start Date Expiration Date Visits Re quested Visits Authorized [id number] 1 1 Encounter Details Date Type Department Care Team (Latest Contact Info) Description 11/30/2020 9:54 AM CDT - 11/30/2020 11:59 PM CDT Hospital Encounter [facility] M[facility] and [facility] [address] [place] [address] Kathe Mcdermott MD NO ADDRESS ON FILE Discharge Disposition: Home or Self Care Social [...] st Contact Info) Description 07/15/2024 1:00 PM GIS GEOGRAPHER Appointment [facility] Maternal and Health [facility] [address] [place] [address] Davian Gonzalez MD [address] [facility] [address] [place] [address] documented as of this encounter Procedures Procedure Name Priority Date/Time Associated Diagnosis Comments US OB FOLLOW UP PER FETUS Routine 11/30/2020 10:18 AM CDT Maternal obesity syndrome in third trimester Previous section Maternal asthma documented in this encounter Results * US OB FOLLOW UP PER FETUS (11/30/2020 10:18 AM CDT) Anatomical Region Laterality Modality Pelvis Ultrasound 11/30/2020 10:1 4 AM CDT Impressions 11/30/2020 10:29 AM CDT IMPRESSION ----- Hu intrauterine with positive cardiac activity. The fetus is in a breech presentation. The fetus shows an adequate pattern of growth with an overall mean estimated weight at the 42nd percentile for the assigned gestational age and an abdominal circumference at the 55th percentile. The anatomic survey is limited by advanced gestational age, lie and position. No new findings are identified within the limitations of today's sonogram. The amniotic fluid volume appears normal for gestational age with an amniotic fluid index of 15.1 cm. Recommendations: 1. Consider follow-up sonogram as clinically indicated. Narrative 11/30/2020 10:29 AM CDT STL FOLLOW UP ----- Name: YANA ALLAN Study Date: 11/30/2020 10:14am Pat. NO: [id number] Referring ??MD: ASHLEE RICHTER MD Site: [facility]: [id number] : 1990 Age: 30 ----- INDICATION ----- Maternal Obesity (bmi greater than 30 but bmi less than 40) Previous ? x 1 Maternal Asthma History of PTD ? @ 36 Weeks, Decels CODING ----- Diagnoses ? O99.213: Obesity complicating ?E66.8: Other obesity ?O34.21: Maternal care for scar from previous delivery ?O99.513: Diseases of the respiratory system complicating ?O09.213: Supervision of with history of pre-term labor ?Z3A.34: Weeks Gestation of Procedures ?40533: OB follow-up/Target per fetus HISTORY ----- OB History ? 2. Para 1 ?Hu children born living (P) 1 ?P1L1 MATERNAL ASSESSMENT ----- Physical Exam ? Weight 100 kg. BMI 38.98 kg/m? METHOD ----- Transabdominal ultrasound examination ----- Hu . Number of fetuses: 1 DATING ----- GA by prior assessment 34 w + 4 d JAMARCUS by prior assessment: 01/07/2021 Ultrasound examination on: 11/30/2020 GA by U/S based upon: AC, BPD, EFW, Femur, HC GA by U/S 34 w + 4 d JAMARCUS by U/S: 01/07/2021 Method of dating: Restore dating from previous exam Assigned: Dating performed on 08/17/2020, based on the external assessment Assigned GA 34 w + 4 d Assigned JAMARCUS: 01/07/2021 BIOMETRY ----- BPD ?85.0 ? mm ?34w 2d ?40% ?Hadlock HC ? 327.5 ?mm ?37w 1d ?80% ?Hadlock AC ? 306.1 ?mm ?34w 4d ?55% ?Hadlock Femur ?63.4 ? mm ?32w 5d ?7% ?Hadlock HC / AC ?1.07 ? 70% ?Nicolaides Weight Calculation: EFW ? 2,433 ? g ? 34w 2d ?42% ?Hadlock EFW (lb,oz) ? 5 lb 6 ?oz EFW by ?Hadlock (HC-AC-FL) Extremities / Bony Struc Biometry: FL / BPD ?0.75 FL / HC ? 0.19 FL / AC ? 0.21 GENERAL EVALUATION ----- Cardiac activity present. FHR 149 bpm. movements: present. Presentation: breech Placenta: Placental site: posterior Umbilical cord: Cord vessels: 3 vessel cord. Insertion site: placental insertion: normal Amniotic fluid: Amount of AF: normal amount. MVP 4.5 cm. MARGOT 15.1 cm. Q1 4.5 cm, Q2 3.8 cm, Q3 4.1 cm, Q4 2.7 cm ANATOMY ----- The following structures appear normal: Head / Neck ? Cranium. Midline falx. Cavum septi pellucidi. Heart / Thorax ?Cardiac rhythm. ?Diaphragm. Abdomen ? Stomach. Kidneys. Bladder. sex: female. COMMENT ----- Patient's name and date of were verified by the meat lugger prior to the exam FOLLOW-UP ----- See above. Procedure Note Kathe Mcdermott MD - 11/30/2020 STL FOLLOW UP ----- Sakshi. Name:Jose Luis ALLAN Date:11/30/2020 10:14am Pat. NO: [id number] MD:ASHLEE RICHTER MD [facility][id number] :1990Age:30 ----- INDICATION ----- Maternal Obesity (bmi greater than 30 but bmi less than 40) Previous x 1 Maternal Asthma History of PTD @ 36 Weeks, Decels CODING ----- Diagnoses O99.213: Obesity complicating E66.8: Other obesity O34.21: Maternal care for scar from previouscesarean delivery O99.513: Diseases of the respiratory systemcomplicating O09.213: Supervision of with history ofpre-term labor Z3A.34: Weeks Gestation of Procedures 02849: OB follow-up/Target per fetus HISTORY ----- OB History 2. Para 1 Hu children born living (P) 1 P1L1 MATERNAL ASSESSMENT ----- Physical Exam Weight 100 kg. BMI 38.98 kg/m? METHOD ----- Transabdominal ultrasound examination ----- Hu . Number of fetuses: 1 DATING ----- GA by prior [id number] w + 4 d JAMARCUS by prior assessment:01/07/2021 Ultrasound examination on:11/30/2020 GA by U/S based upon:AC, BPD, EFW, Femur, HC GA by U/S34 w + 4 d JAMARCUS by U/S:01/07/2021 Method of dating:Restore dating from previous exam Assigned:Dating performed on 08/17/2020, based on the externalassessment Assigned GA34 w + 4 d Assigned JAMARCUS:01/07/2021 BIOMETRY ----- BPD 85.0 mm 34w 2d 40%Hadlock HC 327.5 mm 37w 1d 80%Hadlock AC 306.1 mm 34w 4d 55%Hadlock Femur 63.4 mm 32w 5d 7%Hadlock HC / AC 1.07 70%Nicolaides Weight Calculation: EFW 2,433 g 34w 2d42% Hadlock EFW (lb,oz) 5 lb 6 oz EFW by Hadlock (HC-AC-FL) Extremities / Bony Struc Biometry: FL / BPD 0.75 FL / HC 0.19 FL / AC 0.21 GENERAL EVALUATION ----- Cardiac activity present. FHR 149 bpm. movements: present.Presentation: breech Placenta: Placental site: posterior Umbilical cord: Cord vessels: 3 vessel cord. Insertion site: placentalinsertion: normal Amniotic fluid: Amount of AF: normal amount. MVP 4.5 cm. MARGOT 15.1 cm. Q14.5 cm, Q2 3.8 cm, Q3 4.1 cm, Q4 2.7 cm ANATOMY ----- The following structures appear normal: Head / Neck Cranium. Midline falx. Cavum septi pellucidi. Heart / Thorax Cardiac rhythm. Diaphragm. Abdomen Stomach. Kidneys. Bladder. sex: female. COMMENT ----- Patient's name and date of were verified by the meat lugger prior tothe exam FOLLOW-UP ----- See above. IMPRESSION ----- Hu intrauterine with positive cardiac activity. The fetus is in a breech presentation. The fetus shows an adequate pattern of growth with an overall meanestimated weight at the 42nd percentile for the assigned gestational age and an abdominal circumference at the 55th percentile. The anatomic survey is limited by advanced gestational age, fetallie and position. No new findings are identified within the limitations of today's sonogram. The amniotic fluid volume appears normal for gestational age with anamniotic fluid index of 15.1 cm. Recommendations: 1. Consider follow-up sonogram as clinically indicated. Kathe Mcdermott MD US ORDERABLES documented in this encounter Visit Diagnoses Diagnosis Maternal obesity syndrome in third trimester Previous section Other postprocedural status Maternal asthma Other current maternal conditions classifiable elsewhere, complicating , childbirth, or the puerperium, unspecified as to episode of care documented in this encounter Care Teams Probation And Parole Officer Relationship Specialty Start Date End Date Nando Briscoe MD [address] [place] [address] PCP - General Family Practice 04/26/16 documented as of this encounter
--- OUTSIDE RECORDS SUMMARY | 2024-07-06 15:54 | XMS_ITS | Encounter Summary ---
Author Organization [facility] Address [address] [facility] Attn: Epic Prelude ADT IAN BOB [address] Care Team Providers Care Hse Coordinator Name Role Phone Nando Briscoe MD Primary Care Provider [phone] Encounter Details Date Type Department Care Team (Latest Contact Info) Description 08/06/2020 Travel Social History Tobacco Use Types Packs/Day [...] have Coronavirus / COVID-19? No / Unsure 08/06/2020 2:07 PM MEDICINE AIDE documented as of this encounter Plan of Treatment Upcoming Encounters Date Type Department Care Team (Late st Contact Info) Description 07/15/2024 1:00 PM MEDICINE AIDE Appointment [facility] Maternal and Health [facility] [address] [place] [address] Davian Gonzalez MD [address] [facility] [address] [place] [address] documented as of this encounter Visit Diagnoses Not on filedocumented in this encounter Care Teams Hse Coordinator Relationship Specialty Start Date End Date Nando Briscoe MD [address] [place] [phone] PCP - General Family Practice 04/26/16 documented as of this encounter
--- OUTSIDE RECORDS SUMMARY | 2024-07-06 15:54 | XMS_ITS | Encounter Summary ---
Author Organization [facility] Address [address] [place] [address] Care Team Providers Care Product Architect Name Role Phone Nando Briscoe MD Primary Care Provider [phone] Encounter Details Date Type Department Care Team (Late st Contact Info) Description 04/09/2024 External Device Data STL ABSTRACTION Provider, [...] st Contact Info) Description 07/15/2024 1:00 PM CHARGE ACCOUNT IDENTIFICATION CLERK Appointment [facility] Maternal and Health [facility] [address] [facility] [address] [place] [address] Davian Gonzalez MD [address] [facility] [address] [place] [address] documented as of this encounter Visit Diagnoses Not on filedocumented in this encounter Care Teams Product Architect Relationship Specialty Start Date End Date Nando Briscoe MD [address] [place] [phone] PCP - General Family Practice 04/26/16 documented as of this encounter
--- OUTSIDE RECORDS SUMMARY | 2024-07-06 15:54 | XMS_ITS | Encounter Summary ---
Author Organization [facility] Address [address] [place] [address] Care Team Providers Care Locomotive Firer Name Role Phone Nando Briscoe MD Primary Care Provider [phone] Reason for Visit * Auth/Cert Specialty Diagnoses / Procedures Referred By Contac t Referred To Contact Radiology [facility] [address] [place] [address] Referral ID Status Reason Start Date Expiration Date Visits Re quested Visits Authorized [id number] 1 1 Encounter Details Date Type Department Care Team (Latest Contact Info) Description 07/21/2016 3:00 PM NUCLEAR CRITICALITY SAFETY ENGINEER - 07/21/2016 11:59 PM NUCLEAR CRITICALITY SAFETY ENGINEER Hospital Encounter [facility] [address] [place] [address] Ashlee Richter MD [address] [facility] [address] [facility] [address] [place] [phone] Discharge Disposition: Home or Self Care Social [...] st Contact Info) Description 07/15/2024 1:00 PM NUCLEAR CRITICALITY SAFETY ENGINEER Appointment [facility] [address] [place] [address] Davian Gonzalez MD [address] [facility] [place] [address] documented as of this encounter Procedures Procedure Name Priority Date/Time Associated Diagnosis Comments US OB 14+ WKS SINGLE GEST Routine 07/21/2016 4:21 PM NUCLEAR CRITICALITY SAFETY ENGINEER Encounter for anatomic survey documented in this encounter Results * US OB 14+ WKS SINGLE GEST (07/21/2016 4:21 PM NUCLEAR CRITICALITY SAFETY ENGINEER) Anatomical Region Laterality Modality Pelvis Ultrasound 07/21/2016 3:23 PM NUCLEAR CRITICALITY SAFETY ENGINEER Impressions 07/21/2016 6:43 PM NUCLEAR CRITICALITY SAFETY ENGINEER IMPRESSION ----- Single intrauterine Normal AFV Normal appearing anatomic evaluation -limited cardiac views movement is noted Follow up has been scheduled in 4 weeks for completion of anatomy. Thank you for allowing us to participate in the care of your patient. Narrative 07/21/2016 6:43 PM NUCLEAR CRITICALITY SAFETY ENGINEER Basic Study ----- Pat. Name: YANA ALLAN Study Date: 07/21/2016 3:23pm Pat. NO: [id number] Referring ??MD: ASHLEE RICHTER MD Site: [place] [employer] Set Up Operator: Carolina Jimenes RDMS : 1990 Age: 26 ----- INDICATION ----- Encounter for anatomic survey Maternal Obesity (bmi>30 but bmi<40) CODING ----- Diagnosis ? Z36: Encounter for screening of mother. ?Z3A.19: Weeks Gestation of . Procedures ?11561: OB >14 wks (1st Basic). HISTORY ----- OB History ?: 1. MATERNAL ASSESSMENT ----- Physical Exam ? Weight 86 kg. BMI 33.66 kg/m?. METHOD ----- Transabdominal ultrasound examination. ----- Hu . Number of fetuses: 1. DATING ----- LMP on: 03/04/2016 Cycle: regular cycle GA by LMP 19 w + 6 d JAMARCUS by LMP: 12/09/2016 Ultrasound examination on: 07/21/2016 GA by U/S based upon: AC, BPD, Femur, HC GA by U/S 20 w + 2 d JAMARCUS by U/S: 12/06/2016 Assigned: Dating performed on 04/28/2016, based on the LMP Assigned GA 19 w + 6 d Assigned JAMARCUS: 12/09/2016 BIOMETRY ----- Main Biometry: BPD ?47.6 ? mm ?72% ? 20w 3d ? Hadlock HC ? 173.9 ?mm ?46% ? 19w 6d ? Hadlock AC ? 154.9 ?mm ?71% ? 20w 5d ? Hadlock Femur ?32.5 ? mm ?53% ? 20w 1d ? Hadlock Cerebellum tr ?20.4 ? mm ?63% ? 20w 1d ? Palacio CM ? 4.8 ?mm ?45% ?Nicolaides Nuchal fold ?3.55 ? mm ? Humerus ?29.6 ? mm ?48% ? 19w 5d ? Valorie Weight Calculation: EFW ?350 ?g ? EFW (lb,oz) ?0 lb ? oz ? 12 Calculated by ?Hadlock ([id number]) Proportionality Ratios: HC / AC ?1.12 ? 20% ?Nicolaides FL / BPD ? 0.68 ? 36% ?Hadlock FL / AC ?0.21 ? 29% ?Hadlock Head / Face / Neck Biometry: Outer IOD ?32.60 ?mm ?48% ? 20w 6d ? Valorie Extremities / Bony Struc Biometry: Tibia ?27.0 ? mm ?54% ? 19w 5d ? Valroie ISAAC EVALUATION ----- Cardiac activity: present. FHR 138 bpm. movements: visualized. Presentation: cephalic. Placenta: Placental site: posterior. Umbilical cord: Cord vessels: 3 vessel cord. Cord insertion: placental insertion: normal 2.2 cm from placental edge. Amniotic fluid: MVP 7.4 cm. ANATOMY ----- The following structures were visualized with normal appearance: Head ?Head shape and size appear normal. Brain ? Cerebellum, choroid plexus, cisterna magna, lateral cerebral ventricles, midline falx and cavum septi ?pellucidi appear normal. Face ?Profile, orbits, nose, upper lip and palate appear normal. Neck Spine ? Cervical, thoracic, lumbar and sacral spine appear normal. Thorax ?No thoracic abnormalities detected. Heart ? Four chamber view of the heart appears normal. ?Right ventricular outflow tract. Bicaval view. Aortic arch view. Abdominal wall ?Abdominal wall and cord insertion appear normal. Stomach ? Stomach size and situs appear normal. GI tract ? stomach and intestines appear normal. Kidneys ? Kidneys appear normal bilaterally; Rt renal pelvis 3.3 mm, Lt renal pelvis 4.1mm. Bladder ? size and shape. Upper extrem. ? Both upper extremities are seen and appear normal; Bilateral hands appear normal . Lower extrem. ? Both lower extremities are seen and appear normal; Bilateral feet appear normal. Skeleton ?Skeletal structures appear normal. The following structures could not be adequately visualized: Heart ? Left ventricular outflow tract. Ductal arch view. Gender: male. MATERNAL STRUCTURES ----- Cervix ?Approach - Transabdominal: Cervical length 5.10 cm. Right Ovary ? Visualized. ?Size 2.3 cm x 1.6 cm x 1.0 cm. Mean 1.6 cm. Vol. 1.9 cm?. Left Ovary ?Not visualized. Procedure Note Davian Alvarez DO - 07/21/2016 Basic Study ----- Pat. Name:Jose Luis ALLAN Date:07/21/2016 3:23pm Pat. NO: [id number] MD:ASHLEE RICHTER MD [facility]Carolina Jimenes RDMS :1990Age:26 ----- INDICATION ----- Encounter for anatomic survey Maternal Obesity (bmi>30 but bmi<40) CODING ----- Diagnosis Z36: Encounter for screening ofmother. Z3A.19: Weeks Gestation of . Procedures 13875: OB >14 wks (1st Basic). HISTORY ----- OB History : 1. MATERNAL ASSESSMENT ----- Physical Exam Weight 86 kg. BMI 33.66 kg/m?. METHOD ----- Transabdominal ultrasound examination. ----- Hu . Number of fetuses: 1. DATING ----- LMP on:03/04/2016 Cycle:regular cycle GA by LMP19 w + 6 d JAMARCUS by LMP:12/09/2016 Ultrasound examination on:07/21/2016 GA by U/S based upon:AC, BPD, Femur, HC GA by U/S20 w + 2 d JAMARCUS by U/S:12/06/2016 Assigned:Dating performed on 04/28/2016, based on the LMP Assigned GA19 w + 6 d Assigned JAMARCUS:12/09/2016 BIOMETRY ----- Main Biometry: BPD 47.6 mm 72% 20w 3dHadlock HC 173.9 mm 46% 19w 6dHadlock AC 154.9 mm 71% 20w 5dHadlock Femur 32.5 mm 53% 20w 1dHadlock Cerebellum tr 20.4 mm 63% 20w 1dGoldstein CM 4.8 mm 45%Nicolaides Nuchal fold 3.55 mm Humerus 29.6 mm 48% 19w 5dJeanty Weight Calculation: EFW 350 g EFW (lb,oz) 0 lb oz 12 Calculated by Maurice ([id number]) Proportionality Ratios: HC / AC 1.12 20%Nicolaides FL / BPD 0.68 36%Hadlock FL / AC 0.21 29%Hadlock Head / Face / Neck Biometry: Outer IOD 32.60 mm 48% 20w 6dJeanty Extremities / Bony Struc Biometry: Tibia 27.0 mm 54% 19w 5dJeanty GENERAL EVALUATION ----- Cardiac activity: present. FHR 138 bpm. movements: visualized. Presentation: cephalic. Placenta: Placental site: posterior. Umbilical cord: Cord vessels: 3 vessel cord. Cord insertion: placentalinsertion: normal 2.2 cm from placental edge. Amniotic fluid: MVP 7.4 cm. ANATOMY ----- The following structures were visualized with normal appearance: Head Head shape and size appear normal. Brain Cerebellum, choroid plexus, cisterna magna,lateral cerebral ventricles, midline falx and cavum septi pellucidi appear normal. Face Profile, orbits, nose, upper lip and palate appearnormal. Neck Spine Cervical, thoracic, lumbar and sacral spine appearnormal. Thorax No thoracic abnormalities detected. Heart Four chamber view of the heart appears normal. Right ventricular outflow tract. Bicaval view.Aortic arch view. Abdominal wall Abdominal wall and cord insertion appearnormal. Stomach Stomach size and situs appear normal. GI tract stomach and intestines appear normal. Kidneys Kidneys appear normal bilaterally; Rt renal pelvis3.3 mm, Lt renal pelvis 4.1mm. Bladder size and shape. Upper extrem. Both upper extremities are seen and appear normal;Bilateral hands appear normal . Lower extrem. Both lower extremities are seen and appear normal;Bilateral feet appear normal. Skeleton Skeletal structures appear normal. The following structures could not be adequately visualized: Heart Left ventricular outflow tract. Ductal archview. Gender: male. MATERNAL STRUCTURES ----- Cervix Approach - Transabdominal: Cervical length 5.10cm. Right Ovary Visualized. Size 2.3 cm x 1.6 cm x 1.0 cm. Mean 1.6 cm. Vol.1.9 cm?. Left Ovary Not visualized. IMPRESSION IMPRESSION ----- Single intrauterine Normal AFV Normal appearing anatomic evaluation -limited cardiac views movement is noted Follow up has been scheduled in 4 weeks for completion of anatomy. Thank you for allowing us to participate in the care of your patient. Ashlee Richter MD ORDERABLES documented in this encounter Visit Diagnoses Diagnosis Encounter for anatomic survey documented in this encounter Care Teams Locomotive Firer Relationship Specialty Start Date End Date Nando Briscoe MD [address] [place] [address] PCP - General Family Practice 04/26/16 documented as of this encounter
--- OUTSIDE RECORDS SUMMARY | 2024-07-06 15:54 | XMS_ITS | Encounter Summary ---
Author Organization [facility] Address [address] [place] [address] Care Team Providers Care Vitamin Manager Name Role Phone Nando Briscoe MD Primary Care Provider [phone] Reason for Referral * Radiology Services (Routine) - Closed Specialty Diagnoses / Procedures Referred By Contac t Referred To Contact Diagnoses Encounter for screening for malformation Encounter for ultrasound to check growth Procedures US OB FOLLOW UP PER FETUS Sigrid Corley MD [address] [address] Referral ID Status Reason Start Date Expiration Date V isits Requested Visits Authorized [id number] Closed [facility] CTS 08/17/2020 09/17/2021 1 1 ER BLOCK MASON Reason for Visit * Radiology Services (Routine) - Closed Specialty Diagnoses / Procedures Referred By Contac t Referred To Contact Diagnoses Encounter for screening for malformation Encounter for ultrasound to check growth Procedures US OB FOLLOW UP PER FETUS Sigrid Corley MD [address] [address] Referral ID Status Reason Start Date Expiration Date V isits Requested Visits Authorized [id number] Closed [facility] CTS 08/17/2020 09/17/2021 1 1 Encounter Details Date Type Department Care Team (Latest Contact Info) Description 09/10/2020 8:09 AM CINDER BLOCK [facility]ON - 09/10/2020 11:59 PM CINDER BLOCK [facility] Hospital Encounter [facility] [place] [address] [place] [phone] Sigrid Corley MD [address] [facility] [address] [place] [address] Discharge Disposition: Home or Self [...] COVID-19? No / Unsure 09/10/2020 8:09 AM CINDER BLOCK [place] documented as of this encounter Plan of Treatment Upcoming Encounters Date Type Department Care Team (Late st Contact Info) Description 07/15/2024 1:00 PM CINDER BLOCK [facility]ON Appointment [facility] [address] [place] [address] Davian Gonzalez MD [address] [facility] [address] [place] [phone] documented as of this encounter Procedures Procedure Name Priority Date/Time Associated Diagnosis Comments US OB FOLLOW UP PER FETUS Routine 09/10/2020 8:53 AM CINDER BLOCK [place]ON Encounter for screening for malformation Encounter for ultrasound to check growth documented in this encounter Results * US OB FOLLOW UP PER FETUS (09/10/2020 8:53 AM CINDER BLOCK MASON) Anatomical Region Laterality Modality Pelvis Ultrasound 09/10/2020 8:18 AM CINDER BLOCK [place]ON Impressions 09/10/2020 8:58 AM CINDER BLOCK [facility]ON IMPRESSION ----- 1. Single living fetus with a gestational age of 23 w 1 d, based on the reported clinical dates. 2. Current growth parameters are consistent with the stated EDC. The size is appropriate for gestational age at 16th percentile. 3. Unremarkable limited anatomy noted. A detailed anatomy cannot be performed secondary to advanced gestational age. However, there are no gross structural abnormalities noted. 4. The amniotic fluid is normal for gestational age. 5. Anatomic views completed. Recommendations: - Recommend follow up growth due to low normal percentile on today's scan in the third trimester. (28-30 weeks) Thank you for allowing us to participate in the care of this patient. Narrative 09/10/2020 8:58 AM CINDER BLOCK MASON STL Follow Up ----- Pat. Name: YANA ALLAN Study Date: 09/10/2020 8:18am Pat. NO: [id number] Referring ??MD: ASHLEE RICHTER MD Site: [place] [employer] Accountant: Carolina Jimenes : 1990 Age: 30 ----- INDICATION ----- Maternal Obesity (bmi greater than 30 but bmi less than 40) Previous Maternal Asthma History of PTD ? @ 36 weeks due to non-reassuring testing Screening for Malformations by US ?Complete anatomy CODING ----- Diagnosis ? O99.212: Obesity complicating ?E66.8: Other obesity ?O34.21: Maternal care for scar from previous delivery ?O99.512: Diseases of the respiratory system complicating ?O09.212: Supervision of with history of pre-term labor ?Z36: Encounter for screening of mother ?Z3A.23: Weeks Gestation of Procedures ?51336: OB follow-up/Target per fetus HISTORY ----- OB History ? 2. Para 1 ?Hu children born living (P) 1 ?P1L1 MATERNAL ASSESSMENT ----- Physical Exam ? Weight 100 kg. BMI 38.98 kg/m?. METHOD ----- Transabdominal ultrasound examination ----- Hu . Number of fetuses: 1. DATING ----- GA by stated dating 23 w + 0 d JAMARCUS by stated dating : 01/07/2021 Ultrasound examination on: 09/10/2020 GA by U/S based upon: AC, BPD, EFW, Femur, HC GA by U/S 22 w + 2 d JAMARCUS by U/S: 01/12/2021 Method of dating: Restore dating from previous exam Assigned: Dating performed on 08/17/2020, based on the external assessment Assigned GA 23 w + 0 d Assigned JAMARCUS: 01/07/2021 BIOMETRY ----- Main Biometry: BPD ? 53.1 ? mm ? 22w 1d ?16% ? Hadlock HC ?202.7 ?mm ? 22w 3d ?15% ? Hadlock AC ?177.7 ?mm ? 22w 5d ?31% ? Hadlock Femur ? 37.3 ? mm ? 21w 6d ?10% ? Hadlock HC / AC ? 1.14 ?46% ? Nicolaides Weight Calculation: EFW ? 494 ?g ?22w 1d ?16% ? Hadlock EFW (lb,oz) ? 1 lb 1 ? oz EFW by ? Hadlock ([id number]) Extremities / Bony Struc Biometry: FL / BPD ?0.70 ? FL / AC ? 0.21 ? Other Structures Biometry: AF MVP ?5.0 ?cm ? FHR ? 147 ?bpm ? GENERAL EVALUATION ----- Cardiac activity present. FHR 147 bpm. movements present. Presentation breech. Placenta Placental site: posterior. Umbilical cord Cord vessels: 3 vessel cord. Cord insertion: placental insertion: normal. Amniotic fluid Amount of AF: normal amount. MVP 5.0 cm. ANATOMY ----- The following structures appear normal: Head / Neck ? Cranium. Lateral ventricles. Choroid plexus. Midline falx. Cavum septi pellucidi. Face ?Profile. Heart / Thorax ?4-chamber view. RVOT view. LVOT view. High short axis view. 8-sdvwzx-guipxqe view. ?Diaphragm. Abdomen ? Stomach. Kidneys. Bladder. Gender: female. COMMENT ----- Patient's name and date of were verified by the berry planter prior to the exam Procedure Twila Dunn MD - 09/10/2020 STL Follow Up ----- Sakshi. Name:YANA ALLANPavan Date:09/10/2020 8:18am Pat. NO: [id number] MD:ASHLEE RICHTER MD Site:Patyographer:Carolina Jimenes :1990Age:30 ----- INDICATION ----- Maternal Obesity (bmi greater than 30 but bmi less than 40) Previous Maternal Asthma History of PTD @ 36 weeks due tonon-reassuring testing Screening for Malformations by US Complete anatomy CODING ----- Diagnosis O99.212: Obesity complicating E66.8: Other obesity O34.21: Maternal care for scar from previouscesarean delivery O99.512: Diseases of the respiratory systemcomplicating O09.212: Supervision of with history ofpre-term labor Z36: Encounter for screening of mother Z3A.23: Weeks Gestation of Procedures 59453: OB follow-up/Target per fetus HISTORY ----- OB History 2. Para 1 Hu children born living (P) 1 P1L1 MATERNAL ASSESSMENT ----- Physical Exam Weight 100 kg. BMI 38.98 kg/m?. METHOD ----- Transabdominal ultrasound examination ----- Hu . Number of fetuses: 1. DATING ----- GA by stated dating 23 w + 0 d JAMARCUS by stated dating :01/07/2021 Ultrasound examination on:09/10/2020 GA by U/S based upon:AC, BPD, EFW, Femur, HC GA by U/S22 w + 2 d JAMARCUS by U/S:01/12/2021 Method of dating:Restore dating from previous exam Assigned:Dating performed on 08/17/2020, based on the externalassessment Assigned GA23 w + 0 d Assigned JAMARCUS:01/07/2021 BIOMETRY ----- Main Biometry: BPD 53.1 mm 22w 1d16% Hadlock HC 202.7 mm 22w 3d15% Hadlock AC 177.7 mm 22w 5d31% Hadlock Femur 37.3 mm 21w 6d10% Hadlock HC / AC 1.1446% Nicolaides Weight Calculation: EFW 494 g 22w 1d16% Hadlock EFW (lb,oz) 1 lb 1 oz EFW by Hadlock ([id number]) Extremities / Bony Struc Biometry: FL / BPD 0.70 FL / AC 0.21 Other Structures Biometry: AF MVP 5.0 cm FHR 147 bpm GENERAL EVALUATION ----- Cardiac activity present. FHR 147 bpm. movements present. Presentation breech. Placenta Placental site: posterior. Umbilical cord Cord vessels: 3 vessel cord. Cord insertion: placentalinsertion: normal. Amniotic fluid Amount of AF: normal amount. MVP 5.0 cm. ANATOMY ----- The following structures appear normal: Head / Neck Cranium. Lateral ventricles. Choroid plexus.Midline falx. Cavum septi pellucidi. Face Profile. Heart / Thorax 4-chamber view. RVOT view. LVOT view. High shortaxis view. 5-tcurlm-tyhhdqo view. Diaphragm. Abdomen Stomach. Kidneys. Bladder. Gender: female. COMMENT ----- Patient's name and date of were verified by the berry planter prior tothe exam IMPRESSION ----- 1. Single living fetus with a gestational age of 23 w 1 d, based on thereported clinical dates. 2. Current growth parameters are consistent with the stated EDC. The fetalsize is appropriate for gestational age at 16th percentile. 3. Unremarkable limited anatomy noted. A detailed anatomycannot be performed secondary to advanced gestational age. However, there are no gross structural abnormalities noted. 4. The amniotic fluid is normal for gestational age. 5. Anatomic views completed. Recommendations: - Recommend follow up growth due to low normal percentile on today's scanin the third trimester. (28-30 weeks) Thank you for allowing us to participate in the care of this patient. Sigrid Corley MD US ORDERABLES documented in this encounter Visit Diagnoses Diagnosis Encounter for screening for malformation Encounter for ultrasound to check growth documented in this encounter Care Teams Vitamin Manager Relationship Specialty Start Date End Date Nando Briscoe MD [address] [place] [address] PCP - General Family Practice 04/26/16 documented as of this encounter
--- OUTSIDE RECORDS SUMMARY | 2024-07-06 15:54 | XMS_ITS | Encounter Summary ---
Author Organization [facility] Address [address] [place] [address] Care Team Providers Care Hand Clipper Name Role Phone Nando Briscoe MD Primary Care Provider [phone] Reason for Referral * Radiology Services (Routine) - Closed Specialty Diagnoses / Procedures Referred By Contac t Referred To Contact Diagnoses Encounter for routine screening for malformation using ultrasound Procedures US OB DETAIL SINGLE GEST Ashlee Adams MD [address] [address] [facility] [address] [place] [address] Referral ID Status Reason Start Date Expiration Date Visits Re quested Visits Authorized [id number] Closed 03/06/2024 04/06/2025 1 1 Reason for Visit * Radiology Services (Routine) - Closed Specialty Diagnoses / Procedures Referred By Contac t Referred To Contact Diagnoses Encounter for routine screening for malformation using ultrasound Procedures US OB DETAIL SINGLE GEST Ashlee Adams MD [address] [address] [facility] [place] [address] [place] [address] Referral ID Status Reason Start Date Expiration Date Visits Re quested Visits Authorized [id number] Closed 03/06/2024 04/06/2025 1 1 Encounter Details Date Type Department Care Team (Latest Contact Info) Description 04/22/2024 9:13 AM CDT - 04/22/2024 11:59 PM CDT Hospital Encounter [facility] [address] [place] [address] Ashlee Richter MD [address] [facility] [address] [facility] [address] [place] [phone] Discharge Disposition: Home or Self Care Social [...] st Contact Info) Description 07/15/2024 1:00 PM MEDICAL HEALTH RESEARCHER Appointment [facility] [address] [place] [address] Davian Gonzalez MD [address] [facility] [address] [place] [phone] documented as of this encounter Procedures Procedure Name Priority Date/Time Associated Diagnosis Comments US OB DETAIL SINGLE GEST Routine 04/22/2024 10:05 AM CDT Encounter for routine screening for malformation using ultrasound documented in this encounter Results * US OB DETAIL SINGLE GEST (04/22/2024 10:05 AM CDT) Anatomical Region Laterality Modality Pelvis Ultrasound 04/22/2024 9:22 AM CDT Narrative 04/22/2024 10:20 AM CDT STL COMP ----- Pat. Name: YANA ALLAN Study Date: 04/22/2024 9:22am Pat. NO: [id number] Referring ??MD: ASHLEE RICHTER MD Site: [place] Allergist: Sherry Pak RDMS : 1990 Age: 33 [...] ?Z36.3: Encounter for screening for malformations Procedures ?99925: Ultrasound, uterus, real time with image documentation, [...] lb 13 ? oz EFW by ?Hadlock ([id number]) Head / Face / Neck Biometry: Absence Management Consultant ? 6.2 ? mm CM ? 5.4 [...] view. RVOT view. LVOT view. 3-vessel view. 9-wnrhyc-xpgtwon view. Situs. Aortic arch view. ?Ductal arch [...] and date of were verified by the truck dock material mover before the exam IMPRESSION ----- Viable at [...] Name:Jose Luis ALLAN Date:04/22/2024 9:22am Pat. NO: [id number] MD:ASHLEE RICHTER MD [facility]Sherry Pak RDMS :1990Age:33 ----- INDICATION ----- Anatomy [...] or obstetric history Z36.3: [facility]: Ul[facility]ound, uterus, real time withimage documentation, and maternal evaluation plus detailed anatomic examination,transabdominal approach HISTORY ----- OB History 4. Para 2 Hu children born living (T) 2. Miscarriages1 T2A1L2 MATERNAL ASSESSMENT ----- Physical Exam Weight 109 kg. BMI 42.53 kg/m?? METHOD ----- Transabdominal ultrasound examination ----- Hu . Number of fetuses: 1 DATING ----- GA by prior [id number] w + 3 d JAMARCUS by prior [...] 20w 4d57% Valorie HC / AC 1.14 31%Nicolaides Weight Calculation: EFW 356 g 20w 3d 47%Hadlock EFW (lb,oz) 0 lb 13 oz EFW by Hadlock ([id number]) Head / Face / Neck Biometry: Absence Management Consultant 6.2 mm CM 5.4 mm 60%Nicolaides Outer [...] 4-chamber view. RVOT view. LVOT view. 3-vesselview. 9-cxtano-sjvqzqx view. Situs. Aortic arch view. Ductal arch [...] and date of were verified by the truck dock material mover beforethe exam IMPRESSION ----- Viable at 20 [...] at 36 weeksgestation Ashlee Richter MD ORDERABLES documented in this encounter Visit Diagnoses Diagnosis Encounter for routine screening for malformation using ultrasound documented in this encounter Care Teams Hand Clipper Relationship Specialty Start Date End Date Nando Briscoe MD [facility] [place] [phone] PCP - General Family Practice 04/26/16 documented as of this encounter
== END 2024-07-01 07:08 | disposition home or self-care (01) ==
LOC: ANHLAB 07:09
PROVIDERS: PCP Family Medicine Sports Medicine; Visit Provider Obstetrics & Gynecology
DX: O99.810 Abnormal glucose complicating pregnancy (principal); Z3A.00 Weeks of gestation of pregnancy not specified
CPT/HCPCS: 36415; 82951; 82952

== ENCOUNTER 2024-07-27 12:44 | Outpatient (CLI) | payer OTHER, SELFPAY ==
[2024-07-27 12:57] LABS: Hematocrit 35.9 % (37.0-47.0); Hemoglobin 11.5 g/dL (12.0-15.0); Mean Corpuscular Hemoglobin 28.2 pg (26-34); Mean Platelet Volume 8.9 fl (7.4-10.4); Platelet Count Result 212 k/mm3 (150-375); Red Blood Count 4.08 M/mm3 (4.2-5.4); Red Cell Distribution Width 16.6 % (11.5-14.5); White Blood Count 8.6 K/mm3 (4.5-10.0)
[2024-07-27 13:15] LABS: Anisocytosis 1+; Platelet Estimate Adequate (Adequate); Schistocytes None Seen
[2024-07-27 13:49] LABS: HIV 1/2 Ab P24 Ag Result Negative (Negative)
[2024-07-28 08:54] LABS: Rapid Plasma Reagin Non-Reactive (NonReactive)
== END 2024-07-27 12:45 | disposition home or self-care (01) ==
LOC: ANHLAB 12:45
PROVIDERS: PCP Family Medicine Sports Medicine; Visit Provider Obstetrics & Gynecology
DX: Z34.90 Encounter for supervision of normal pregnancy, unspecified, unspecified trimester (principal)
CPT/HCPCS: 36415; 85025; 86592; 86703; G0432

== ENCOUNTER 2024-08-26 07:11 | Outpatient (CLI) | payer OTHER, SELFPAY ==
--- OUTSIDE RECORDS SUMMARY | 2024-08-26 07:14 | XMS_ITS | Clinical Summary ---
Author Organization [facility] [address] Address [address] [address] Phone Care Team Providers Care Universal Branch Consultant Name Role Phone Nando Briscoe MD Primary Care Provider [phone] Allergies No known active allergies Medications No known medications Active Problems Problem Noted Date Diagnosed Date hydronephrosis duri ng in third trimester, antepartum 10/24/2016 Encounters Date Type Department Care Team Description 08/19/2024 9:38 AM CAR SALES CONSULTANT - 08/19/2024 11:59 PM CAR SALES CONSULTANT Hospital Encounter [facility] Elian Sharma [address] [place] [phone] Brandy Candelario MD Discharge Disposition: Home or Self Care 08/19/2024 9:00 AM CAR SALES CONSULTANT - 08/19/2024 11:59 PM CAR SALES CONSULTANT Hospital Encounter [facility] Elian Sharma [address] [place] [phone] Brandy Candelario MD Discharge Disposition: Home or Self Care 08/15/2024 9:00 AM CAR SALES CONSULTANT - 08/15/2024 11:59 PM CAR SALES CONSULTANT Hospital Encounter [facility] 2022 Elian Sharma [address] [place] [phone] Brandy Candelario MD Discharge Disposition: Home or Self Care 08/08/2024 External Device Data STL ABSTRACTION Provider, Abstract 08/07/2024 External Device Data STL ABSTRACTION Provider, Abstract 08/06/2024 External Device Data STL ABSTRACTION Provider, Abstract 07/15/2024 1:00 PM CAR SALES CONSULTANT - 07/15/2024 11:59 PM CAR SALES CONSULTANT Hospital Encounter [facility] Elian Sharma [address] [place] [phone] Davian Gonzalez MD Discharge Disposition: Home or Self Care 06/17/2024 9:13 AM CAR SALES CONSULTANT - 06/17/2024 11:59 PM CAR SALES CONSULTANT Hospital Encounter [facility] Elian Sharma [address] [place] [phone] Davian Gonzalez MD Discharge Disposition: Home or Self Care from Last 3 Months Social History Tobacco Use Types Packs/Day Years Used Date Smoking Tobacco: Never Assessed Comments No Sex and Gender Information Value Date Recorded Sex Assigned at Not on file Legal Sex Female 9:27 AM CDT Gender Identity Not on file Sexual Orientation Not on file Last Filed Vital Signs Vital Sign Reading Time Taken Comments Blood Pressure 120/70 10/24/2016 3:48 PM CDT Pulse - - Temperature 36.2 C (97.2 F) 10/24/2016 3:48 PM CDT Respiratory Rate - - Oxygen Saturation - - Inhaled Oxygen Concentration - - Weight 99.8 kg (220 lb) 10/24/2016 3:48 PM CDT Height 160 cm (5' 3 ) 10/24/2016 3:48 PM CDT Body Mass Index 38.97 10/24/2016 3:48 PM CDT Plan of Treatment Health Maintenance Due Date Last Done Comments DTAP/TDAP/TD VACCINES (1 - Tdap) 2009 HEPATITIS B VACCINES (1 of 3 - 19+ 3-dose series) 2009 CERVICAL CANCER SCREENING 2020 INFLUENZA VACCINE (#1) 2024 Preventative Visit- Commercial 07/17/2024 HPV VACCINES Aged Out No longer eligi ble based on patient's age to complete this topic Procedures Procedure Name Priority Date/Time Associated Diagnosis Comments US BIOPHYSICAL PROF W NST Routine 08/19/2024 11:31 AM CAR SALES CONSULTANT Obesity affecting in third trimester, unspecified obesity type History of US OB FOLLOW UP PER FETUS Routine 08/19/2024 10:06 AM CAR SALES CONSULTANT Obesity affecting in third trimester, unspecified obesity type History of US OB LIMITED + NST Routine 08/15/2024 1 0:45 AM CAR SALES CONSULTANT Obesity affecting in third trimester, unspecified obesity type History of US OB FOLLOW UP PER FETUS Routine 07/15/2024 1:30 PM CAR SALES CONSULTANT Obesity affecting in third trimester, unspecified obesity type History of US OB FOLLOW UP PER FETUS Routine 06/17/2024 9:42 AM CAR SALES CONSULTANT Obesity affecting in third trimester, unspecified obesity type History of from Last 3 Months Results * US BIOPHYSICAL PROF W NST (08/19/2024 11:31 AM CAR SALES CONSULTANT) Anatomical Region Laterality Modality Pelvis Ultrasound 08/19/2024 10:2 8 AM CAR SALES CONSULTANT Narrative 08/19/2024 11:13 AM CAR SALES CONSULTANT BPP WITH NST STUDY ----- Pat. Name: YANA ALLAN Study Date: 08/19/2024 10:28am Pat. NO: [id number] Referring MD: ASHLEE RICHTER MD Site: [facility] Functional Support Analyst: : 1990 Age: 34 ----- INDICATION ----- Screening Follow-Up Previous Miscarriage Maternal Obesity (BMI>40) Complicating Maternal Care for Low Transverse Scar from Previous Delivery (Previous ) CODING ----- Diagnoses Z3A.37: Weeks of gestation O34.211: Maternal care for low transverse scar from previous delivery O99.213: Obesity complicating O09.293: Supervision of with other poor reproductive or obstetric history Z36.3: Encounter for screening for malformations Z36.2: Encounter for other screening follow-up Procedures 52242: Limited 1 or more - MARGOT, R, position 66592: biophysical profile; with non-stress testing HISTORY ----- OB History 4. Para 2 Hu children born living (T) 2. Miscarriages 1 T2A1L2 MATERNAL ASSESSMENT ----- Physical Exam Initial weight 109 kg, 240 lb. Initial BMI 42.53 kg/m . Blood pressure 125/60 mmHg. Heart rate 90 bpm METHOD ----- EFM. Transabdominal ultrasound examination. View: Good view ----- Hu . Number of fetuses: 1 DATING ----- GA by prior assessment 37 w + 3 d JAMARCUS by prior assessment: 09/06/2024 Method of dating: Restore dating from previous exam Assigned: based on ultrasound (AC, BPD, EFW, Femur, HC), selected on 08/19/2024 Assigned GA 37 w + 3 d Assigned JAMARCUS: 09/06/2024 GENERAL EVALUATION ----- Cardiac activity present. movements: visualized. Presentation: cephalic NON STRESS TEST ----- NST interpretation: reactive. Test duration 27 min. Baseline FHR 135 bpm. Baseline variability: moderate. Accelerations: Present. Decelerations: Not present. Uterine activity: absent AMNIOTIC FLUID ASSESSMENT ----- Amount of AF: normal amount MARGOT 17.8 cm BIOPHYSICAL PROFILE ----- 2: breathing movements 2: Gross body movements 2: tone 2: Amniotic fluid volume NST: reactive 04/25 Biophysical profile score COMMENT ----- Nursing notes: Patient reports positive movement and no bleeding, leaking or matt. Patient unable to come the recommended twice weekly this week so BPP done in US and NST. Patient scheduled for section on 08/27/24. IMPRESSION ----- 1. Hu living fetus with a gestational age of 37w 3d, based on the reported clinical dates. 2. Amniotic fluid volume is normal for gestational age ( MARGOT:17.8 cm). 3. NST reactive and reassuring for gestational age. BPP 04/25. Recommendations: - Continue current surveillance plan. - Daily kick counts are encouraged Thank you for allowing us to participate in the care of this patient. Procedure Note Chad Lopez MD - 08/19/2024 BPP WITH NST STUDY ----- Pat. Name:Jose Luis ALLAN Date:08/19/2024 10:28am Pat. NO: [id number] :ASHLEE RICHTER MD Site:[facility]: :1990Age:34 ----- INDICATION ----- Screening Follow-Up Previous Miscarriage Maternal Obesity (BMI>40) Complicating Maternal Care for Low Transverse Scar from Previous Delivery (Previous ) CODING ----- Diagnoses Z3A.37: Weeks of gestation O34.211: Maternal care for low transverse scarfrom previous delivery O99.213: Obesity complicating O09.293: Supervision of with other poorreproductive or obstetric history Z36.3: Encounter for screening formalformations Z36.2: Encounter for other screeningfollow-up Procedures 63238: Limited 1 or more - [facility], position 96739: biophysical profile; with non-stresstesting HISTORY ----- OB History 4. Para 2 Hu children born living (T) 2. Miscarriages1 T2A1L2 MATERNAL ASSESSMENT ----- Physical Exam Initial weight 109 kg, 240 lb. Initial BMI 42.53kg/m . Blood pressure 125/60 mmHg. Heart rate 90 bpm METHOD ----- EFM. Transabdominal ultrasound examination. View: Good view ----- Hu . Number of fetuses: 1 DATING ----- GA by prior [id number] w + 3 d JAMARCUS by prior assessment:09/06/2024 Method of dating:Restore dating from previous exam Assigned:based on ultrasound (AC, BPD, EFW, Femur, HC), selected on08/19/2024 Assigned GA37 w + 3 d Assigned JAMARCUS:09/06/2024 GENERAL EVALUATION ----- Cardiac activity present. movements: visualized. Presentation:cephalic NON STRESS TEST ----- NST interpretation: reactive. Test duration 27 min. Baseline FHR 135 bpm.Baseline variability: moderate. Accelerations: Present. Decelerations: Not present. Uterine activity: absent AMNIOTIC FLUID ASSESSMENT ----- Amount of AF: normal amount MARGOT 17.8 cm BIOPHYSICAL PROFILE ----- 2: breathing movements 2: Gross body movements 2: tone 2: Amniotic fluid volume NST: reactive 04/25 Biophysical profile score COMMENT ----- Nursing notes: Patient reports positive movement and no bleeding,leaking or matt. Patient unable to come the recommended twice weekly this week so BPP done in US and NST. Patientscheduled for section on 08/27/24. IMPRESSION ----- 1. Hu living fetus with a gestational age of 37w 3d, based on thereported clinical dates. 2. Amniotic fluid volume is normal for gestational age ( MARGOT:17.8 cm). 3. NST reactive and reassuring for gestational age. [facility] 04/25. Recommendations: - Continue current surveillance plan. - Daily kick counts are encouraged Thank you for allowing us to participate in the care of this patient. us Brandy Candelario MD US ORDERABLES Final Result * US OB FOLLOW UP PER FETUS (08/19/2024 10:06 AM CAR SALES CONSULTANT) Only the most recent of3 resultswithin the time period is included. Anatomical Region Laterality Modality Pelvis Ultrasound 08/19/2024 9:39 AM CAR SALES CONSULTANT Narrative 08/19/2024 10:07 AM CAR SALES CONSULTANT STL FOLLOW UP ----- Pat. Name: YANA ALLAN Study Date: 08/19/2024 9:39am Pat. NO: [id number] Referring MD: ASHLEE RICHTER MD Site: [facility] Functional Support Analyst: Priya Rodriguez RDMS : 1990 Age: 34 ----- INDICATION ----- Screening Follow-Up Previous Miscarriage Maternal Obesity (BMI>40) Complicating Maternal Care for Low Transverse Scar from Previous Delivery (Previous ) CODING ----- Diagnoses Z3A.37: Weeks of gestation O34.211: Maternal care for low transverse scar from previous delivery O99.213: Obesity complicating O09.293: Supervision of with other poor reproductive or obstetric history Z36.3: Encounter for screening for malformations Z36.2: Encounter for other screening follow-up Procedures 75360: Ultrasound, uterus, real time with image documentation, follow up, transabdominal approach per fetus HISTORY ----- OB History 4. Para 2 Hu children born living (T) 2. Miscarriages 1 T2A1L2 MATERNAL ASSESSMENT ----- Physical Exam Initial weight 109 kg, 240 lb. Initial BMI 42.53 kg/m METHOD ----- Transabdominal ultrasound examination ----- Hu . Number of fetuses: 1 DATING ----- GA by prior assessment 37 w + 3 d JAMARCUS by prior assessment: 09/06/2024 Method of dating: based on ultrasound Ultrasound examination on: 08/19/2024 GA by U/S based upon: AC, BPD, EFW, Femur, HC GA by U/S 37 w + 3 d JAMARCUS by U/S: 09/06/2024 Assigned: based on ultrasound (AC, BPD, EFW, Femur, HC), selected on 08/19/2024 Assigned GA 37 w + 3 d Assigned JAMARCUS: 09/06/2024 BIOMETRY ----- BPD 92.5 mm 37w 4d 73% Hadlock OFD 115.2 mm -/- 81% Valorie HC 333.1 mm 38w 0d 41% Hadlock AC 342.6 mm 38w 1d 83% Hadlock Femur 69.6 mm 35w 5d 12% Hadlock HC / AC 0.97 27% Nicolaides Weight Calculation: EFW 3,231 g 38w 0d 61% Hadlock EFW (lb,oz) 7 lb 2 oz EFW by Hadlock ([id number]) Extremities / Bony Struc Biometry: FL / BPD 0.75 FL / HC 0.21 FL / AC 0.20 GENERAL EVALUATION ----- Cardiac activity present. FHR 141 bpm. movements: present. Presentation: cephalic Placenta: Placental site: anterior Umbilical cord: Cord vessels: 3 vessel cord. Insertion site: placental insertion: normal Amniotic fluid: Amount of AF: normal amount. MVP 5.8 cm. MARGOT 17.8 cm. Q1 4.4 cm, Q2 3.6 cm, Q3 3.8 cm, Q4 5.8 cm ANATOMY ----- The following structures appear normal: Head / Neck Cranium. Midline falx. Cavum septi pellucidi. Heart / Thorax Diaphragm. Abdomen Stomach. Kidneys. Bladder. GROWTH OVERVIEW ----- Exam date GA BPD (mm) HC (mm) AC (mm) FL (mm) HL (mm) EFW (g) 04/22/2024 20w 3d 47.8 51% 175.1 24% 153.6 48% 33.4 43% 31.7 57% 356 47% 06/17/2024 28w 3d 73.4 71% 271.9 57% 239.2 36% 51.7 15% 1,194 30% 07/15/2024 32w 3d 83.5 76% 312.0 78% 290.7 69% 60.8 17% 2,068 54% 08/19/2024 37w 3d 92.5 73% 333.1 41% 342.6 83% 69.6 12% 3,231 61% COMMENT ----- Patient's name and date of were verified by the teachers aide prior to the exam IMPRESSION ----- 1. Single living fetus with a gestational age of 37w 3d, based on the reported clinical dates. 2. Current growth parameters are consistent with the stated EDC. The size is appropriate for gestational age at 61% percentile (3231 g). 3. Unremarkable limited anatomy noted. A detailed anatomy cannot be performed secondary to advanced gestational age. However, there are no gross structural abnormalities noted. 4. The amniotic fluid is normal for gestational age (MVP:5.8 cm , MARGOT:17.8 cm ). 5. anterior placenta. No previa/not low-lying. 6. cephalic presentation. Recommendations: -Continue testing as scheduled Procedure Note Chad Lopez MD - 08/19/2024 STL FOLLOW UP ----- Pat. Name:Jose Luis ALLAN Date:08/19/2024 9:39am Pat. NO: [id number] MD:ASHLEE RICHTER [facility]Priya Rodriguez RDMS :1990Age:34 ----- INDICATION ----- Screening Follow-Up Previous Miscarriage Maternal Obesity (BMI>40) Complicating Maternal Care for Low Transverse Scar from Previous Delivery (Previous ) CODING ----- Diagnoses Z3A.37: Weeks of gestation O34.211: Maternal care for low transverse scarfrom previous delivery O99.213: Obesity complicating O09.293: Supervision of with other poorreproductive or obstetric history Z36.3: Encounter for screening formalformations Z36.2: Encounter for other screeningfollow-up Procedures 76623: Ultrasound, uterus, real time withimage documentation, follow up, transabdominal approach per fetus HISTORY ----- OB History 4. Para 2 Hu children born living (T) 2. Miscarriages1 T2A1L2 MATERNAL ASSESSMENT ----- Physical Exam Initial weight 109 kg, 240 lb. Initial BMI 42.53kg/m METHOD ----- Transabdominal ultrasound examination ----- Hu . Number of fetuses: 1 DATING ----- GA by prior [id number] w + 3 d JAMARCUS by prior assessment:09/06/2024 Method of dating:based on ultrasound Ultrasound examination on:08/19/2024 GA by U/S based upon:AC, BPD, EFW, Femur, HC GA by U/S37 w + 3 d JAMARCUS by U/S:09/06/2024 Assigned:based on ultrasound (AC, BPD, EFW, Femur, HC), selected on08/19/2024 Assigned GA37 w + 3 d Assigned JAMARCUS:09/06/2024 BIOMETRY ----- BPD 92.5 mm 37w 4d 73%Hadlock OFD 115.2 mm -/- 81%Valorie HC 333.1 mm 38w 0d 41%Hadlock AC 342.6 mm 38w 1d 83%Hadlock Femur 69.6 mm 35w 5d 12%Hadlock HC / AC 0.97 27%Nicolaides Weight Calculation: EFW 3,231 g 38w 0d61% Hadlock EFW (lb,oz) 7 lb 2 oz EFW by Hadlock ([id number]) Extremities / Bony Struc Biometry: FL / BPD 0.75 FL / HC 0.21 FL / AC 0.20 GENERAL EVALUATION ----- Cardiac activity present. FHR 141 bpm. movements: present.Presentation: cephalic Placenta: Placental site: anterior Umbilical cord: Cord vessels: 3 vessel cord. Insertion site: placentalinsertion: normal Amniotic fluid: Amount of AF: normal amount. MVP 5.8 cm. MARGOT 17.8 cm. Q14.4 cm, Q2 3.6 cm, Q3 3.8 cm, Q4 5.8 cm ANATOMY ----- The following structures appear normal: Head / Neck Cranium. Midline falx. Cavum septi pellucidi. Heart / Thorax Diaphragm. Abdomen Stomach. Kidneys. Bladder. GROWTH OVERVIEW ----- Exam date GA BPD (mm) HC (mm) AC (mm) FL(mm) HL (mm) EFW (g) 04/22/2024 20w 3d 47.8 51% 175.1 24% 153.6 48%33.4 43% 31.7 57% 356 47% 06/17/2024 28w 3d 73.4 71% 271.9 57% 239.2 36%51.7 15% 1,194 30% 07/15/2024 32w 3d 83.5 76% 312.0 78% 290.7 69%60.8 17% 2,068 54% 08/19/2024 37w 3d 92.5 73% 333.1 41% 342.6 83%69.6 12% 3,231 61% COMMENT ----- Patient's name and date of were verified by the teachers aide prior tothe exam IMPRESSION ----- 1. Single living fetus with a gestational age of 37w 3d, based on thereported clinical dates. 2. Current growth parameters are consistent with the stated EDC. The fetalsize is appropriate for gestational age at 61% percentile (3231 g). 3. Unremarkable limited anatomy noted. A detailed anatomycannot be performed secondary to advanced gestational age. However, there are no gross structural abnormalities noted. 4. The amniotic fluid is normal for gestational age (MVP:5.8 cm , MARGOT:17.8cm ). 5. anterior placenta. No previa/not low-lying. 6. cephalic presentation. Recommendations: -Continue testing as scheduled us Brandy Candelario MD US ORDERABLES Final Result * US OB LIMITED + NST (08/15/2024 10:45 AM CAR SALES CONSULTANT) Anatomical Region Laterality Modality Pelvis Ultrasound 08/15/2024 2:04 PM CAR SALES CONSULTANT Narrative 08/15/2024 10:21 AM CAR SALES CONSULTANT MODIFIED BP STUDY ----- Pat. Name: YANA ALLAN Study Date: 08/15/2024 2:04pm Pat. NO: [id number] Referring MD: ASHLEE RICHTER MD Site: [facility] Functional Support Analyst: : 1990 Age: 34 ----- INDICATION ----- Screening Follow-Up Previous Miscarriage Maternal Obesity (BMI>40) Complicating Maternal Care for Low Transverse Scar from Previous Delivery (Previous ) CODING ----- Diagnoses Z3A.36: Weeks of gestation O34.211: Maternal care for low transverse scar from previous delivery O99.213: Obesity complicating O09.293: Supervision of with other poor reproductive or obstetric history Z36.3: Encounter for screening for malformations Z36.2: Encounter for other screening follow-up Procedures 86667: NST/ monitoring 05402: Limited 1 or more - MARGOT, FHR, position (modifier 59 for MBPP) HISTORY ----- OB History 4. Para 2 Hu children born living (T) 2. Miscarriages 1 T2A1L2 MATERNAL ASSESSMENT ----- Physical Exam Weight 100 kg. Initial weight 109 kg, 240 lb. BMI 38.98 kg/m . Initial BMI 42.53 kg/m . Weight gain -9 kg, -20 lb. Blood pressure 113/61 mmHg. Heart rate 74 bpm METHOD ----- EFM, Transabdominal ultrasound examination. View: Good view ----- Hu . Number of fetuses: 1 DATING ----- GA by prior assessment 36 w + 6 d JAMARCUS by prior assessment: 09/06/2024 Method of dating: Restore dating from previous exam Assigned: based on stated JAMARCUS, selected on 03/28/2024 Assigned GA 36 w + 6 d Assigned JAMARCUS: 09/06/2024 GENERAL EVALUATION ----- Cardiac activity present. movements: visualized. Presentation: cephalic NON STRESS TEST ----- NST interpretation: reactive. Test duration 28 min. Baseline FHR 140 bpm. Baseline variability: moderate. Accelerations: Present. Decelerations: absent. Uterine activity: absent AMNIOTIC FLUID ASSESSMENT ----- Amount of AF: normal amount MVP 5.4 cm. MARGOT 12.0 cm. Q1 5.4 cm, Q2 2.3 cm, Q3 1.7 cm, Q4 2.6 cm COMMENT ----- Nurses Notes: Patient reports positive movement and no bleeding, leaking of fluid or matt. Patient scheduled twice weekly IMPRESSION ----- 1. Hu living fetus with a gestational age of 36w 6d, based on the reported clinical dates. 2. Amniotic fluid volume is normal for gestational age (MVP:5.4 cm MARGOT:12 cm). 3. NST reactive and reassuring for gestational age. Recommendations: - Continue current surveillance plan. - Daily kick counts are encouraged Thank you for allowing us to participate in the care of this patient. Procedure Note Brandy Candelario MD - 08/15/2024 MODIFIED BPP STUDY ----- Pat. Name:Jose Luis ALLAN Date:08/15/2024 2:04pm Pat. NO: [id number] MD:ASHLEE RICHTER MD [facility]1990Age:34 ----- INDICATION ----- Screening Follow-Up Previous Miscarriage Maternal Obesity (BMI>40) Complicating Maternal Care for Low Transverse Scar from Previous Delivery (Previous ) CODING ----- Diagnoses Z3A.36: Weeks of gestation O34.211: Maternal care for low transverse scarfrom previous delivery O99.213: Obesity complicating O09.293: Supervision of with other poorreproductive or obstetric history Z36.3: Encounter for screening formalformations Z36.2: Encounter for other screeningfollow-up Procedures 79671: NST/ monitoring 15185: Limited 1 or more - MARGOT, FHR, position(modifier 59 for MBPP) HISTORY ----- OB History 4. Para 2 Hu children born living (T) 2. Miscarriages1 T2A1L2 MATERNAL ASSESSMENT ----- Physical Exam Weight 100 kg. Initial weight 109 kg, 240 lb. BMI38.98 kg/m . Initial BMI 42.53 kg/m . Weight gain -9 kg, -20 lb. Blood pressure 113/61 mmHg. Heart rate74 bpm METHOD ----- EFM, Transabdominal ultrasound examination. View: Good view ----- Hu . Number of fetuses: 1 DATING ----- GA by prior [id number] w + 6 d JAMARCUS by prior assessment:09/06/2024 Method of dating:Restore dating from previous exam Assigned:based on stated JAMARCUS, selected on 03/28/2024 Assigned GA36 w + 6 d Assigned JAMARCUS:09/06/2024 GENERAL EVALUATION ----- Cardiac activity present. movements: visualized. Presentation:cephalic NON STRESS TEST ----- NST interpretation: reactive. Test duration 28 min. Baseline FHR 140 bpm.Baseline variability: moderate. Accelerations: Present. Decelerations: absent. Uterine activity: absent AMNIOTIC FLUID ASSESSMENT ----- Amount of AF: normal amount MVP 5.4 cm. MARGOT 12.0 cm. Q1 5.4 cm, Q2 2.3 cm, Q3 1.7 cm, Q4 2.6 cm COMMENT ----- Nurses Notes: Patient reports positive movement and no bleeding,leaking of fluid or matt. Patient scheduled twice weekly IMPRESSION ----- 1. Hu living fetus with a gestational age of 36w 6d, based on thereported clinical dates. 2. Amniotic fluid volume is normal for gestational age (MVP:5.4 cm MARGOT:12cm). 3. NST reactive and reassuring for gestational age. Recommendations: - Continue current surveillance plan. - Daily kick counts are encouraged Thank you for allowing us to participate in the care of this patient. us Brandy Candelario MD US ORDERABLES Final Result from Last 3 Months Insurance [email or web address] [id number] Care Teams Universal Branch Consultant Relationship Specialty Start Date End Date Nando Briscoe MD [employer] [place] [address] PCP - General Family Practice 04/26/16
[2024-08-26 08:09] LABS: Hematocrit 35.7 % (37.0-47.0); Hemoglobin 11.5 g/dL (12.0-15.0); Mean Corpuscular HGB Conc 32.2 g/dl (32-36); Mean Corpuscular Volume 89.9 fl (80-100); Mean Platelet Volume 9.5 fl (7.4-10.4); Platelet Count Result 199 k/mm3 (150-375); Red Blood Count 3.97 M/mm3 (4.2-5.4); Red Cell Distribution Width 16.4 % (11.5-14.5); White Blood Count 7.2 K/mm3 (4.5-10.0)
[2024-08-26 08:59] LABS: HIV 1/2 Ab P24 Ag Result Negative (Negative)
[2024-08-26 14:19] LABS: Rapid Plasma Reagin Non-Reactive (NonReactive)
== END 2024-08-26 07:12 | disposition home or self-care (01) ==
LOC: ANHLAB 07:13
PROVIDERS: PCP Family Medicine; Visit Provider Obstetrics & Gynecology
DX: Z01.812 Encounter for preprocedural laboratory examination (principal)
CPT/HCPCS: 36415; 85027; 86592; 86703; 86850; 86900; 86901; G0432

== ENCOUNTER 2024-08-27 05:36 | Inpatient (IN) | payer OTHER, SELFPAY ==
[2024-08-27] VITALS (63 sets, daily range): BP systolic 83–132; BP diastolic 34–82; PULSE 53–126; RESP 14–16; TEMP 36.1–36.8; O2SAT 96–100; BMI 43.0
--- OUTSIDE RECORDS SUMMARY | 2024-08-27 05:41 | XMS_ITS | Clinical Summary ---
Author Organization [facility] [address] Address [address] [address] Phone Care Team Providers Care Nc Manager Name Role Phone Nando Briscoe MD Primary Care Provider [phone] Allergies No known active allergies Medications No known medications Active Problems Problem Noted Date Diagnosed Date hydronephrosis duri ng in third trimester, antepartum 10/24/2016 Encounters Date Type Department Care Team Description 08/19/2024 9:38 AM FEATHER BONER - 08/19/2024 11:59 PM FEATHER BONER Hospital Encounter [facility] Elian Sharma [address] [place] [phone] Brandy Candelario MD Discharge Disposition: Home or Self Care 08/19/2024 9:00 AM FEATHER BONER - 08/19/2024 11:59 PM FEATHER BONER Hospital Encounter [facility] Elian Sharma [address] [place] [phone] Brandy Candelario MD Discharge Disposition: Home or Self Care 08/15/2024 9:00 AM FEATHER BONER - 08/15/2024 11:59 PM FEATHER BONER Hospital Encounter [facility] 2022 Elian Sharma [address] [place] [phone] Brandy Candelario MD Discharge Disposition: Home or Self Care 08/08/2024 External Device Data STL ABSTRACTION Provider, Abstract 08/07/2024 External Device Data STL ABSTRACTION Provider, Abstract 08/06/2024 External Device Data STL ABSTRACTION Provider, Abstract 07/15/2024 1:00 PM FEATHER BONER - 07/15/2024 11:59 PM FEATHER BONER Hospital Encounter [facility] Elian Sharma [address] [place] [phone] Davian Gonzalez MD Discharge Disposition: Home or Self Care 06/17/2024 9:13 AM FEATHER BONER - 06/17/2024 11:59 PM FEATHER BONER Hospital Encounter [facility] Elian Sharma [address] [place] [phone] Davian Gonzalez MD Discharge Disposition: Home or [...] PROF W NST Routine 08/19/2024 11:31 AM FEATHER BONER Obesity affecting in third trimester, unspecified obesity type History of US OB FOLLOW UP PER FETUS Routine 08/19/2024 10:06 AM FEATHER BONER Obesity affecting in third trimester, unspecified obesity type History of US OB LIMITED + NST Routine 08/15/2024 1 0:45 AM FEATHER BONER Obesity affecting in third trimester, unspecified obesity type History of US OB FOLLOW UP PER FETUS Routine 07/15/2024 1:30 PM FEATHER BONER Obesity affecting in third trimester, unspecified obesity type History of US OB FOLLOW UP PER FETUS Routine 06/17/2024 9:42 AM FEATHER BONER Obesity affecting in third trimester, unspecified obesity type History of from Last 3 Months Results * US BIOPHYSICAL PROF W NST (08/19/2024 11:31 AM FEATHER BONER) Anatomical Region Laterality Modality Pelvis Ultrasound 08/19/2024 10:2 8 AM FEATHER BONER Narrative 08/19/2024 11:13 AM FEATHER BONER BPP WITH NST STUDY ----- Pat. Name: YANA ALLAN Study Date: 08/19/2024 10:28am Pat. NO: [id number] Referring MD: ASHLEE RICHTER MD Site: [facility] Supervisor: : 1990 Age: 34 ----- INDICATION ----- [...] Z36.2: Encounter for other screening follow-up Procedures 98043: Limited 1 or more - MARGOT, R, position [id number]: biophysical profile; with non-stress testing HISTORY ----- [...] Name:Jose Luis ALLAN Date:08/19/2024 10:28am Pat. NO: [id number] :ASHLEE RICHTER MD Site:[facility]: :1990Age:34 ----- INDICATION [...] formalformations Z36.2: Encounter for other screeningfollow-up Procedures 91584: Limited 1 or more - [facility], position 42595: biophysical profile; with non-stresstesting HISTORY ----- OB History 4. Para 2 Hu children born living (T) 2. Miscarriages1 T2A1L2 MATERNAL ASSESSMENT ----- Physical Exam Initial weight 109 kg, 240 lb. Initial BMI 42.53kg/m . Blood pressure 125/60 mmHg. Heart rate 90 bpm METHOD ----- EFM. Transabdominal ultrasound examination. View: Good view ----- Hu . Number of fetuses: 1 DATING ----- GA by prior [id number] w + 3 d JAMARCUS by prior [...] NST reactive and reassuring for gestational age. [facility] 04/25. Recommendations: - Continue current surveillance plan. - Daily kick counts are encouraged Thank you for allowing us to participate in the care of this patient. us Brandy Candelario MD US ORDERABLES Final Result * US OB FOLLOW UP PER FETUS (08/19/2024 10:06 AM FEATHER BONER) Only the most recent of3 resultswithin the time period is included. Anatomical Region Laterality Modality Pelvis Ultrasound 08/19/2024 9:39 AM FEATHER BONER Narrative 08/19/2024 10:07 AM FEATHER BONER STL FOLLOW UP ----- Pat. Name: YANA ALLAN Study Date: 08/19/2024 9:39am Pat. NO: [id number] Referring MD: ASHLEE RICHTER MD Site: [facility] Supervisor: Priya Rodriguez RDMS : 1990 Age: 34 [...] Z36.2: Encounter for other screening follow-up Procedures 88852: Ultrasound, uterus, real time with image documentation, [...] 7 lb 2 oz EFW by Hadlock ([id number]) Extremities / Bony Struc Biometry: FL / [...] and date of were verified by the circus supervisor prior to the exam IMPRESSION ----- 1. [...] Name:Jose Luis ALLAN Date:08/19/2024 9:39am Pat. NO: [id number] MD:ASHLEE RICHTER [facility]Priya Rodriguez RDMS :1990Age:34 ----- INDICATION ----- Screening [...] formalformations Z36.2: Encounter for other screeningfollow-up Procedures 14947: Ultrasound, uterus, real time withimage documentation, follow up, transabdominal approach per fetus HISTORY ----- OB History 4. Para 2 Hu children born living (T) 2. Miscarriages1 T2A1L2 MATERNAL ASSESSMENT ----- Physical Exam Initial weight 109 kg, 240 lb. Initial BMI 42.53kg/m METHOD ----- Transabdominal ultrasound examination ----- Hu . Number of fetuses: 1 DATING ----- GA by prior [id number] w + 3 d JAMARCUS by prior [...] 7 lb 2 oz EFW by Hadlock ([id number]) Extremities / Bony Struc Biometry: FL / [...] and date of were verified by the circus supervisor prior tothe exam IMPRESSION ----- 1. Single [...] OB LIMITED + NST (08/15/2024 10:45 AM FEATHER BONER) Anatomical Region Laterality Modality Pelvis Ultrasound 08/15/2024 2:04 PM FEATHER BONER Narrative 08/15/2024 10:21 AM FEATHER BONER MODIFIED BP STUDY ----- Pat. Name: YANA ALLAN Study Date: 08/15/2024 2:04pm Pat. NO: [id number] Referring MD: ASHLEE RICHTER MD Site: [facility] Supervisor: : 1990 Age: 34 ----- INDICATION ----- [...] Z36.2: Encounter for other screening follow-up Procedures 66956: NST/ monitoring 65674: Limited 1 or more - MARGOT, FHR, [...] Name:Jose Luis ALLAN Date:08/15/2024 2:04pm Pat. NO: [id number] MD:ASHLEE RICHTER MD [facility]1990Age:34 ----- INDICATION ----- Screening Follow-Up Previous Miscarriage Maternal Obesity (BMI>40) Complicating Maternal Care for Low Transverse Scar from Previous Delivery (Previous ) CODING ----- Diagnoses Z3A.36: Weeks of gestation O34.211: Maternal care for low transverse scarfrom previous delivery O99.213: Obesity complicating O09.293: Supervision of with other poorreproductive or obstetric history Z36.3: Encounter for screening formalformations Z36.2: Encounter for other screeningfollow-up Procedures 14014: NST/ monitoring 90371: Limited 1 or more - MARGOT, FHR, [...] fetuses: 1 DATING ----- GA by prior [id number] w + 6 d JAMARCUS by prior [...] Final Result from Last 3 Months Insurance [employer] [id number] Care Teams Nc Manager Relationship Specialty Start Date End Date Nando Briscoe MD [facility] [place] [address] PCP - General Family Practice 04/26/16
--- OUTSIDE RECORDS SUMMARY | 2024-08-27 05:41 | XMS_ITS | Continuity of Care Document ---
Author Organization [facility] Address [address] [place] [address] Phone Care Team Providers Care Estate Conservator Name Role Phone Unavailable Unavailable Unavailable Advance Directives Directive Yes / No Effective Date File Name No Information Encounters Encounter Description Practice Location Reason(s) For Visit Diagnoses Date Provider Providers Copied on Encounter [facility], [address] [facility], [place], [place], [id number], tel:[phone] [facility] No Information [id number] No Information Referring Provider: ASHLEE RICHTER, [address] [place] [address],[place], [address]. tel:[phone] Family History Family Member Type Diagnosis Age At Onset No Information Payers Payer name Insurance type Covered libertarian ID Authormedhata dion(s) [facility] POS [id number] CI [id number] Social History Type Description Quantity Date Captured Comments Sex Female Smoking Status No Information Chief Complaint And Reason For Visit No Information History Of Present Illness Encounter Date Complaint History Of Prese nt Illness No Information Instructions Date Instruction Additional Infor mation No Information Assessments Type Assessment Date No Information
--- NOTE | 2024-08-27 05:58 | LDADM ---
This patient, Yana Allan, was admitted to Labor/Delivery/Recovery 120 on 08/27/24 at 05:36. Plans for labor, pain management and were discussed with patient. Patient/family oriented to hospital policies and general routines including ID bracelet, bed and alarms, visiting hours, pain management, procedures, bathroom and other care routines, personal items, smoking policy, room service/diet and guest tray routines, infant security routines, and visiting hours. Patient/Family are encouraged to report perceived risks to care and to ask questions if they do not understand what they are told or what they should do. See OBIX for further documentation.
[2024-08-27] MEDS: LACTATED RINGERS 1,000 ML 125 ML IV CONT ×2 (06:09→08:47)
[2024-08-27] MEDS: ACETAMINOPHEN 500 MG TABLET 1000 MG PO (06:17)
[2024-08-27] MEDS: ONDANSETRON INJ 4 MG/2 ML VIAL IV PUSH (06:30)
[2024-08-27] MEDS: FAMOTIDINE 20 MG/2 ML VIAL IV PUSH (06:30)
--- NOTE | 2024-08-27 06:43 | P.HP_ITS ---
H&P: HPI History of Present Illness Date/Time: 08/27/24 06:43 Chief Complaint: repeat section Narrative: She is a 34 y/o at 38 4/7 weeks with an edc of 09/06/23 admitted for elective repeat section. She has had 2 prior sections. She also is requesting permanent sterilization for satisfied parity. Declines all other non permanent forms of contraception. PNC significant for prior c- sections. Prior was demise. GBS positive. PNC also BMI>40. She has been getting serial surveillance testing which has been reassuring. She has been informed of risk and benefits of repeat section and nonpermanent forms of contraception. She agrees with planned repeat section and tubal sterilization procedure. Review of Systems Review of Systems: All systems reviewed & are unremarkable except as noted in HPI and below Constitutional: Constitutional: Reports no additional constitutional complaints and Denies headache(s) Eyes: Eyes: Denies spots in vision ENT: Reports system reviewed and no additional complaints, except as documented and Denies headache(s) Cardiovascular: Cardiovascular: Denies chest pain and Denies dyspnea Respiratory: Respiratory: Denies dyspnea Gastrointestinal: Gastrointestinal: Reports no additional gastrointestinal complaints Genitourinary: Genitourinary: Reports amenorrhea Musculoskeletal: Musculoskeletal: Reports no additional musculoskeletal complaints Integumentary/Breasts: Skin/Breast: Denies breast mass and Denies rash Neurologic: Denies headache(s) Psychiatric: Psychiatric: Reports no additional psychiatric complaints PMFSH Past Medical History Medical History Miscarriage x2 LGSIL on Pap smear of cervix Asthma Surgical History Surgical History History of colposcopy Delivery by section x2 Family History Family History Other Unknown family medical history Social History Social History Smoking status: Never smoker Second hand tobacco smoke exposure: No Alcohol intake: never Substance use: never Do You Feel Safe in your Home?: Yes Lack of Transportation: No Lack of Food: Never True Current Housing: I Have Housing Concerned About Future Housing: No Difficulty Paying Gas/Electric Bills: No Difficulty Paying for Meds: No Currently Unemployed: No Education: Associate Degree Difficulty w/ Childcare or Family Care: No Spiritual care concerns: No Meds Home Medications and Allergies Home Medications ?Medication ?Instructions ?Recorded ?Confirmed ?Type aspirin 81 mg tablet,delayed 81 mg PO DAILY 02/29/24 08/23/24 History release vitamin#30 30 mg iron-10 1 cap PO DAILY 02/29/24 08/23/24 History mg iron-folic acid 1 mg-omg3 capsule ferrous sulfate 325 mg (65 mg 325 mg PO DAILY 07/04/24 08/23/24 History iron) tablet RSV vac, preF A and preF B(PF) 120 0.5 ml IM ONCE #1 ea 07/31/24 08/23/24 Rx mcg/0.5 mL IM solution (Abrysvo (PF)) Allergies Allergy/AdvReac Type Severity Reaction Status Date / Time mushroom Allergy Unknown Hives Verified 08/23/24 08:41 sesame oil Allergy Unknown Hives Verified 08/23/24 08:41 sunflower oil Allergy Unknown Hives Verified 08/23/24 08:41 Vital Signs Vital Signs - 24 hr 08/27/24 05:58 08/27/24 06:06 08/27/24 06:15 Pulse Rate 100 102 H Blood Pressure 132/81 128/76 Oxygen Delivery Room Air Exam Const: General: no acute distress Eyes: General: appearance normal, both eyes and all related structures Resp: Effort & Inspection: normal respiratory effort Cardio: Rate: regular rate GI: Other: Gravid no fundal tenderness no right upper quadrant pain Skin: General skin exam: no rashes or lesions noted Neuro: Cognition (Neuro): normal cognition Extrem: General: normal to inspection Psych: Mental Status: mental status grossly normal Assessment and Plan Assessment and plan (1) Delivery with history of section: Code(s): O34.219 - Maternal care for unspecified type scar from previous delivery Status: Acute Assessment and Plan: 1. Admit 2. Will proceed with repeat section. (2) Request for sterilization: Code(s): Z30.2 - Encounter for sterilization Status: Acute Assessment and Plan: Will perform sterilization procedure.
--- NOTE | 2024-08-27 06:51 | P.PNAN_ITS ---
Anes - Initial Pre Proc Eval Procedure: Operation Date: 08/27/24 07:00 Proposed Procedures p Repeat Section - Wilner Prabhakar MD Date/Time: 08/27/24 06:51 Surgeon: Wilner Prabhakar MD Pre Op Diagnosis: C/S Patient Data Age: 34 Gender: F Height: 1.6 m Weight: 110 kg Last Vital Signs Pulse 102 H 08/27/24 06:15 BP 128/76 08/27/24 06:15 O2 Del Method Room Air 08/27/24 05:58 Allergies Allergy/AdvReac Type Severity Reaction Status Date / Time mushroom Allergy Unknown Hives Verified 08/23/24 08:41 sesame oil Allergy Unknown Hives Verified 08/23/24 08:41 sunflower oil Allergy Unknown Hives Verified 08/23/24 08:41 Home Medications ?Medication ?Instructions ?Recorded ?Confirmed ?Type aspirin 81 mg tablet,delayed 81 mg PO DAILY 02/29/24 08/23/24 History release vitamin#30 30 mg iron-10 1 cap PO DAILY 02/29/24 08/23/24 History mg iron-folic acid 1 mg-omg3 capsule ferrous sulfate 325 mg (65 mg 325 mg PO DAILY 07/04/24 08/23/24 History iron) tablet RSV vac, preF A and preF B(PF) 120 0.5 ml IM ONCE #1 ea 07/31/24 08/23/24 Rx mcg/0.5 mL IM solution (Abrysvo (PF)) Patient hx anesthesia problems: post op nausea/vomiting Family hx anesthesia problems: none Results Review: All pre-operative results and documents have been reviewed as part of the pre- operative evaluation. PMFSH Past Medical History Medical History Miscarriage x2 LGSIL on Pap smear of cervix Asthma Surgical History Surgical History History of colposcopy Delivery by section x2 Family History Family History Other Unknown family medical history Social History Social History Smoking status: Never smoker Second hand tobacco smoke exposure: No Alcohol intake: never Substance use: never Do You Feel Safe in your Home?: Yes Lack of Transportation: No Lack of Food: Never True Current Housing: I Have Housing Concerned About Future Housing: No Difficulty Paying Gas/Electric Bills: No Difficulty Paying for Meds: No Currently Unemployed: No Education: Associate Degree Difficulty w/ Childcare or Family Care: No Spiritual care concerns: No Anes - Eval Final PreProcedure Day of Procedure 08/27/24 06:51 Patient weight: morbidly obese Heart: regular rate and rhythm Lungs: clear to auscultation Airway: Mallampati scale class II Neurological: alert and oriented Last oral intake: >/= 8 hours ASA classification: III Emergent: no Anesthetic plan: proceed Anesthesia type and monitoring: regional spinal and standard monitoring Results Review: All pre-operative results and documents have been reviewed as part of the pre- operative evaluation. Informed Consent: The patient's anesthetic plan and its attendant risks and benefits were discussed with the patient/family/POA. Questions were solicited and answers provided to the satisfaction of the patient/family/POA.
--- NOTE | 2024-08-27 06:51 | WPDHPUPDATE1 ---
History and Physical Update Update Date/Time: 08/27/24 06:51 History and Physical has been reviewed, including an updated exam of the patient. There are NO changes in the patient's condition. Risks, benefits, and alternatives have been discussed and questions answered. Patient agrees to proceed with procedure.
[2024-08-27] MEDS: ceFAZolin 2 GM/D5W 50 ML 2 GM/50 ML BAG IVPB (06:58)
[2024-08-27] MEDS: OXYTOCIN 30 UNITS/NS 500 ML 30 UNITS/500 ML BAG 125 UNITS IV CONT (08:47)
--- NOTE | 2024-08-27 08:51 | W.PM.OBCSD ---
OB - Delivery Note Procedure Delivery date: 08/27/24 Pre-op diagnosis: Previous Delivery and Other (Previous demise) Post-op Diagnosis: Other ( undesired fertility desires sterilization) Prior to decision for section, ACOG/SMFM labor guidelines were considered and discussed with the patient and staff. Decision made to proceed with the section.: Yes Procedure Performed: Repeat and Tubal Ligation ( Via bilateral salpingectomy) Surgeon: Wilner Prabhakar MD Anesthesia type: Spinal Description of Procedure/Findings: findings: male in 7 lb 9 oz Apgars 8 9 normal uterus and fallopian tubes and ovaries mild adhesions of the left ovary to the left fallopian tube, the lower uterine segment very thin After informed consent, risks and benefits of the procedure was discussed with the patient. The patient was taken to the operating room where she was placed in the dorsal lithotomy position with leftward tilt. After the prior placed epidural anesthesia was found to be adequate, she was then prepped and draped in the usual sterile fashion. A Pfannenstiel skin incision was made with a scalpel and carried through to the underlying layer of fascia. The fascia was then nicked in the midline, extending bilaterally. The fascia was very scarred to rectus muscles and it was dissected off the rectus muscles bluntly and using cautery, superiorly and inferiorly. The rectus muscles were in the midline, and peritoneum was identified and entered bluntly. The pelvic organs were visualized. The bladder blade was then inserted. The vesicouterine peritoneum was identified and was noted to be well below the very thin lower uterine segment. The thinned lower uterine segment entered sharply with scalpel in a transverse fashion, they amniotic sac was entered large amount of clear fluid noted, and the incision was extended with bilateral index fingers in a crescent-shaped fashion. The head was delivered and the rest of the infant was delivered. The nose and mouth suctioned. The cord was clamped twice and cut. the was vigorously crying. The was then handed off to the awaiting pediatric staff. The placenta was then delivered manually. The uterine cavity was sponge curretted. The uterus was then exteriorized. The uterine incision was then closed with 0 vicryl in a running locked fashion. A 2nd layer closed with figure of eights. Incision noted to be hemostatic. Attention was turned to the right fallopian tube which was ligated from the mesosalpinx with the LigaSure. Attention was turned to the left fallopian tube which some scarring of the left ovary to the distal left tube was lysed and the tube was ligated from the mesosalpinx in multiple segments. both fallopian tubes were ligated to within 2 cm of the entrance to the uterus. The posterior cul-de-sac was irrigated and cleared of debris. The uterus was then returned to the abdomen. Bilateral gutters were cleared off all clots and debris. The uterine incision was inspect. There was noted to be an area of bleeding on the left side of the incision. the uterus was exteriorized and an additional qylemw-mx-vjffc stitch was placed at the left side of the incision which was bleeding. Hemostasis was noted. The uterus was placed back into the abdomen. The area was inspected and noted to be hemostatic. Interceed placed on uterine incision. The peritoneum was approximated with 3 0 Vicryl. The muscle bellies were inspected and noted to be hemostatic. The subfascial layer was noted to be hemostatic, and the fascia was closed with 0 Vicryl in a running fashion X2 sutures. The subcutaneous layer was irrigated then approximated with 3-0 Vicryl. The skin was closed with emily. Mepilex dressing was applied. All instruments, needle, and lap counts were correct x3. The patient was taken to the recovery room in stable condition. Specimen: Yes ( placenta and cord and right and left fallopian tube segments) Estimated Blood Loss: 585 Drains: No Packing: No Pathology: Yes ( placenta and cord and right and left fallopian tube segments) Complications: No immediate complications Condition: Stable Disposition: Floor [place] Baby Date of : 08/27/24 Gestational Age by Date: 38 Infant gender: Male Weight (pounds): 7 Weight (ounces): 9 presentation: vertex position: Right Occiput Anterior Placenta delivery description: Manual Removal score one minute: 8 score five minutes: 9
--- NOTE | 2024-08-27 12:00 | PC.NURSE ---
Introductions were made, then consulted with patient to assess needs related to . She is planning to breast and bottle feed. She pumped and bottle fed with her other 2 children. Encouraged understanding of the benefits of skin to skin (demonstrating unwrapping infant and placing upright on her chest), how to watch for early feeding cues, responsive feeding, feeding on demand (aiming for 8-12 times in 24 hours, about every 2-3 hours), building/maintaining a milk supply with pumping when baby bottle feeds. It has been 3 hours since baby fed so we placed him skin to skin. Encouraged watching for early feeding cues and offering the breast when they are noted. Mother voiced understanding of skin to skin, to call if infant does not latch, or if there is a request to begin pumping. Resources used for education were facilitated with inpatient/outpatient resources provided with feeding sheet, name written on the communication board, and the mom/baby guide. Parents voiced understanding of information, demonstrated learning and will call if there is a request for assistance. Reported to the Primary RN.
[2024-08-27] MEDS: KETOROLAC 15 MG/ML VIAL (*BKC) IV PUSH (12:09)
[2024-08-27] MEDS: SIMETHICONE 80 MG TAB.CHEW PO ×2 (12:10→17:40)
[2024-08-27] MEDS: ACETAMINOPHEN 325 MG TABLET 650 MG PO ×3 (12:10→23:54)
--- NOTE | 2024-08-27 12:20 | PC.NURSE ---
Returned to patient room to see if was ready to breastfeed. Siblings and grandparents are currently visiting and mom wants to wait to feed until they have all met baby. Primary RN aware that infant hasn't fed again. Mom encouraged to call out when visitors leave for assistance.
--- NOTE | 2024-08-27 13:30 | PC.NURSE ---
Patient called out for assistance. Baby was skin to skin with mom and showing early feeding cues. We move baby into a cradle hold and attempted to latch to the left breast. Baby alternates between sleeping and crying. We tried to calm him and then attempt to latch to the nipple again. He gave a few small open mouths without much success. After trying on the left breast for about 5 minutes, we moved to football hold on the right breast to facilitate a more awake and offer a new position for him to latch in. He did give several wide gapes and latched to the nipple, with one or two sucks. He then held the nipple in his mouth and wouldn't suck, even with stimulation. We tried for several more minutes and then baby was sleepy so we ended the attempt. At this time, mom would like to give baby another bottle of formula. She does want to attempt to breastfeed again at the next feeding and asked if she could call for assistance again. Assured her that she can call out for help at every feeding if needed. Depending on how baby feeds next at the breast, we will initiate pumping to stimulate mom's breasts. Mom agrees to this plan of care. Reported to primary RN.
--- NOTE | 2024-08-27 15:37 | PC.NURSE ---
Loss of IV Access- Patient's IV occluded, so IV was removed per protocol/ patient request. Patient is a hard stick and does not want a NEW IV at this time. This RN explained to patient the importance of restarting an IV if medically necessary and patient verbalized understanding. This RN encrouaged PO fluids to maintain adequate output and will continue to monitor and reaccess as needed.
--- NOTE | 2024-08-27 17:15 | PC.NURSE ---
Patient is starting a feeding and requested assistance. She has baby skin to skin and he has his eyes open but does not root when his cheeks are stroked. We moved him to cross cradle hold on the right breast. He would not make any attempts to open his mouth. We used a few drops of formula to entice him to latch without success. After several minutes we moved him into a football position. He gave a little more effort and interest with one shallow latch obtained. He refused to suckle at the breast with repeated attempts and stimulation. Mom was offered the option of waiting a half hour and trying again or proceeding with formula supplementation at this time. She prefers to supplement. Encouraged her to initiate pumping now and at every feeding in which baby does not breastfeed so that we may support her milk supply. She has her own breast pump and is familiar with it's use. Advised mom to pump for 10-15 minutes and that she may only get drops but that the stimulation is important to signal her body to make milk. Patient agrees with this plan and will continue to put baby to breast at every feeding before supplementing so that they can both practice and become proficient at . Reported to primary RN.
[2024-08-27] MEDS: DOCUSATE SODIUM 100 MG CAPSULE PO (17:40)
[2024-08-27] MEDS: IBUPROFEN 600 MG TABLET PO ×2 (17:40→23:54)
[2024-08-28] VITALS: BP 115/60; PULSE 81; RESP 16; TEMP 36.3; O2SAT 96
[2024-08-28 04:30] VITALS: BP 115/63; PULSE 84; RESP 16; TEMP 36.9; O2SAT 96
[2024-08-28 05:38] LABS: Basophils Percent Auto 0.4 % (0.2-1.2); Eosinophils Absolute Auto 0.3 K/mm3 (0-0.3); Eosinophils Percent Auto 3.3 % (0-4.4); Hemoglobin 10.2 g/dL (12.0-15.0); Immature Granulocyte Absolute 0.03 K/mm3 (0.00-0.031); Immature Granulocyte Percent A 0.4 % (0-0.5); Lymphocytes Absolute Auto 1.37 K/mm3 (0.9-3.2); Lymphocytes Percent Auto 16.8 % (18.3-44.2); Mean Corpuscular HGB Conc 31.9 g/dl (32-36); Mean Corpuscular Hemoglobin 29.1 pg (26-34); Mean Corpuscular Volume 91.2 fl (80-100); Mean Platelet Volume 9.6 fl (7.4-10.4); Monocytes Absolute Auto 0.9 K/mm3 (0.1-0.6); Monocytes Percent Auto 10.6 % (2.6-8.5); Neutrophils Absolute Auto 5.6 K/mm3 (1.3-6.7); Neutrophils Percent Auto 68.5 % (45.5-73.1); Platelet Count Result 165 k/mm3 (150-375); Red Blood Count 3.51 M/mm3 (4.2-5.4); Red Cell Distribution Width 16.1 % (11.5-14.5); White Blood Count 8.2 K/mm3 (4.5-10.0)
[2024-08-28 06:50] VITALS: BP 105/73; PULSE 88; RESP 18; TEMP 37; O2SAT 96
--- NOTE | 2024-08-28 06:53 | PC.NURSE ---
Patient taylor was removed at 0430, not 0043.
[2024-08-28] MEDS: ACETAMINOPHEN 325 MG TABLET 650 MG PO ×3 (07:01→20:42)
[2024-08-28] MEDS: IBUPROFEN 600 MG TABLET PO ×3 (07:01→20:43)
--- NOTE | 2024-08-28 07:42 | WPDANLDPN2 ---
Anes-Prog Note L&D Date/Time: 08/28/24 07:42 Comfortable throughout: section Neuraxial method: spinal Epidural/Spinal procedure site: clean & non-tender Neuro status: Neuro function grossly intact. Cardiovascular status: normal Respiratory status: normal Airway patency: baseline Mental status: baseline Post-Op hydration status: normal Vital Signs: Last Vital Signs Temp 36.9 C 08/28/24 04:30 Pulse 84 08/28/24 04:30 Resp 16 08/28/24 04:30 BP 115/63 08/28/24 04:30 Pulse Ox 96 08/28/24 04:30 O2 Del Method Room Air 08/27/24 10:40 Pain score (VAS): 07/26 I/O: Intake & Output 08/27/24 08/27/24 08/28/24 15:59 23:59 07:59 Intake Total 2400 450 Output Total 5452 329 4633 Balance 1335 270 -1150 Post-procedural complaints: none Patient feedback: Patient satisfied with anesthetic care.
--- NOTE | 2024-08-28 07:42 | WPDANLDNPN2 ---
Anes-Prog Note L&D-Neuraxial Date/Time: 08/28/24 07:42 Neuraxial medications: intrathecal PF morphine Opiod-related complaints: none Patient feedback: Patient satisfied with post-operative pain management.
--- NOTE | 2024-08-28 08:49 | PC.NURSE ---
On 08/28/24, the student, Molly Solitario, provided care and completed [facility] documentation on this patient. I have reviewed the student's documentation and agree with the findings.
[2024-08-28] MEDS: SIMETHICONE 80 MG TAB.CHEW PO ×3 (08:52→16:54)
[2024-08-28] MEDS: DOCUSATE SODIUM 100 MG CAPSULE PO ×2 (08:52→16:54)
[2024-08-28] MEDS: MULTIVIT/MIN/PREN/FOL AC/IRON TABLET 1 TAB PO (08:52)
--- NOTE | 2024-08-28 09:30 | PC.NURSE ---
Consulted with patient to assess needs related to . Discussed with mother how feeding?went last night. Mom did pump once and got a few drops. Encouraged her to pump at every feeding that baby doesn't breastfeed so that she can support and initiate her milk supply. She has a [employer] wearable pump that she brought from home. She does admit that she dreads pumping, not because it is painful, but because it is an extra step in the process of feeding. She did not have any feedings at breast overnight and says she is interested in trying again today. Encouraged her to call out when she is ready for assistance. Resources provided for inpatient and outpatient services with the feeding sheet, mom/baby guide and name/number written on the communication board. Mother voiced understanding of information and will call if there is a request for assistance. Reported to the Primary RN.
--- NOTE | 2024-08-28 12:01 | P.PNOB_ITS ---
OB - PN: Subj Subjective Date/time seen: 08/28/24 12:01 Interval history: Pain controlled with Tylenol and Ibuprofen. She is bottle and pumping. Baby doing well. Positive flatus. Tolerated regular diet. Ambulated in room without problems. No leg pain. OB - PN: Obj Data Labs 08/28/24 04:50 Labs: Laboratory Results - last 24 hr 08/28/24 04:50 WBC 8.2 RBC 3.51 L Hgb 10.2 L Hct 32.0 L MCV 91.2 MCH 29.1 MCHC 31.9 L RDW 16.1 H Plt Count 165 MPV 9.6 Immature Gran % (Auto) 0.4 Neut % (Auto) 68.5 Lymph % (Auto) 16.8 L Fleming % (Auto) 10.6 H Eos % (Auto) 3.3 Baso % (Auto) 0.4 Lymph # (Auto) 1.37 Fleming # (Auto) 0.9 H Eos # (Auto) 0.3 Baso # (Auto) 0.0 Abs Immat Gran (auto) 0.03 Absolute Neuts (auto) 5.6 Absolute Nucleated RBC 0.000 Nucleated RBC % 0.0 OB - PN A/P Assessment and Plan (1) Delivery by section: Status: Acute Assessment and Plan: POD1. Doing well. Continue routine post care. Time Spent With Patient Time: Total time spent is greater than 50% in coordination of care (as documented) at patient's floor/unit and/or counseling patient: Exam 2 Const: General: comfortable and no acute distress Resp: Effort & Inspection: normal respiratory effort GI: Other: dressing intact no soiling Neuro: General: oriented to person, oriented to place and oriented to time Extrem: General: normal to inspection and no calf tenderness Psych: Mental Status: mental status grossly normal Affect: normal affect
[2024-08-28] MEDS: LIDOCAINE 5% PATCH 1 PATCH TRANSDERM (13:02)
[2024-08-28 20:20] VITALS: BP 118/71; PULSE 78; RESP 18; TEMP 36.9; O2SAT 99
[2024-08-28] MEDS: HYDROcodone/acetaminophen (*CRX) 5-325 MG TABLET 1 TAB PO (20:41)
[2024-08-29] MEDS: SIMETHICONE 80 MG TAB.CHEW PO (07:20)
[2024-08-29] MEDS: MULTIVIT/MIN/PREN/FOL AC/IRON TABLET 1 TAB PO (07:21)
[2024-08-29] MEDS: ACETAMINOPHEN 325 MG TABLET 650 MG PO (07:21)
[2024-08-29] MEDS: DOCUSATE SODIUM 100 MG CAPSULE PO (07:21)
[2024-08-29] MEDS: IBUPROFEN 600 MG TABLET PO (07:21)
[2024-08-29 08:00] VITALS: BP 115/85; PULSE 90; RESP 18; TEMP 36.5; O2SAT 97
--- NOTE | 2024-08-29 09:00 | PC.NURSE ---
0810 Introductions were made, then consulted with patient to assess needs related to . Discussed with mother her?plans to feed?her infant and the?experience so far. Mother plans on pumping and bottle feeding, she does not want to put baby to breast. Mother has her own pump that she is using, instructions given on cleaning, care, usage, that there should be no pain, pumping schedule for milk production, collection, and storage of human milk. Patient declined assessment for correct placement and flange size, she was told to pump for comfort and nipple stretching/stimulation for adequate milk production every 3 hours (8 times in 24 hours) 1-2 times at night. Parents are encouraged to record the pumping schedule on the feeding sheet. has had appropriate feedings in the last 24 hours meets the outcomes for weight, output, blood sugar and jaundice at this time. Reinforced understanding of milk production, transition of milk, signs of adequate intake, transition of stool, prevention/relief of engorgement, plugged ducts, mastitis, responsive feeding watching for feeding cues, community resources, and when to call a provider using the resource of the feeding sheet along with the mom and baby guide. Mother voiced understanding of the education shared and resources were provided for inpatient and outpatient services with the feeding sheet, mom/baby guide and name written on the communication board. Mother voiced understanding of information and will call if there is a request for assistance. Reported to the Primary RN.
[2024-08-30 11:21] VITALS: BP 119/74; PULSE 94; RESP 18; TEMP 36.9; O2SAT 100
== END 2024-08-29 11:43 | disposition home or self-care (01) | DRG 785 ==
LOC: ANHLDR 05:39 → ANHOB2 10:54
PROVIDERS: Admitting Provider Obstetrics & Gynecology; PCP Family Medicine; Visit Provider Obstetrics & Gynecology
PROC: 10D00Z1 Extraction of Products of Conception, Low, Open Approach (ICD-10-PCS; CPT 59514; principal; 2024-08-27 07:00)
DX: O34.211 Maternal care for low transverse scar from previous cesarean delivery (principal); Z37.0 Single live birth; Z3A.38 38 weeks gestation of pregnancy; O99.824 Streptococcus B carrier state complicating childbirth; Z30.2 Encounter for sterilization
CPT/HCPCS: 36415; 85025; 85027; 86592; 86703; 86850; 86900; 86901; 88302; 88307; A9270; G0432; J0690; J1885; J2274; J2371; J2405; J2590; J7120